=== PATIENT | female | born 1965 | race Caucasian/White ===

== ENCOUNTER 2022-06-26 09:39 | Outpatient (CLI) | payer BC, SELFPAY ==
[2022-06-26 11:23] LABS: INR 1.06 (0.91-1.10); Prothrombin Time 14.3 Seconds
== END 2022-06-26 09:40 | disposition home or self-care (01) ==
LOC: NFLDREF 09:40
PROVIDERS: PCP Family Medicine; Visit Provider Family Medicine
DX: Z01.818 Encounter for other preprocedural examination (principal)
CPT/HCPCS: 85610

== ENCOUNTER 2022-11-02 08:02 | Day surgery (SDC) | payer BC, SELFPAY ==
[2022-11-02] VITALS (14 sets, daily range): BP systolic 88–123; BP diastolic 54–94; PULSE 45–64; RESP 16; TEMP 36.2–36.4; O2SAT 94–99; BMI 28.0
[2022-11-02] MEDS: SODIUM CHLORIDE 0.9 % (FLUSH) 10 ML SYRINGE IVF (08:18)
[2022-11-02] MEDS: LACTATED RINGERS 1000 ML 1,000 ML 100 ML IV (08:18)
[2022-11-02] MEDS: CEFAZOLIN 2 GM in 0.9 % SODIUM CHLORIDE Mini-bag 100 ML IVPB (11:12)
[2022-11-02] MEDS: ROPIVACAINE 0.5% 30 ML 150 MG INJECTION (11:42)
--- NOTE | 2022-11-02 11:54 | W.ANESCHARGE ---
Anesthesia Charges Start Date/Time Anesthesia Start Date: 11/02/22 Anesthesia Start Time: 11:02 Stop Date/Time Anesthesia Stop Date: 11/02/22 Anesthesia Stop Time: 11:52 Summary Emergency: No
--- NOTE | 2022-11-02 12:00 | PM.ORPRC ---
Procedure Note Date of procedure: 11/02/22 Procedure: PREOPERATIVE DIAGNOSIS: 1. Left knee medial meniscus tear POSTOPERATIVE DIAGNOSIS: 1. Left knee medial meniscus tear PROCEDURE: 1. Left knee arthroscopic partial medial menisectomy SURGEON: Kang Jennings M.D. NUCLEAR CHEMISTRY TECHNICIAN: Otto MCKEON. Of note, an internet marketing assistant was critical for this case to aid in patient positioning, knee manipulation, instrument exchange, and closure. ANESTHESIA: Spinal EBL: 2ml TOURNIQUET: 25 minutes at 300 torr COMPLICATIONS: None evident INDICATIONS: The patient is a pleasant 57-year-old female who has experienced left knee pain particularly with any twisting or turning. Physical exam was concerning for medial meniscus tear, this was confirmed on MRI. Additionally, attempted nonoperative management has been tried, and failed. Thus, surgery was recommended. FINDINGS: Radial tear primarily but somewhat complex posterior horn medial meniscus. Posterior root was intact. ACL and PCL were intact robust. Lateral compartment showed intact lateral meniscus. 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 No loose bodies. DESCRIPTION OF PROCEDURE: After a thorough discussion of risks, benefits, and alternatives, the patient was brought to the operating room and placed upon the operating table. Induction of anesthesia was undertaken as previously noted. 2g iv Ancef was administered within 1 hr of incision preoperatively. Appropriate time-out was performed identifying proper patient, site, and procedure. The left lower extremity was prepped and draped in the appropriate sterile fashion using ChloraPrep. The limb was exsanguinated and tourniquet inflated. Anterolateral and anteromedial portals were established with an 11 blade, and a diagnostic arthroscopy was performed. This identified the findings as noted above. Following the diagnostic arthroscopy, a partial medial menisectomy was performed with the combination of basket forceps and a motorized shaver. Following this, the meniscus was re-probed and found to be stable. Approximately 15 % of the overall meniscus required resection. At this stage, the shaver was reinserted into the suprapatellar pouch and all remaining meniscal debris was evacuated. Instruments were removed, excess fluid was drained, and closure performed with 4-0 Monocryl with Steri-Strips. Dressings were applied, the tourniquet deflated, and the patient was awoken from anesthesia and transferred to the PACU in stable condition. PLAN: 1. Weightbear as tolerated operative extremity. Crutch / walker ambulation assistance PRN. Straight leg raise to be initiated starting tomorrow by the patient. 2. Ice, acetominophen and/or ibuprofen, and Percocet for pain as needed. 3. Knee range of motion and quad sets/straight leg raise regularly 4. Follow up with PA visit in 7-10 days. for a wound check. Initiate physical therapy at that time
--- NOTE | 2022-11-02 12:18 | W.ANESCHARGE ---
Anesthesia Charges Start Date/Time Anesthesia Start Date: 11/02/22 Anesthesia Start Time: 11:02 Stop Date/Time Anesthesia Stop Date: 11/02/22 Anesthesia Stop Time: 11:52 Summary Emergency: No
== END 2022-11-02 13:39 | disposition home or self-care (01) ==
PROVIDERS: PCP Family Medicine; Visit Provider Orthopaedic Surgery Sports Medicine
PROC: (CPT 29870; principal; 2022-11-02 10:00)
DX: S83.232A Complex tear of medial meniscus, current injury, left knee, initial encounter (principal); M25.562 Pain in left knee; M94.262 Chondromalacia, left knee
CPT/HCPCS: 29881; 01400; J0690; J1100; J2250; J2400; J2405; J2795; J3010; J7120

== ENCOUNTER 2023-02-12 10:45 | Outpatient (RCR) | payer BC, SELFPAY | END 2023-06-10 23:59 | disposition home or self-care (01) | PROVIDERS: PCP Family Medicine; Visit Provider Specialist | DX: M48.062 Spinal stenosis, lumbar region with neurogenic claudication (principal); Z51.89 Encounter for other specified aftercare | CPT/HCPCS: 97110; 97140; 97162 ==

== ENCOUNTER 2023-03-31 10:16 | Outpatient (RCR) | payer BC, SELFPAY ==
--- OUTSIDE RECORDS SUMMARY | 2022-08-04 13:17 | XMS_ITS | Clinical Summary ---
:1965 Author Organization [facility] [place] [address] Care Team Providers Name Role Phone Mercedez Church MD Primary Care Provider [phone] Allergies Active Allergy Reactions Severity Noted Date Comments Hydroxychloroquine Rash Low 12/18/2021 Venom-Honey Bee Hives High 12/18/2021 Medications Medication Sig Dispensed Refills Start Date End Date Status calcium Take 1 Tablet by 0 Act josh carbonate-vitamin D3, mouth once daily. 600 mg-125 unit, tablet zinc gluconate 50 mg Take 50 mg by mouth 0 Active tablet once daily. cholecalciferol Take 3,000 units by 0 Active (VITAMIN D3) 1,000 mouth once daily. unit tablet thyroid (ARMOUR Take 30 mg by mouth 0 04/17/2021 Active THYROID) 30 mg tablet once daily. folic acid 1 mg Take 1 mg by mouth 0 Active tablet once daily. EPINEPHrine (AUVI-Q) Inject 0.15 mg 0 04/18/2020 Active 0.15 mg/0.15 mL atIn intramuscular each auto-injector time if needed for Anaphylaxis or Allergic Reaction. escitalopram oxalate Take 10 mg by mouth 0 2 Active (LEXAPRO) 10 mg once daily. tablet methotrexate Take 12.5 mg by 0 A ctive (RHEUMATREX) 2.5 mg mouth every Wednesday. tablet nadoloL (CORGARD) 80 Take 80-120 mg by 0 12/24/2021 Active mg tablet mouth once daily. pregabalin (LYRICA) Take 75 mg by mouth 0 04/17/2021 Active 75 mg capsule once daily. rizatriptan (MAXALT) Take 10 mg by mouth 0 Active 10 mg tablet 2 times daily if needed for Migraine. cycloSPORINE 0.05 % Place 1 Drop into 0 Active drop the eye(s) twice daily 12 hours apart. magnesium citrate 100 Take 100 mg by 0 Active mg tab mouth once daily. acetaminophen Take 2 Tablets 0 07/02/2022 Active (TYLENOL EXTRA (1,000 mg) by mouth STRGTH) 500 mg every 6 hours if tabletIndications: needed for Pain. Acute post-operative Max acetaminophen pain dose: 4000mg in 24 hrs. oxyCODONE Take 1 to 2 Tablets 35 Tablet 0 07/02/2022 Active (ROXICODONE) 5 mg (5-10 mg) by mouth immediate release every 4 hours if tabletIndications: needed for Pain. Acute post-operative pain sennosides-docusate Take 1 to 4 Tablets 30 Tablet 0 07/02/2022 Active (SENOKOT S) (8.6-50 by mouth twice mg) daily. tabletIndications: Constipation due to opioid therapy methocarbamoL Take 1 Tablet (750 30 Tablet 0 07/02/2022 Active (ROBAXIN) 750 mg mg) by mouth every tabletIndications: 6 hours if needed Acute post-operative for Muscle Spasm. pain WalkerIndications: Walker with front 1 Each 0 07/02/2022 Active Rheumatoid arthritis wheels for home use with rheumatoid for 3 months. factor of multiple sites without organ or systems involvement (HC) Active Problems Problem Noted Date Anxiety disorder 06/30/2022 Essential tremor 06/30/2022 Fibromyalgia 06/30/2022 Hypothyroidism 06/30/2022 Migraine 06/30/2022 Rheumatoid arthritis with rheumatoid factor of multipl e sites without 06/30/2022 organ or systems involvement S/P lumbar fusion 06/30/2022 Encounters Date Type Specialty Care Team Description 06/30/2022 Anesthesia Event Emmanuel Davis MD Augustin, Joshua Ryan, DO 06/30/2022 Surgery Dora Castellano Decompression - MD Dang Hemilaminotomy/ Discectomy L3 to: L5, Post erior Spine Fusion wi th Instrumentation L3 to: L5 06/30/2022 - Hospital Encounter Dora Castellano Acute pos t-operative pain (Primary Dx); 07/02/2022 MD Dang Constipation du e to opioid therapy; Rheumatoid arth ritis with rheumatoid factor of multiple sites without organ or systems involvement (HC) Discharge Summary - Rae Danielle NP - 07/16/2022 1:33 PM CDT HOSPITAL DISCHARGE SUMMARY Patient Name: Sujata fajardo Date of : 1965 Age: 57 y.o. [id number] Primary Physician: Mercedez Church MD Admission Date: 06/30/2022 Discharge Date: 07/02/2022 Ms. Sujata Russell is a 5 7 y.o. who underwent Decompression - Hemilaminotomy/Discectomy L3 to: L5, Posterior Spine Fusion with Instrumentation L3 to: L5, Transforaminal Lumbar Interbody Fusion L3 to: L5 on 06/30/[address] Rena rodriges, Dora Leong MD; anesthesia General, EBL 100 ml, OR time 2 Hr 56 Min 22 Sec with no immediate complications. She will be discharged from [facility] to home. PRINCIPAL DIAGNOSIS CAUSING ADMISSION: 1) Stenosis, Lumbar - w/Neurogenic Claudication M48.0622) Spondylolisthesis, Lumbar M43.16 DISCHARGE MEDICATIONS Your Home Medicines START taking these medicines Instructions acetaminophen 500 mg tablet For diagnoses: Acute post-op erative pain Commonly known as: TYLENOL E XTRA STRGTH Take 2 Tablets (1,000 mg) b y mouth every 6 hours if needed for Pain. Max acetaminophen dose: 4000mg in 24 hrs. methocarbamoL 750 mg tablet For diagnoses: Acute post-op erative pain Commonly known as: ROBAXIN Take 1 Tablet (750 mg) by m outh every 6 hours if needed for Muscle Spasm. oxyCODONE 5 mg immediate rel ease tablet For diagnoses: Acute post-op erative pain Commonly known as: ROXICODON E Take 1 to 2 Tablets (5-10 m g) by mouth every 4 hours if needed for Pain. sennosides-docusate (8.6-50 mg) tablet For diagnoses: Constipation due to opioid therapy Commonly known as: SENOKOT S Take 1 to 4 Tablets by mout h twice daily. Walker For diagnoses: Rheumatoid ar thritis with rheumatoid factor of multiple sites without organ or systems involvement (HC) Walker with front wheels fo r home use for 3 months. CONTINUE taking these medici mamie Instructions calcium carbonate-vitamin D3 (600 mg-125 unit) tablet Take 1 Tablet by mouth once daily. cholecalciferol 1,000 unit t ablet Commonly known as: VITAMIN D 3 Take 3,000 units by mouth o nce daily. cycloSPORINE 0.05 % Drop Place 1 Drop into the eye(s ) twice daily 12 hours apart. EPINEPHrine 0.15 mg/0.15 mL auto-injector Commonly known as: AUVI-Q Inject 0.15 mg intramuscula r each time if needed for Anaphylaxis or Allergic Reaction. escitalopram oxalate 10 mg t ablet Commonly known as: LEXAPRO Take 10 mg by mouth once da suyapa. folic acid 1 mg tablet Take 1 mg by mouth once brinda ly. magnesium citrate 100 mg Tab Take 100 mg by mouth once d aily. methotrexate 2.5 mg tablet Commonly known as: RHEUMATRE X Take 12.5 mg by mouth every Wednesday. nadoloL 80 mg tablet Commonly known as: CORGARD Take 80-120 mg by mouth onc e daily. pregabalin 75 mg capsule Commonly known as: LYRICA Take 75 mg by mouth once da suyapa. rizatriptan 10 mg tablet Commonly known as: MAXALT Take 10 mg by mouth 2 times daily if needed for Migraine. thyroid 30 mg tablet Commonly known as: ARMOUR TH YROID Take 30 mg by mouth once da suyapa. zinc gluconate 50 mg tablet Take 50 mg by mouth once da suyapa. Where to get your medicines These medications were sent to [facility] [address] [address] Hours: Open 24 Hours ?? methocarbamoL 750 mg tabl et ?? oxyCODONE 5 mg immediate release tablet ?? sennosides-docusate (8.6- 50 mg) tablet You have received printed pr escription(s) for these medicines or supplies. Take these to your preferred pharmacy. Bring a paper prescription f or each of these medications ?? Walker Prescriptions for these medi cines or supplies were NOT printed nor sent to your preferred pharmacy. Check with your doctor if you have questions. Check with your doctor if yo u have questions. ?? acetaminophen 500 mg tabl et FOLLOW-UP: She should return to clinic in 6 weeks or as scheduled Additional followup: NA BRIEF HOSPITAL COURSE: This 57 y.o. female [facility] Procedure(s): Decompression - Hemilaminoto my/Discectomy L3 to: L5, Posterior Spine Fusion with Instrumentation L3 to: L5 Transforaminal Lumbar Interb scott Fusion L3 to: L5. The patient had a stable post operative course. Standard prophylactic antibiotics were administered for 24 hours post surgery and the patient received D VT prophylaxis per service p rotocol. The patient's pain was initially controlled on intravenous pain medications and then weaned to oral medications prior to discharge. The patients pain was well contro lled and they met mobility e xpectations appropriate for the discharge location. The patient has normal bowel and bladder function. The incision is clean, dry and intact. Physical Examination: Appears comfortable Alert and oriented. Appropri ate. Pleasant mood. Incision covered - clean and dry Motor exam: Grossly intact symmetrically against moderate resistance in BLE along: Quads/Hamsrings/TA/ EHL/GS Sensory exam: Intact to light touch symmet rically throughout the BLE. Vascular exam: Distal pedal pulses intact t o palpation symmetrically in BLE. No significant distal edema in BLE. Abdomen: soft, non-tender No sustained beats of ankle clonus. No calf tenderness to palpat ion. SCDs in place. PROCEDURES PERFORMED DURING HOSPITALIZATION: Procedure(s): Decompression - Hemilaminoto my/Discectomy L3 to: L5, Posterior Spine Fusion with Instrumentation L3 to: L5 Transforaminal Lumbar Interb scott Fusion L3 to: L5 COMPLICATIONS IN HOSPITAL: N A IMPORTANT PENDING TEST RESUL TS: NA PERTINENT FINDINGS/RESULTS A T DISCHARGE: NA After Discharge Orders and I nstructions Additional information abou t your medicines: Prescription Pain Medicine: - When at home, alternate Ty lenol and your prescription pain medication (oxycodone, hydromorphone, morphine, tramadol) for better control of breakthrough pain. Alternating between the two types of medications helps control pain better. - Do not drink alcohol while taking prescription pain medicine. - Do not drive any motor veh icles while taking prescription pain medicines or any medicines that make you sleepy. - Take the medicine at the t leesa of the day when you most often feel pain. This may be: when you wake up in the morning, before you start certain activities, or when you are ready for bed. Cutting back strategies: - As your pain decreases, yo u can go for longer times between doses (from 4 hours to 6 or 8 hours). - Reduce dose by taking a sm aller amount per dose, such as 1 pill instead of 2 or ?? instead of 1, especially for Opioid medications. - Start decreasing pain medi cine as your pain decreases. Tylenol: (acetaminophen) - When at home, alternate Ty lenol and your prescription pain medication (oxycodone, hydromorphone, morphine, tramadol) for better control of breakthrough pain. Alternating the two medications helps with breakthrough pain. - Many pain medicines have a cetaminophen in them. Do not take more than 3,000 to 4,000 milligrams (3-4 grams) of acetaminophen in 24 hours (more than that could damage your liver) - Acetaminophen is also foun d in cough and cold medicines. What if the above strategies do not control your pain? If the above solutions do not help, contact your surgeon. Additional information abou t your medicines: Make sure you are taking st ool softeners while you are taking prescription pain medications (narcotics), to prevent constipation. After Hospital Follow Up Ap pointment(s) Please follow up with Dora Voss MD at [facility] in 4- 6 weeks. If you follow with your surg tammy at [facility], call [phone] for questions, or to make an appointment. If you follow with your surg tammy at [facility], please call [facility] at [phone] When to follow up: 4 to 6 w eeks Caring for your wound or in cision: - Steri Strips will fall of f on their own; do not remove them. - No need to cover your inci ashley. - You may take a shower. It is okay to get the incision wet. Do not scrub the incision. Gently pat it dry. - Do not soak, rub, or scrat ch the incision. - DO NOT put any ointment, c ream, or lotions on the incision for 6 weeks. - IF the incision starts dr pablo, do not get it wet. Please cover it with gauze and call the surgeon at [phone]. Information about NSAIDS NSAIDs (Non-Steroidal Anti- Inflammatories): A) For fusion surgeries: - If your surgeon approves u se of NSAIDs, you may take non steroid anti- inflammatory drugs such as Ibuprofen (Advil??, Motrin??), Relafen??, Naproxen (Aleve??) for a period of 3-5 days for breakthrough pain especially after supply of Opioid medications is completed. Do not take these medications unless your surgeon approved it, as these medicines may interfere with bone healing. B) For decompression surgeri es: - If you took medications ramires ch as Ibuprofen (Advil??, Motrin??), Relafen??, Naproxen (Aleve??), Celebrex?? before surgery, this can be resumed 72 hours after surgery. Do not take if you have been told by a physician to avoid these medications. Information about smoking a nd healing: - DO NOT SMOKE - nicotine interferes with t he healing process - accept help from family an d friends Information about your medi cation refills: For Opioid medication refil ls: - Be sure to call your surge on for refills at least 24 hours prior to need (prescription pain medications may need more time, as a written prescription is needed for refills). MEDICATIONS cannot be refi lled on weekends or holidays , or after 4:00 p.m. during the week. Moving around after your ho spital visit: - do not bend, twist, lift or sit for long periods of time - No lifting more than 5 bright nds - do not put your head below the level of your heart - walking is a very importan t part of your recovery - walk a little further each day - it is best to walk on leve l ground - do not use stair climbing for exercise - you may climb stairs as ne eded, but not for exercise - YOUR ONLY EXERCISE PROGRAM RIGHT NOW IS WALKING - follow your physical thera py or rehabilitation program as instructed by your surgeon - follow specific exercise p sylvesterram outlined in the spine manual by your surgeon, therapist, supervisor poultry processing - stay away from hot tubs, t ub baths, pools, lakes until your surgeon has given you the OK - shower as directed by your health care provider Patient Instruction post bl adder scan Same Day Discharge patients If unable to urinate in 6-8 hours after discharge, return to Emergency Room with your discharge instructions. Primary Care Provider christofer w up appointment(s) Follow up with your Primary Care Provider in 5 days When to follow up: 1 to 5 d ays Recommendations for outpati ent provider Specific recommendations to be addressed at the follow up visit - routine post-op visit Reason(s) medications were s topped or changed - Anticoagulation/Oxygen Recom mendations - Tests and Studies needed - Remove dressing, then leave open to air: If you leave the hospital w ith a dressing over your incision, you can remove this when you get home. If your incision begins to drain, cover and call the office for further instructions. What you may eat and drink after your hospital stay: DIET: - eat a nutritionally well-b alanced diet - eat small amounts more oft en - less physical activity, ramires rgery and medication can cause constipation - increase fiber (fruits, wh ole grains and raw vegetables) and fluids - drink 6-8 glasses of water per day to prevent constipation When should you be concerne d? Your surgeon is Emerald Castellano MD Please call your surgeon if you have any of the following: - temperature above 101.6 de grees Fahrenheit - nausea and vomiting that w ill not stop - severe uncontrolled pain - redness, tenderness, drain age from the incisional area that will not stop, or signs of infection (pain, swelling, redness, unpleasant odor, warmth, or green or yellow discharge around the site) - severe headache - visual disturbances - dizziness or lightheadedne ss that will not stop - hives (itchy raised rash) - difficulty breathing - extreme fatigue (cannot ge t out of bed) - any change in sensation ramires ch as new numbness or tingling - any change in movement suc h as new weakness or inability to move arms or legs as usual - new confusion - any change or loss in zachery l or bladder function - burning or urgency on urin ation - if no bowel movement in th ree (3) days - chest pain - if any worries about the f it of your brace - any other questions or wor jo-ann you may have after discharge - in an emergency, CALL 911 or go to an Emergency Department at a nearby hospital [facility] The reason you were in the hospital is for spine surgery. Your incision was closed wi th: - Steri Strips; they will f all off on their own; do not remove them. Total time spent for dischar ge on date of discharge: 20 minutes Rae Danielle CNP [facility] 06/29/2022 Travel 06/21/2022 Refill Orion Pham MD Refi ll Request (Meloxicam) from Last 3 Months Social History Tobacco Use Types Packs/Day Years Used Date Never Smoker Smokeless Tobacco: Never Used Tobacco Cessation: Counseling Given: Yes Alcohol Use Standard Drinks/Week Comments Yes 0 (1 standard drink = 0.6 oz pure alcoho l) rare Alcohol Habits Answer Date Recorded How often do you have a drink containing alcohol? Not asked How many drinks containing alcohol do you have on a typical Not asked day when you are drinking? How often do you have six or more drinks on one occasion? No t asked Comment: rare 06/29/2022 Sex Assigned at Date Recorded Not on file Obstetrics History Last Filed Vital Signs Vital Sign Reading Time Taken Comments Blood Pressure 125/79 07/02/2022 7:33 AM CDT Pulse 59 07/01/2022 3:00 PM CDT Temperature 36.8 ??C (98.2 ??F) 07/02/2022 7:33 AM CDT Respiratory Rate 16 07/02/2022 7:33 AM CDT Oxygen Saturation 96% 07/02/2022 7:33 AM CDT Inhaled Oxygen Concentration - - Weight 78.7 kg (173 lb 6.4 oz) 06/30/2022 8:02 AM CDT Height 170.2 cm (5' 7) 06/30/2022 8:02 AM CDT Body Mass Index 27.16 06/30/2022 8:02 AM CDT Plan of Treatment Health Maintenance Due Date Last Done Comments Tdap 1976 Depression screening for age 12+ 1977 BMI (ht and wt on same day) for 1983 age 18+ Hepatitis C screening for age 0705/27/1983 18-79 Zoster (shingles) series for age 0705/27/1984 50+ (1 of 2) Tetanus booster 1985 Colonoscopy through age 75 2010 Lipids for age 45-75 2010 Mammogram for age 45-75 2010 Pap test for age 21-65 08/20/2020 08/20/2017, 08/20/2017, 10/05/2014, Additional history exists COVID-19 vaccine series (3 - 06/09/2022 05/12/2022, 021 Pfizer risk series) Influenza for age 50-64 07/23/2022 Medical Devices Implanted Type Area Senior Sql Developer Device Shelf Model / Identifier Expiration Serial / Date Lot [id number] 6cc Patterson Dbf Putty Dbm N/A: [employer] 06/04/2024 [id number] / Implanted: Qty: 1 on 06/30/2022 by Dora Voss MD at [facility] [id number] / Explanted: at [facility] (Quantity not on file) Procedures Procedure Name Priority Date/Time Associated Diagnosis Comme nts HEMOGLOBIN Early AM 07/02/2022 7:40 Results for this AM CDT procedure are i n the results section. XR SPINE LUMBAR 2 Routine 07/01/2022 12:38 Result s for this VIEWS PM CDT procedure are i n the results section. XR SPINE 1 VIEW Routine 06/30/2022 10:08 Results for this PORTABLE AM CDT procedure are i n the results section. XR SPINE LUMBAR 2 Routine 06/30/2022 9:54 Results for this VIEWS PORTABLE AM CDT procedure are in the results section. XR SPINE 1 VIEW Routine 06/30/2022 9:04 Results f or this PORTABLE AM CDT procedure are i n the results section. XR SPINE 1 VIEW Routine 06/30/2022 8:30 Results f or this PORTABLE AM CDT procedure are i n the results section. ENDOTRACHEAL TUBE Routine 06/30/2022 8:01 Results for this AM CDT procedure are i n the results section. ENDOTRACHEAL TUBE Routine 06/30/2022 8:01 Results for this AM CDT procedure are i n the results section. ENDOTRACHEAL TUBE Routine 06/30/2022 8:01 Results for this AM CDT procedure are i n the results section. FUSION TRANSFORAMINAL Tier 3 06/30/2022 7:10 1) Stenosis, Lum bar SPINAL INTERBODY LEVEL AM CDT - w/Neurogenic 2 Claudication M48.0622) Spondylolisthesis, Lumbar M43.16 Case Notes [facility] [address] FUSION POSTERIOR SPINE Tier 3 06/30/2022 7:10 AM CDT 1) Steno sis, Lumbar - LEVEL 02 w/Neurogenic Claudication M48.0622) Spondylolisthesis, Lumbar M43.16 Case Notes [facility] [facility] Vitality[facility] Special Needs Wt 177 HEMOGLOBIN Early AM 06/30/2022 6:37 AM CDT Resul ts for this procedure are i n the results section . EKG 12 LEAD Routine 06/30/2022 6:25 AM CDT Resul ts for this procedure are i n the results section . SCAN CORRESP-LABORATORY 06/29/2022 12:00 AM CDT Results for this RESULTS procedure are i n the results section . from Last 3 Months Results Hemoglobin AM (07/02/2022 7:40 AM CDT)Only the most recent of2 resultswithin the time period is included. P athologist Signature HEMOGLOBIN 13.3 12.0 - 16.0 07/02/2022 [facility] g/dL 8:45 AM CDT LABORATORY[facility] MCV 94 80 - 100 fL 07/02/2022 [facility] 8:45 AM CDT LABORATORY-[facility] Specimen Anatomical Collection Method / Collection Time Recei jeff Time (Source) Location / Volume Laterality Blood BLOOD SPECIMEN / Venipuncture / 07/02/2022 7:40 2021 7:49 Unknown Unknown AM CDT AM CDT Alfonso Sanchez MD HEMATOLOGY Performing Organization Address City/State/ZIP Code Phon e Number [facility] [address] [place] [address] LABORATORY-CENTRAL 2000 LABORATORY XR SPINE LUMBAR 2 VIEWS (07/01/2022 12:38 PM CDT) Anatomical Region Laterality Modality LUMBAR SPINE Digital Radiography Specimen (Source) Anatomical Collection Method Collection Time Re ceived Time Location / / Volume Laterality 07/01/2022 2:16 PM CDT Impressions 07/01/2022 2:16 PM CDT Posterior and interbody fusion L3-L5. Dictated by Emmanuel Castle MD @ Jul 01 2 022 ??2:16PM (Electronically Signed) ?? Narrative 07/01/2022 2:16 PM CDT For Patients: ??As a result of the Cures Act, medical imaging exams and procedure report s are released immediately into your [facility] medical record. ??You may view this report before your referring provider. ??If you have questions, please contact your health care provider. Indication: Spinal fusion Technique: Lumbar spine 2 view Procedure Note Emmanuel Castle MD - 07/01/2022For matting of this note might be different from the original. For Patients: As a result of the Cures Act, medical imaging exams and procedure reports are released immediately into your electronic medical record. You may view this report before your referring provider. If you have questions, please contact yo health care provider. Indication: Spinal fusion Technique: Lumbar spine 2 view IMPRESSION: Posterior and interbody fusion L3-L5. Dictated by Emmanuel Castle MD @ Jun 10 2 022 2:16PM (Electronically Signed) [facility] XR SPINE 1 VIEW PORTABLE (06/30/2022 10:08 AM CDT)Only the most recent of3 resultswithin the time period is included. Anatomical Region Laterality Modality Spine, CERVICAL SPINE, THORACIC SPINE, LUMBAR SPINE Digital Radiography Specimen (Source) Anatomical Collection Method Collection Time Re ceived Time Location / / Volume Laterality 06/30/2022 2:27 PM CDT Impressions 06/30/2022 2:27 PM CDT Interbody and posterior fusion L3-L5. Dictated by Emmanuel Castle MD @ Jun ??2021 ??2:27PM (Electronically Signed) ?? Narrative 06/30/2022 2:27 PM CDT For Patients: ??As a result of the Cures Act, medical imaging exams and procedure report s are released immediately into your [facility] medical record. ??You may view this report before your referring provider. ??If you have questions, please contact your health care provider. Indication: Spinal fusion Technique: Lumbar spine 1 view Procedure Note Emmanuel Castle MD - 06/30/2022For matting of this note might be different from the original. For Patients: As a result of the Cures Act, medical imaging exams and procedure reports are released immediately into your electronic medical record. You may view this report before your referring provider. If you have questions, please contact [facility] health care provider. Indication: Spinal fusion Technique: Lumbar spine 1 view IMPRESSION: Interbody and posterior fusion L3-L5. Dictated by Emmanuel Castle MD @ Jun 30 2:27PM (Electronically Signed) Dora Castellano MD GENERAL IMAGING XR SPINE LUMBAR 2 VIEWS PORTABLE (06/30/2022 9:54 AM CDT) Anatomical Region Laterality [facility] Spine, LUMBAR SPINE Digital Radiography Specimen (Source) Anatomical Collection Method Collection Time Re ceived Time Location / / Volume Laterality 06/30/2022 2:27 PM CDT Impressions 06/30/2022 2:27 PM CDT Posterior and interbody fusion L3-L5. Dictated by Emmanuel aCstle MD @ Jun ??2021 ??2:27PM (Electronically Signed) ?? Narrative 06/30/2022 2:27 PM CDT For Patients: ??As a result of the Cures Act, medical imaging exams and procedure report s are released immediately into your [facility] medical record. ??You may view this report before your referring provider. ??If you have questions, please contact your health care provider. Indication: Spinal fusion Technique: Lumbar spine 2 view Procedure Note Emmanuel Castle MD - 06/30/2022For matting of this note might be different from the original. For Patients: As a result of the Cures Act, medical imaging exams and procedure reports are released immediately into your electronic medical record. You may view this report before your referring provider. If you have questions, please contact [facility] care provider. Indication: Spinal fusion Technique: Lumbar spine 2 view IMPRESSION: Posterior and interbody fusion L3-L5. Dictated by Emmanuel Castle MD @ Jun 30 2:27PM (Electronically Signed) Dora Castellano MD GENERAL IMAGING HCHG TUBE PR1, HCHG STYLET PR1, HCHG MOUTHPIECE PR1 (06/30/2022 8:01 AM CDT) Narrative Alie Antonio CRNA - 06/30/2022 8:01 AM CDT Alie Antonio CRNA ? 06/30/2022 ??8:01 AM Procedure: ETT Patient location during procedure: OR ETT Properties Mask Ventilation: easy Final Technique: direct laryngoscopy Type: straight Location: oral Cuffed: yes Tube Size: 7.5 mm Stylet: yes Laryngoscope Blade: Mac Blade Size: 3 Cormack-Lehane Grade View: 1 Insertion Attempts: 1 Placement Verification: auscultation, en d tidal CO2, symmetrical chest wall movement and cuff palpation Assessment: pharynx clear, atraumatic an d dentition unchanged Secured at: 23 Measured From: lips Tooth guard used and removed: yes Bite Block: soft Difficulty: 0 (not difficult) Electronically signed by Alie Antonio CRNA ? Emmanuel Davis MD ANESTHESIA PX NOTE ORDERABLE S EKG 12 LEAD (06/30/2022 6:25 AM CDT) Component Value Ref Range Test Analysis Performed Pathologis t Method Time At Signature Interpretation Sinus bradycardia BEYOND NOW Otherwise normal ECG No previous ECGs available Ventricular Rate 58 BPM BEYOND NOW Atrial Rate 58 BPM BEYOND NOW P-R Interval 160 ms BEYOND NOW QRS Duration 82 ms BEYOND NOW QT 456 ms BEYOND NOW QTc 447 ms BEYOND NOW P Baird 31 degrees BEYOND NOW R Baird 55 degrees BEYOND NOW T Baird 65 degrees BEYOND NOW Specimen Anatomical Collection Method Collection Time Receive d Time (Source) Location / / Volume Laterality 06/30/2022 6:25 AM 5:22 CDT PM CDT Jet Harris DO EKG ORD Performing Organization Address City/State/ZIP Code Phon e Number BEYOND NOW [place], [place] [employer] RESULTS (06/29/2022 12:00 AM CDT) Narrative 06/29/2022 12:00 AM CDT This result has an attachment that is no t available. Ordered by an unspecified provider. Other Clinical Staff OTHER from Last 3 Months Insurance Payer Benefit Plan / Subscriber ID Effective Dates Phone Addre ss Type Group BLUE CROSS BLUE CROSS OF [id number] 2021-Present [address] [address] [place] [address] Advance Directives Latest Code Status on File Code Status Date Activated Date Inactivated Comments Full Code 06/30/2022 11:20 AM 07/02/2022 6:22 PM Code Status Discussion: Unable to Assess Preferences, Provid er to review later Care Teams Professor Of Surgery Relationship Specialty Start Date End Date Mercedez Church MD PCP - General Family Practice 01/22/221999 [place] [address]
[2022-08-04 13:56] LABS: Albumin* 4.4 g/dL (3.3-5.0)
[2022-08-04 13:58] LABS: Aspartate Amino Transferase* 91 U/L (12-35); Creatinine* 0.9 mg/dL (0.5-1.5); Estimated Glomerular Filt Rate 75 ml/min
[2022-08-04 13:59] LABS: Alanine Aminotransferase* 76 U/L (4-35)
[2022-08-04 14:02] LABS: Basophils Absolute Auto 0.04 K/uL (0.00-0.30); Basophils Percent Auto 0.7 % (0.0-3.0); Eosinophils Percent Auto 3.4 % (0.0-7.0); Hematocrit 40.7 % (33.0-51.0); Hemoglobin* 13.2 gm/dL (12.0-16.0); Immature Granulocytes Abs Auto 0.01 K/uL (0.00-0.30); Lymphocytes Absolute Auto 1.32 K/uL (0.90-2.90); Lymphocytes Percent Auto 22.1 % (20-44); Mean Corpuscular HGB Conc 32 gm/dL (32-36); Mean Corpuscular Hemoglobin 31 pg (26-34); Mean Corpuscular Volume 94 fL (80-100); Monocytes Percent Auto 8.9 % (0.0-11.0); Neutrophils Absolute Auto 3.86 K/uL (1.7-7.0); Neutrophils Percent Auto 64.7 % (42.0-72.0); Platelet Count* 272 K/uL (140-440); RDW Coefficient of Variation % 13.6 % (11.5-15.5); Red Blood Count 4.32 m/uL (4.00-5.20); White Blood Count* 5.96 K/uL (4.50-11.00)
[2022-08-04 14:07] LABS: C Reactive Protein* 0.7 mg/dL (0.5-1.0)
[2022-08-04 14:37] LABS: Slide Review Reflex No
[2022-08-04 14:55] LABS: Erythrocyte SedimentationRate* 12 mm/hr (2-20)
[2022-12-30 12:14] LABS: Basophils Absolute Auto 0.05 K/uL (0.00-0.30); Basophils Percent Auto 0.8 % (0.0-3.0); Eosinophils Absolute Auto 0.26 K/uL (0.00-0.50); Hematocrit 44.5 % (33.0-51.0); Hemoglobin* 14.4 gm/dL (12.0-16.0); Immature Granulocytes Abs Auto 0.01 K/uL (0.00-0.30); Immature Granulocytes Pct Auto 0.2 %; Lymphocytes Absolute Auto 1.52 K/uL (0.90-2.90); Lymphocytes Percent Auto 23.5 % (20-44); Mean Corpuscular HGB Conc 32 gm/dL (32-36); Mean Corpuscular Hemoglobin 31 pg (26-34); Mean Corpuscular Volume 96 fL (80-100); Monocytes Percent Auto 8.5 % (0.0-11.0); Neutrophils Absolute Auto 4.09 K/uL (1.7-7.0); Platelet Count* 287 K/uL (140-440); RDW Coefficient of Variation % 13.1 % (11.5-15.5); Red Blood Count 4.64 m/uL (4.00-5.20); White Blood Count* 6.48 K/uL (4.50-11.00)
[2022-12-30 12:21] LABS: Slide Review Reflex No
[2022-12-30 13:03] LABS: Erythrocyte SedimentationRate* 5 mm/hr (2-20)
[2022-12-30 13:08] LABS: Albumin* 4.1 g/dL (3.3-5.0)
[2022-12-30 13:11] LABS: Aspartate Amino Transferase* 33 U/L (12-35); Creatinine* 0.9 mg/dL (0.5-1.5); Estimated Glomerular Filt Rate 75 ml/min
[2022-12-30 13:12] LABS: Alanine Aminotransferase* 31 U/L (4-35)
[2022-12-30 13:15] LABS: C Reactive Protein* 0.5 mg/dL (0.5-1.0)
[2023-03-31 10:36] LABS: Basophils Absolute Auto 0.07 K/uL (0.00-0.30); Basophils Percent Auto 1.1 % (0.0-3.0); Eosinophils Absolute Auto 0.26 K/uL (0.00-0.50); Eosinophils Percent Auto 3.9 % (0.0-7.0); Hematocrit 43.4 % (33.0-51.0); Hemoglobin* 14.2 gm/dL (12.0-16.0); Immature Granulocytes Abs Auto 0.01 K/uL (0.00-0.30); Immature Granulocytes Pct Auto 0.2 %; Lymphocytes Absolute Auto 1.74 K/uL (0.90-2.90); Lymphocytes Percent Auto 26.2 % (20-44); Mean Corpuscular HGB Conc 33 gm/dL (32-36); Mean Corpuscular Hemoglobin 31 pg (26-34); Mean Corpuscular Volume 94 fL (80-100); Monocytes Percent Auto 6.2 % (0.0-11.0); Neutrophils Absolute Auto 4.15 K/uL (1.7-7.0); Neutrophils Percent Auto 62.4 % (42.0-72.0); Platelet Count* 287 K/uL (140-440); RDW Coefficient of Variation % 14.4 % (11.5-15.5); Red Blood Count 4.62 m/uL (4.00-5.20); White Blood Count* 6.64 K/uL (4.50-11.00)
[2023-03-31 10:38] LABS: Albumin* 4.1 g/dL (3.3-5.0)
[2023-03-31 10:40] LABS: Creatinine* 0.8 mg/dL (0.5-1.5); Estimated Glomerular Filt Rate 86 ml/min; Slide Review Reflex No
[2023-03-31 10:41] LABS: Alanine Aminotransferase* 30 U/L (4-35); Aspartate Amino Transferase* 34 U/L (12-35)
[2023-03-31 10:44] LABS: C Reactive Protein* 0.6 mg/dL (0.5-1.0)
[2023-03-31 11:17] LABS: Erythrocyte SedimentationRate* 5 mm/hr (2-20)
== END 2024-03-21 17:00 | disposition home or self-care (01) ==
LOC: LAB 10:16
PROVIDERS: PCP Family Medicine
DX: M05.79 Rheumatoid arthritis with rheumatoid factor of multiple sites without organ or systems involvement (principal); Z79.899 Other long term (current) drug therapy
CPT/HCPCS: 36415; 82040; 82565; 84450; 84460; 85025; 85651; 86140

== ENCOUNTER 2023-06-02 08:00 | Outpatient (CLI) | payer BC, SELFPAY ==
--- OUTSIDE RECORDS SUMMARY | 2023-06-02 08:03 | XMS_ITS | Continuity of Care Document ---
Author Name Unknown Organization [facility] Address [address] [place] [address] Phone Care Team Providers Care Agricultural Equipment Sales Manager Name Role Phone Dora Castellano MD Unavailable Unavailable Allergies, Adverse Reactions, Alerts Substance Reaction Status Criticality hydroxychloroquine Active No Inform ation bee venom protein (honey bee) Active No Information Medications Medication Instructions Dosage Effective Dates (start - stop) Status Comments CALCIUM 600-VIT D3 (unknown strength) Not Available - Active FOLIC ACID (unknown strength) Not Available - Active NADOLOL (unknown strength) Not Available - Active ESCITALOPRAM OXALATE (unknown strength) Not Available - Active MELOXICAM (unknown strength) Not Available - Active VITAMIN D3 (unknown strength) Not Available - Active METHOTREXATE (unknown strength) Not Available - Active RIZATRIPTAN (unknown strength) Not Available - Active PREGABALIN (unknown strength) Not Available - Active TRAMADOL HCL (unknown strength) Not Available - Active AUVI-Q (unknown strength) Not Available - Active ZINC (unknown strength) Not Available - Ac tive Procedures Procedure Date Office/Outpatient Visit,Est, Low 2022 Office/Outpatient Visit,Est, Mod 2021 Postop Followup Visit TLIF - Includes PSF at the same level - PA TLIF - Additional Level(s) Includes PSF at the same level - PA WHITLEY FACETC/FRMT ARTHRD LUM 1 WHITLEY FACTC/FRMT ARTHRD LUM EA Posterior Instrumentation, 3-6 Segments - PA PEEK/ Cage/ Implant, For Interbody Fusio n - PA TLIF - Includes PSF at the same level Au TLIF - Additional Level(s) Includes PSF at the same level WHITLEY FACETC/FRMT ARTHRD LUM 1 WHITLEY FACTC/FRMT ARTHRD LUM EA Posterior Instrumentation, 3-6 Segments PEEK/ Cage/ Implant, For Interbody Fusio n Autograft, From Same Incision 2 Allograft, Morcelized, and/or BMP Office/Outpatient Visit,New, Mod 2021 Advance Directives Directive Yes / No Effective Date File Name No Information Encounters Encounter Description Practice Location Reason(s) For Visit Diagnoses Date Provider Providers Copied on Encounter Office/Outpat ient Visit,Est, Low [facility], [address], [place], [place], [id number], [place] tel:[phone] [facility] Arthrodesis status 3 Mehbod Amir. [facility], [address] [place] [address], [id number] , [place]. tel:[phone] Referring Provider: Orion Pham [address], [address]. tel:[phone] Office/Outpat ient Visit,Est, Mod [facility], [address], [place], [place], [id number], [place] tel:[phone] [facility] Encounter for other specified surgical aftercare 2 Mehbod Amir. [facility], [address] [place] [address], [id number] , [place]. tel:[phone] Referring Provider: Orion Pham [address], [address]. tel:[phone] [facility], [address], [place], [id number], [place] tel:[phone] [facility] Encounter for other specified surgical aftercare 2 Mehbod Amir. [facility], [address], [place], [place], [id number] , [place]. tel:[phone] Referring Provider: Orion Pham [address], [address]. tel:[phone] [facility], [address], [place], [id number], [place] tel:[phone] [facility] No Information [address] Kavith[address]. [address] [place] [address] [address], [place], [place], [id number] , [place]. [phone] Referring Provider: Orion Pham [address], [address]. tel:[phone] [facility], [address], [place], [id number], [place] tel:[phone] [facility] No Information 2 Mehbod Amir. [facility], [address], [place], [place], [id number] , [place]. tel:[phone] Referring Provider: Orion Pham [address], [address]. tel:[phone] Office/Outpat ient Visit,[facility], [address], [place], [id number], [place] tel:[phone] [facility] No Information 2 Mehbod Amir. [facility], [address], [place], [place], [id number] , [place]. tel:[phone] Referring Provider: Orion Pham [address], [address]. tel:[phone] [facility], [address], [place], [id number], [place] tel:[phone] [facility] No Information 2 [facility], [address] [place] [address] [address], [place], [place], [id number] , [place]. tel:[phone] Family History Family Member Type Diagnosis Age At Onset No Information Payers Payer name Insurance type Covered democr[place] ID [id number] [place] [id number] Social History Type Description Quantity Date Captured Comments Alcohol Use Details Unknown Caffeine Use Details Unknown Tobacco Use Status Current non-smoker Smoking Status Never smoker Non-Smoking Tobacco Use Details : No Details Available : No Details Available Sex Female Vital Signs Date / Time: Height Weight BMI Pulse Rate Blood Pressure Temperature Respiratory Rate Body Surface Area Head Circumference Head Circ. Percentile Wt./Justo. Percentile BMI percentile Pulse Ox Inhaled Ox 9:36 AM 67.50 in 79.379 kg (175.00 lbs) 27.0 0 kg/m eter (2) Chief Complaint And Reason For Visit No Information Reason For Referral Reason For Referral No Information Plan Of Treatment Date Type Action Status No Information History Of Present Illness Encounter Date Complaint History Of Prese nt Illness No Information Functional Status Date Functional Assessmen t No Information Instructions Date Instruction Additional Infor mation No Information Assessments Type Assessment Date assessment Arthrodesis status Patient Care Teams Name Effective Dates (start - stop) Status Members No Information
--- OUTSIDE RECORDS SUMMARY | 2023-06-02 08:03 | XMS_ITS | Continuity of Care Document ---
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 Role Phone Bea Ames MD Unavailable Unavailable Allergies, Adverse Reactions, Alerts Substance Reaction Status Criticality HYDROXYCHLOROQUINE SULFATE Pruritic rash Active No Information Medications Medication Instructions Dosage Effective Dates (start - stop) Status Comments methotrexate sodium 2.5 mg tablet take 5 Tablet by Oral route every week 12.5 MG - Active FOLIC ACID 1 MG TABLET TAKE 2 TABLETS BY MOUTH EVERY DAY 2 MG - Active meloxicam 15 mg tablet take 1 tablet by oral route every day 15 MG - Active tramadol 100 mg tablet take 1 tablet by oral route every 4 - 6 hours as needed not to exceed 4 tablets per 24hrs as needed 100 MG - Active Lyrica 75 mg capsule take 1 capsule by oral route 2 times every day 75 MG - Active Lexapro 5 mg tablet take 1 tablet by oral route every day 5 MG - Active PREDNISONE (unknown strength) Not Available - Active cyclobenzaprine 5 mg tablet take 1 - 2 Tablet by oral route every bedtime as needed 5 MG - Active [place] Thyroid 30 mg tablet 1/2 tablet daily - Active nadolol 80 mg tablet take 1 tablet by oral route every day 80 MG - Active VITAMIN D3 (unknown strength) take 1 by Oral route once Not Available - Active CALCIUM (unknown strength) 333MG daily Not Available - Active Advil 200 mg tablet 6 tablets daily - Acti ve zinc 50 mg tablet take 1 Tablet by Oral route every day - Active METHOTREXATE 2.5 MG TABLET TAKE 5 TABLETS BY MOUTH EVERY WEEK 12.5 MG - No Longer Active Procedures Procedure Date Office/Outpatient Visit, Est Routine Venipuncture Rbc Sed Rate, Nonautomated Assay Of Serum Albumin Assay Of Creatinine Transferase (Ast) (Sgot) Alanine Amino (Alt) (Sgpt) CReactive Protein Complete Cbc WAuto Diff Wbc Office/Outpatient Visit, Est Routine Venipuncture Rbc Sed Rate, Nonautomated Assay Of Serum Albumin Assay Of Creatinine Transferase (Ast) (Sgot) Alanine Amino (Alt) (Sgpt) CReactive Protein Complete Cbc WAuto Diff Wbc Office/Outpatient Visit, Est Routine Venipuncture Rbc Sed Rate, Nonautomated Assay Of Serum Albumin Assay Of Creatinine Transferase (Ast) (Sgot) Alanine Amino (Alt) (Sgpt) CReactive Protein Complete Cbc WAuto Diff Wbc Office/Outpatient Visit, Est Routine Venipuncture Rbc Sed Rate, Nonautomated Assay Of Serum Albumin Assay Of Creatinine Transferase (Ast) (Sgot) Alanine Amino (Alt) (Sgpt) CReactive Protein Complete Cbc WAuto Diff Wbc Vitamin D 25 Hydroxy Office/Outpatient Visit, Est Routine Venipuncture Rbc Sed Rate, Nonautomated Assay Of Serum Albumin Assay Of Creatinine Transferase (Ast) (Sgot) Alanine Amino (Alt) (Sgpt) CReactive Protein Complete Cbc WAuto Diff Wbc Office/Outpatient Visit, Est Routine Venipuncture Rbc Sed Rate, Nonautomated Assay Of Serum Albumin Assay Of Creatinine Transferase (Ast) (Sgot) Alanine Amino (Alt) (Sgpt) CReactive Protein Complete Cbc WAuto Diff Wbc Office/Outpatient Visit, Est Routine Venipuncture Rbc Sed Rate, Nonautomated Assay Of Serum Albumin Assay Of Creatinine Transferase (Ast) (Sgot) Alanine Amino (Alt) (Sgpt) CReactive Protein Complete Cbc WAuto Diff Wbc Office/Outpatient Visit, Est Routine Venipuncture Rbc Sed Rate, Nonautomated Assay Of Serum Albumin Assay Of Creatinine Transferase (Ast) (Sgot) Alanine Amino (Alt) (Sgpt) CReactive Protein Complete Cbc WAuto Diff Wbc Office/Outpatient Visit, Est Routine Venipuncture Rbc Sed Rate, Nonautomated Assay Of Serum Albumin Assay Of Creatinine Transferase (Ast) (Sgot) Alanine Amino (Alt) (Sgpt) CReactive Protein Complete Cbc WAuto Diff Wbc Office/Outpatient Visit, Est Routine Venipuncture Rbc Sed Rate, Nonautomated Assay Of Serum Albumin Assay Of Creatinine Transferase (Ast) (Sgot) Alanine Amino (Alt) (Sgpt) CReactive Protein Complete Cbc WAuto Diff Wbc Office/Outpatient Visit, Est Routine Venipuncture Rbc Sed Rate, Nonautomated Assay Of Serum Albumin Assay Of Creatinine Transferase (Ast) (Sgot) Alanine Amino (Alt) (Sgpt) CReactive Protein Complete Cbc WAuto Diff Wbc Office/Outpatient Visit, Est Routine Venipuncture Rbc Sed Rate, Nonautomated Assay Of Serum Albumin Assay Of Creatinine Transferase (Ast) (Sgot) Alanine Amino (Alt) (Sgpt) CReactive Protein Complete Cbc WAuto Diff Wbc Office/Outpatient Visit, Est Routine Venipuncture Rbc Sed Rate, Nonautomated CReactive Protein Assay Of Serum Albumin Assay Of Creatinine Transferase (Ast) (Sgot) Alanine Amino (Alt) (Sgpt) Complete Cbc WAuto Diff Wbc Office/Outpatient Visit, Est Routine Venipuncture Rbc Sed Rate, Nonautomated Assay Of Serum Albumin Assay Of Creatinine Transferase (Ast) (Sgot) Alanine Amino (Alt) (Sgpt) CReactive Protein Complete Cbc WAuto Diff Wbc Office/Outpatient Visit, Est Routine Venipuncture Rbc Sed Rate, Nonautomated CReactive Protein Assay Of Serum Albumin Assay Of Creatinine Transferase (Ast) (Sgot) Alanine Amino (Alt) (Sgpt) Complete Cbc WAuto Diff Wbc Office/Outpatient Visit, Est Routine Venipuncture Rbc Sed Rate, Nonautomated CReactive Protein Assay Of Serum Albumin Assay Of Creatinine Transferase (Ast) (Sgot) Alanine Amino (Alt) (Sgpt) Complete Cbc WAuto Diff Wbc Office/Outpatient Visit, Est Routine Venipuncture Complete Cbc WAuto Diff Wbc Rbc Sed Rate, Nonautomated CReactive Protein Assay Of Serum Albumin Assay Of Creatinine Transferase (Ast) (Sgot) Alanine Amino (Alt) (Sgpt) Office/Outpatient Visit, Est Routine Venipuncture Specimen Handling Complete Cbc WAuto Diff Wbc Rbc Sed Rate, Nonautomated Assay Of Serum Albumin Assay Of Creatinine Transferase (Ast) (Sgot) Alanine Amino (Alt) (Sgpt) CReactive Protein Tb Test, Cell Immun Measure Office/Outpatient Visit, Est Routine Venipuncture Complete Cbc WAuto Diff Wbc Rbc Sed Rate, Nonautomated CReactive Protein Assay Of Serum Albumin Assay Of Creatinine Transferase (Ast) (Sgot) Alanine Amino (Alt) (Sgpt) Office/Outpatient Visit, Est Routine Venipuncture Complete Cbc WAuto Diff Wbc Rbc Sed Rate, Nonautomated CReactive Protein Assay Of Serum Albumin Assay Of Creatinine Transferase (Ast) (Sgot) Alanine Amino (Alt) (Sgpt) Office/Outpatient Visit, Est Routine Venipuncture Complete Cbc WAuto Diff Wbc Rbc Sed Rate, Nonautomated CReactive Protein Assay Of Serum Albumin Assay Of Creatinine Transferase (Ast) (Sgot) Alanine Amino (Alt) (Sgpt) Office/Outpatient Visit, Est Routine Venipuncture Complete Cbc WAuto Diff Wbc Rbc Sed Rate, Nonautomated CReactive Protein Assay Of Serum Albumin Assay Of Creatinine Transferase (Ast) (Sgot) Alanine Amino (Alt) (Sgpt) Office/Outpatient Visit, New Drain/Inject, Joint/Bursa, Intermediate Methylprednisolone 40 Mg Inj X-Ray Exam Of Foot 2v XRay Exam Of Hand 2v X-Ray Exam Of Foot 2v XRay Exam Of Hand 2v Surgical Trays Advance Directives Directive Yes / No Effective Date File Name No Information Encounters Encounter Description Practice Location Reason(s) For Visit Diagnoses Date Provider Providers Copied on Encounter [facility] , [address], [place], [address], [place] tel:[phone] [facility] , No Information 3 Kwaku Figueredo. [facility] [address], [place], [address], [place]. tel:[phone] Office/Outpa tient Visit, Est [facility] , [address], [place], [address], [place] tel:[phone] [facility] , Follow Up of Rheumatoid arthritis (chief complaint) Dry eye syndrome of bilateral lacrimal glandsRA w/ rheumatoid factor of multiple sites w/o organ involvementF ibromyalgiaN onspecific elevation of levels of transaminase and lactic acid dehydrogenas e [LDH]Other long-term (current) drug therapyLow back pain, unspecifiedP ain in left knee 2 Kwaku Figueredo. [facility] [address], [place], [address], [place]. tel:[phone] Referring Provider: Bea Ayala, [facility] [address], [place], [address]. tel:[phone] [facility] , [address], [place], [address], [place] tel:[phone] [facility] No Information 2 Kwaku Figueredo. [facility] [address], [place], [address], [place]. tel:[phone] [facility] , [address], [place], [address], [place] tel:[phone] [facility] , No Information 2 Kwaku Figueredo. [facility] [address], [place], [address], [place]. tel:[phone] Office/Outpa tient Visit, Est [facility] , [address], [place], [address], [place] tel:[phone] [facility] , Follow Up of Rheumatoid arthritis (chief complaint) Dry eye syndrome of bilateral lacrimal glandsRA w/ rheumatoid factor of multiple sites w/o organ involvementF ibromyalgiaN onspecific elevation of levels of transaminase and lactic acid dehydrogenas e [LDH]Other long-term (current) drug therapyLow back pain, unspecified 2 Kwaku Figueredo. [facility] [address], [place], [address], [place]. tel:[phone] Referring Provider: Bea Ayala, [facility] [address], [place], [address]. tel:[phone] Office/Outpa tient Visit, Est [facility] , [address], [place], [address], [place] tel:[phone] [facility] , Follow Up of Rheumatoid arthritis (chief complaint) Dry eye syndrome of bilateral lacrimal glandsRA w/ rheumatoid factor of multiple sites w/o organ involvementF ibromyalgiaN onspecific elevation of levels of transaminase and lactic acid dehydrogenas e [LDH]Other long-term (current) drug therapyLow back pain, unspecified 2 Kwaku Figueredo. [facility] [address], [place], [address], [place]. tel:[phone] Referring Provider: Bea Ayala, [facility] [address], [place], [address]. tel:[phone] Office/Outpa tient Visit, Est [facility] , [address], [place], [address], [place] tel:[phone] [facility] , Follow Up of Rheumatoid arthritis (chief complaint) RA w/ rheumatoid factor of multiple sites w/o organ involvementF ibromyalgiaN onspecific elevation of levels of transaminase and lactic acid dehydrogenas e [LDH]Other equipment operator intermodal yard (current) drug therapyDry eye syndrome of bilateral lacrimal glandsVitami n D deficiency, unspecified 1 Kwaku Figueredo. [facility] [address], [place], [address], [place]. tel:[phone] Referring Provider: Bea Ayala, [facility] [address], [place], [address]. tel:[phone] [facility] , [address], [place], [address], [place] tel:[phone] [facility] , No Information 1 Kwaku Figueredo. [facility] [address], [place], [address], [place]. tel:[phone] Office/Outpa tient Visit, Est [facility] , [address], [place], [address], [place] tel:[phone] [facility] , Follow Up of Rheumatoid arthritis (chief complaint) RA w/ rheumatoid factor of multiple sites w/o organ involvementF ibromyalgiaN onspecific elevation of levels of transaminase and lactic acid dehydrogenas e [LDH]Other long-term (current) drug therapy 1 Kwaku Figueredo. [facility] [address], [place], [address], [place]. tel:[phone] Referring Provider: Bea Ayala, [facility] [address], [place], [address]. 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 [facility] [address], [place], [address], [place]. tel:[phone] Referring Provider: Bea Ayala, [facility] [address], [place], [address]. tel:[phone] Office/Outpa tient Visit, Est [facility] , [address], [place], [address], [place] tel:[phone] [facility] , Follow Up of Rheumatoid arthritis (chief complaint) RA w/ rheumatoid factor of multiple sites w/o organ involvementF ibromyalgiaN onspecific elevation of levels of transaminase and lactic acid dehydrogenas e [LDH]Other long-term (current) drug therapyPain in right knee 0 Kwaku Figueredo. [facility] [address], [place], [address], [place]. tel:[phone] Referring Provider: Bea Ayala, [facility] [address], [place], [address]. tel:[phone] Office/Outpa tient Visit, Est [facility] , [address], [place], [address], [place] tel:[phone] [facility] , Follow Up of Rheumatoid arthritis (chief complaint) RA w/ rheumatoid factor of multiple sites w/o organ involvementF ibromyalgiaN onspecific elevation of levels of transaminase and lactic acid dehydrogenas e [LDH]Other long-term (current) drug therapy 0 Kwaku Figueredo. [facility] [address], [place], [address], [place]. tel:[phone] Referring Provider: Bea Ayala, [facility] [address], [place], [address]. tel:[phone] Office/Outpa tient Visit, Est [facility] , [address], [place], [address], [place] tel:[phone] [facility] , Follow Up of Rheumatoid arthritis (chief complaint) RA w/ rheumatoid factor of multiple sites w/o organ involvementF ibromyalgiaN onspecific elevation of levels of transaminase and lactic acid dehydrogenas e [LDH]Other long-term (current) drug therapyTenni s elbow of right elbow Mar-0 4-202 0 Kwaku Figueredo. [facility] [address], [place], [address], [place]. tel:[phone] Referring Provider: Bea Ayala, [facility] [address], [place], [address]. tel:[phone] Office/Outpa tient Visit, Est [facility] , [address], [place], [address], [place] tel:[phone] [facility] , Follow Up of Rheumatoid arthritis (chief complaint) RA w/ rheumatoid factor of multiple sites w/o organ involvementF ibromyalgiaN onspecific elevation of levels of transaminase and lactic acid dehydrogenas e [LDH]Other long-term (current) drug therapyTenni s elbow of right elbow Dec-0 5-201 9 Kwaku Figueredo. [facility] [address], [place], [address], [place]. tel:[phone] Referring Provider: Bea Ayala, [facility] [address], [place], [address]. tel:[phone] Office/Outpa tient Visit, Est [facility] , [address], [place], [address], [place] tel:[phone] [facility] , Follow Up of Rheumatoid arthritis (chief complaint) RA w/ rheumatoid factor of multiple sites w/o organ involvementF ibromyalgiaN onspecific elevation of levels of transaminase and lactic acid dehydrogenas e [LDH]Other long-term (current) drug therapy 0 9 Kwaku Figueredo. [facility] [address], [place], [address], [place]. tel:[phone] Referring Provider: Bea Ayala, [facility] [address], [place], [address]. 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 [facility] [address], [place], [address], [place]. tel:[phone] Referring Provider: Bea Ayala, [facility] [address], [place], [address]. tel:[phone] Office/Outpa tient Visit, Est [facility] , [address], [place], [address], [place] tel:[phone] [facility] , Follow Up of Rheumatoid arthritis (chief complaint) RA w/ rheumatoid factor of multiple sites w/o organ involvementM edial epicondyliti s, right elbowFibromy algiaNonspec ific elevation of levels of transaminase and lactic acid dehydrogenas e [LDH]Other long-term (current) drug therapy Kwaku Bea. [facility] [address], [place], [address], [place]. tel:[phone] Referring Provider: Bea Ayala, [facility] [address], [place], [address]. tel:[phone] Office/Outpa tient Visit, Est [facility] , [address], [place], [address], [place] tel:[phone] [facility] , Follow Up of Rheumatoid arthritis (chief complaint) RA w/ rheumatoid factor of multiple sites w/o organ involvementF ibromyalgiaN onspecific elevation of levels of transaminase and lactic acid dehydrogenas e [LDH]Other equipment operator intermodal yard (current) drug therapyMedia l epicondyliti s, right elbow Ames Bea. [facility] [address], [place], [address], [place]. tel:[phone] Referring Provider: Bea Ayala, [facility] [address], [place], [address]. tel:[phone] Office/Outpa tient Visit, Est [facility] , [address], [place], [address], [place] tel:[phone] [facility] , Follow Up of Rheumatoid arthritis (chief complaint) RA w/ rheumatoid factor of multiple sites w/o organ involvementF ibromyalgiaN onspecific elevation of levels of transaminase and lactic acid dehydrogenas e [LDH]Other long-term (current) drug therapy 8 Kwaku Figueredo. [facility] [address], [place], [address], [place]. tel:[phone] Referring Provider: Bea Ayala, [facility] [address], [place], [address]. tel:[phone] Office/Outpa tient Visit, Est [facility] , [address], [place], [address], [place] tel:[phone] [facility] , Follow Up of Rheumatoid arthritis (chief complaint) RA w/ rheumatoid factor of multiple sites w/o organ involvementN onspecific elevation of levels of transaminase and lactic acid dehydrogenas e [LDH]Other equipment operator intermodal yard (current) drug therapyFibro myalgia 8 Kwaku Figueredo. [facility] [address], [place], [address], [place]. tel:[phone] Referring Provider: Bea Ayala, [facility] [address], [place], [address]. tel:[phone] Office/Outpa tient Visit, Est [facility] , [address], [place], [address], [place] tel:[phone] [facility] , Follow Up of Rheumatoid arthritis (chief complaint) RA w/ rheumatoid factor of multiple sites w/o organ involvementN onspecific elevation of levels of transaminase and lactic acid dehydrogenas e [LDH]Other long-term (current) drug therapyHeada jesus 8 Kwaku Figueredo. [facility] [address], [place], [address], [place]. tel:[phone] Referring Provider: Bea Ayala, [facility] [address], [place], [address]. tel:[phone] Office/Outpa tient Visit, Est [facility] , [address], [place], [address], [place] tel:[phone] [facility] , Follow Up of Rheumatoid arthritis (chief complaint) RA w/ rheumatoid factor of multiple sites w/o organ involvementN onspecific elevation of levels of transaminase and lactic acid dehydrogenas e [LDH]Other long-term (current) drug therapy 7 Kwaku Figueredo. [facility] [address], [place], [address], [place]. tel:[phone] Referring Provider: Bea Ayala, [facility] [address], [place], [address]. tel:[phone] [facility] , [address], [place], [address], [place] tel:[phone] [facility] , No Information 7 Kwaku Figueredo. [facility] [address], [place], [address], [place]. tel:[phone] Office/Outpa tient Visit, Est [facility] , [address], [place], [address], [place] tel:[phone] [facility] , Follow Up of Rheumatoid arthritis (chief complaint) RA w/ rheumatoid factor of multiple sites w/o organ involvementN onspecific elevation of levels of transaminase and lactic acid dehydrogenas e [LDH]Other long-term (current) drug therapy 7 Kwaku Figueredo. [facility] [address], [place], [address], [place]. tel:[phone] Referring Provider: Bea Ayala, [facility] [address], [place], [address]. tel:[phone] Office/Outpa tient Visit, Est [facility] , [address], [place], [address], [place] tel:[phone] [facility] , Follow Up of Rheumatoid arthritis (chief complaint) RA w/ rheumatoid factor of multiple sites w/o organ involvementN onspecific elevation of levels of transaminase and lactic acid dehydrogenas e [LDH]Other long-term (current) drug therapy Kwaku Figueredo. [facility] [address], [place], [address], [place]. tel:[phone] Referring Provider: Bea Ayala, [facility] [address], [place], [address]. tel:[phone] Office/Outpa tient Visit, Est [facility] , [address], [place], [address], [place] tel:[phone] [facility] , Follow Up of Rheumatoid arthritis (chief complaint) RA w/ rheumatoid factor of multiple sites w/o organ involvementO ther equipment operator intermodal yard (current) drug therapyNonsp ecific elevation of levels of transaminase and lactic acid dehydrogenas e [LDH] Kwaku Figueredo. [facility] [address], [place], [address], [place]. tel:[phone] Referring Provider: Bea Ayala, [facility] [address], [place], [address]. tel:[phone] Office/Outpa tient Visit, [facility] , [address], [place], [address], [place] tel:[phone] [facility] , Follow Up of Rheumatoid arthritis (chief complaint) RA w/ rheumatoid factor of multiple sites w/o organ involvementO ther specified RA of wristOther long-term (current) drug therapyRash and other nonspecific skin eruption Kwaku Figueredo. [facility] [address], [place], [address], [place]. tel:[phone] Referring Provider: Bea Ayala, [facility] [address], [place], [address]. tel:[phone] Office/Outpa tient Visit, [facility] , [address], [place], [address], [place] tel:[phone] [facility] , Joint Pain (chief complaint) RA w/ rheumatoid factor of multiple sites w/o organ involvementO ther equipment operator intermodal yard (current) drug therapyOther specified RA of wrist Amesesteban Fariaen. [facility] [address], [place], [address], [place]. tel:[phone] Referring Provider: Bea Ayala, [facility] [address], [place], [address]. tel:[phone] [facility] , [address], [place], [address], [place] tel:[phone] [facility] , No Information 6 Ames Bea. [facility] [address], [place], [address], [place]. tel:[phone] Family History Family Member Type Diagnosis Age At Onset Mother Problem (finding) Thyroid disorder Paternal grandmother Problem (finding) rheumatoid arth ritis Immunizations Vaccine Date Status Comments COVID-19 Pfizer administered Source: [facility] Unspecified COVID-19 Pfizer administered Source: [facility] Unspecified COVID-19 Pfizer administered Source: [facility] ce Unspecified Payers Payer name Insurance type Covered libertarian ID Authoriza tion[id number] Social History Type Description Quantity Date Captured Comments Sex Female Smoking Status No Information Chief Complaint And Reason For Visit No Information Reason For Referral Reason For Referral No Information Plan Of Treatment Date Type Action Status Referral Ordered: X-Ray Exam Of Foot 2v ordered Referral Ordered: XRay Exam Of Hand 2v ordered Appointment Sujata Russell BOOKED History Of Present Illness Encounter Date Complaint History Of Prese nt Illness Follow Up of Rheumatoid arthriti s Follow Up of Rheumatoid arthriti s Follow Up of Rheumatoid arthriti s Follow Up of Rheumatoid arthriti s Follow Up of Rheumatoid arthriti s Follow Up of Rheumatoid arthriti s Follow Up of Rheumatoid arthriti s Follow Up of Rheumatoid arthriti s Follow Up of Rheumatoid arthriti s Follow Up of Rheumatoid arthriti s Follow Up of Rheumatoid arthriti s Follow Up of Rheumatoid arthriti s Follow Up of Rheumatoid arthriti s Follow Up of Rheumatoid arthriti s Follow Up of Rheumatoid arthriti s Follow Up of Rheumatoid arthriti s Follow Up of Rheumatoid arthriti s Follow Up of Rheumatoid arthriti s Follow Up of Rheumatoid arthriti s Follow Up of Rheumatoid arthriti s Follow Up of Rheumatoid arthriti s Follow Up of Rheumatoid arthriti s Joint Pain Functional Status Date Functional Assessmen t No Information Instructions Date Instruction Additional Infor mation No Information Assessments Type Assessment Date No Information Patient Care Teams Name Effective Dates (start - stop) Status Members No Information
--- NOTE | 2023-06-02 08:15 | CRLHL7_ITS ---
For Patients: As a result of the Century Cures Act, medical imaging exams and procedure reports are released immediately into your electronic medical record. You may view this report before your referring provider. If you have questions, please contact your health care provider. BILATERAL SCREENING MAMMOGRAM WITH COMPUTER-AIDED DETECTION AND TOMOSYNTHESIS TECHNIQUE: CC and MLO views were obtained. These mammographic images have been obtained using full-field digital technique. These mammographic images were interpreted with the benefit of computer-aided detection. Breast tomosynthesis was used in this interpretation. COMPARISON FILM: 02/12/22, 06/07/20, 11/08/17. FINDINGS: There are scattered areas of fibroglandular density. IMPRESSION: There is no radiographic evidence for malignancy. ASSESSMENT: BI-RADS Category 1: Negative RECOMMENDATION: Routine screening mammogram in 1 year. A lay language report of this examination will be provided to the patient. EMMANUEL PLEITEZ M.D. Diagnostic Radiologist [email or web address] JOSÉ MIGUEL/serge Transcribed: 06/02/2023, 5:[address]/Dictated by: Emmanuel Pleitez MD @ 06/02/2023 12:08:00 PM (Electronically Signed)
== END 2023-06-02 08:01 | disposition home or self-care (01) ==
LOC: MAMMO 08:01
PROVIDERS: PCP Family Medicine; Visit Provider Family Medicine
DX: Z12.31 Encounter for screening mammogram for malignant neoplasm of breast (principal)
CPT/HCPCS: 77063; 77067

== ENCOUNTER 2023-06-29 08:04 | Outpatient (CLI) | payer BC, SELFPAY ==
--- OUTSIDE RECORDS SUMMARY | 2023-06-30 14:28 | XMS_ITS | Continuity of Care Document ---
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 Role Phone Bea Ames MD Unavailable Unavailable Allergies, Adverse Reactions, Alerts Substance Reaction Status Criticality HYDROXYCHLOROQUINE SULFATE Pruritic rash Active No Information Medications Medication Instructions Dosage Effective Dates (start - stop) Status Comments methotrexate sodium 2.5 mg tablet take 5 Tablet by Oral route every week 12.5 MG - Active 30 day supply until seen FOLIC ACID 1 MG TABLET TAKE 2 [...] bedtime as needed 5 MG - Active [place] Thyroid 30 mg tablet 1/2 tablet daily [...] by Oral route every day - Active methotrexate sodium 2.5 mg tablet take 5 Tablet by Oral route every week 12.5 MG - No Longer Active Procedures [facility] , [address], [place], [address], [place] tel:[phone] [facility] , No Information 3 Kwaku Figueredo. [facility] [address], [place], [address], [place]. tel:[phone] [facility] , [address], [place], [address], [place] tel:[phone] [facility] , No Information 3 Kwaku Figueredo. [facility] [address], [place], [address], [place]. tel:[phone] Office/Outpa tient Visit, Est [facility] , [address], [place], [address], [place] tel:[phone] [facility] , Follow Up of Rheumatoid arthritis (chief complaint) Dry eye syndrome of bilateral lacrimal glandsRA w/ rheumatoid factor of multiple sites w/o organ involvementF ibromyalgiaN onspecific elevation of levels of transaminase and lactic acid dehydrogenas e [LDH]Other brake lining driller (current) drug therapyLow back pain, unspecifiedP ain in left knee 2 Kwaku Figueredo. [facility] [address], [place], [address], [place]. tel:[phone] Referring Provider: Bea Ayala, [facility] [address], [place], [address]. tel:[phone] [facility] , [address], [place], [address], [place] tel:[phone] [facility] No Information 2 Kwaku Figueredo. [facility] [address], [place], [address], [place]. tel:[phone] Office/Outpa tient Visit, Est [facility] , [address], [place], [address], [place] tel:[phone] [facility] , Follow Up of Rheumatoid arthritis (chief complaint) Dry eye syndrome of bilateral lacrimal glandsRA w/ rheumatoid factor of multiple sites w/o organ involvementF ibromyalgiaN onspecific elevation of levels of transaminase and lactic acid dehydrogenas e [LDH][facility] ([facility] drug therapyLow back pain, unspecified 2 Kwaku Figueredo. [facility] [address], [place], [address], [place]. tel:[phone] Referring Provider: Bea Ayala, [facility] [address], [place], [address]. tel:[phone] Office/Outpa tient Visit, Est [facility] , [address], [place], [address], [place] tel:[phone] [facility] , Follow Up of Rheumatoid arthritis (chief complaint) Dry eye syndrome of bilateral lacrimal glandsRA w/ rheumatoid factor of multiple sites w/o organ involvementF ibromyalgiaN onspecific elevation of levels of transaminase and lactic acid dehydrogenas e [LDH][facility] [place] ([facility]) drug therapyLow back pain, unspecified 2 Kwaku Figueredo. [facility] [address], [place], [address], [place]. tel:[phone] Referring Provider: Bea Ayala, [facility] [address], [place], [address]. tel:[phone] Office/Outpa tient Visit, Est [facility] , [address], [place], [address], [place] tel:[phone] [facility] , Follow Up of Rheumatoid arthritis (chief complaint) RA w/ rheumatoid factor of multiple sites w/o organ involvementF ibromyalgiaN onspecific elevation of levels of transaminase and lactic acid dehydrogenas e [LDH]Other brake lining driller (current) drug therapyDry eye syndrome of bilateral lacrimal glandsVitami n D deficiency, unspecified 1 Kwaku Figueredo. [facility] [address], [place], [address], [place]. tel:[phone] Referring Provider: Bea Ayala, [facility] [address], [place], [address]. tel:[phone] [facility] , [address], [place], [address], [place] tel:[phone] [facility] , No Information 1 Ames Bea. [facility] [address], [place], [address], [place]. tel:[phone] Office/Outpa tient Visit, Est [facility] , [address], [place], [address], [place] tel:[phone] [facility] , Follow Up of Rheumatoid arthritis (chief complaint) RA w/ rheumatoid factor of multiple sites w/o organ involvementF ibromyalgiaN onspecific elevation of levels of transaminase and lactic acid dehydrogenas e [LDH][facility] drug therapy 1 Kwaku Figueredo. [facility] [address], [place], [address], [place]. tel:[phone] Referring Provider: Bea Ayala, [facility] [address], [place], [address]. tel:[phone] Office/Outpa tient Visit, Est [facility] , [address], [place], [address], [place] tel:[phone] [facility] , Follow Up of Rheumatoid arthritis (chief complaint) RA w/ rheumatoid factor of multiple sites w/o organ involvementF ibromyalgiaN onspecific elevation of levels of transaminase and lactic acid dehydrogenas e [LDH][facility] drug therapy 1 Kwaku Figueredo. [facility] [address], [place], [address], [place]. tel:[phone] Referring Provider: Bea Ayala, [facility] [address], [place], [address]. tel:[phone] Office/Outpa tient Visit, Est [facility] , [address], [place], [address], [place] tel:[phone] [facility] , Follow Up of Rheumatoid arthritis (chief complaint) RA w/ rheumatoid factor of multiple sites w/o organ involvementF ibromyalgiaN onspecific elevation of levels of transaminase and lactic acid dehydrogenas e [LDH][facility] ([facility] drug therapyPain in right knee 0 Kwaku Figueredo. [facility] [address], [place], [address], [place]. tel:[phone] Referring Provider: Bea Ayala, [facility] [address], [place], [address]. tel:[phone] Office/Outpa tient Visit, Est [facility] , [address], [place], [address], [place] tel:[phone] [facility] , Follow Up of Rheumatoid arthritis (chief complaint) RA w/ rheumatoid factor of multiple sites w/o organ involvementF ibromyalgiaN onspecific elevation of levels of transaminase and lactic acid dehydrogenas e [LDH][facility] drug therapy 0 Kwaku Figueredo. [facility] [address], [place], [address], [place]. tel:[phone] Referring Provider: Bea Ayala, [facility] [address], [place], [address]. tel:[phone] Office/Outpa tient Visit, Est [facility] , [address], [place], [address], [place] tel:[phone] [facility] , Follow Up of Rheumatoid arthritis (chief complaint) RA w/ rheumatoid factor of multiple sites w/o organ involvementF ibromyalgiaN onspecific elevation of levels of transaminase and lactic acid dehydrogenas e [LDH][facility] (current[facility] drug therapyTenni s elbow of right elbow Mar-0 4-202 0 Kwaku Figueredo. [facility] [address], [place], [address], [place]. tel:[phone] Referring Provider: Bea Ayala, [facility] [address], [place], [address]. tel:[phone] Office/Outpa tient Visit, Est [facility] , [address], [place], [address], [place] tel:[phone] [facility] , Follow Up of Rheumatoid arthritis (chief complaint) RA w/ rheumatoid factor of multiple sites w/o organ involvementF ibromyalgiaN onspecific elevation of levels of transaminase and lactic acid dehydrogenas e [LDH][facility] (current[place] drug therapyTenni s elbow of right elbow Dec-0 5-201 9 Kwaku Figueredo. [facility] [address], [place], [address], [place]. tel:[phone] Referring Provider: Bea Ayala, [facility] [address], [place], [address]. tel:[phone] Office/Outpa tient Visit, Est [facility] , [address], [place], [address], [place] tel:[phone] [facility] , Follow Up of Rheumatoid arthritis (chief complaint) RA w/ rheumatoid factor of multiple sites w/o organ involvementF ibromyalgiaN onspecific elevation of levels of transaminase and lactic acid dehydrogenas e [LDH][facility] drug therapy Jul-0 9 Kwaku Figueredo. [facility] [address], [place], [address], [place]. tel:[phone] Referring Provider: Bea Ayala, [facility] [address], [place], [address]. tel:[phone] Office/Outpa tient Visit, Est [facility] , [address], [place], [address], [place] tel:[phone] [facility] , Follow Up of Rheumatoid arthritis (chief complaint) RA w/ rheumatoid factor of multiple sites w/o organ involvementF ibromyalgiaN onspecific elevation of levels of transaminase and lactic acid dehydrogenas e [LDH]Other brake lining dr[facility] (current) drug therapy 9 Kwaku Figueredo. [facility] [address], [place], [address], [place]. tel:[phone] Referring Provider: Bea Ayala, [facility] [address], [place], [address]. tel:[phone] Office/Outpa tient Visit, Est [facility] , [address], [place], [address], [place] tel:[phone] [facility] , Follow Up of Rheumatoid arthritis (chief complaint) RA w/ rheumatoid factor of multiple sites w/o organ involvementM edial epicondyliti s, right elbowFibromy algiaNonspec ific elevation of levels of transaminase and lactic acid dehydrogenas e [LDH]Other brake lining dr[facility] (current) drug therapy 9 Kwaku Figueredo. [facility] [address], [place], [address], [place]. tel:[phone] Referring Provider: Bea Ayala, [facility] [address], [place], [address]. tel:[phone] Office/Outpa tient Visit, Est [facility] , [address], [place], [address], [place] tel:[phone] [facility] , Follow Up of Rheumatoid arthritis (chief complaint) RA w/ rheumatoid factor of multiple sites w/o organ involvementF ibromyalgiaN onspecific elevation of levels of transaminase and lactic acid dehydrogenas e [LDH]Other brake lining dr[facility] (current) drug therapyMedia l epicondyliti s, right elbow Kwaku Fariaen. [facility] [address], [place], [address], [place]. tel:[phone] Referring Provider: Bea Ayala, [facility] [address], [place], [address]. 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 [facility] [address], [place], [address], [place]. tel:[phone] Referring Provider: Bea Ayala, [facility] [address], [place], [address]. tel:[phone] Office/Outpa tient Visit, Est [facility] , [address], [place], [address], [place] tel:[phone] [facility] , Follow Up of Rheumatoid arthritis (chief complaint) RA w/ rheumatoid factor of multiple sites w/o organ involvementN onspecific elevation of levels of transaminase and lactic acid dehydrogenas e [LDH]Other brake lining driller (current) drug therapyFibro myalgia 8 Kwaku Figueredo. [facility] [address], [place], [address], [place]. tel:[phone] Referring Provider: Bea Ayala, [facility] [address], [place], [address]. tel:[phone] Office/Outpa tient Visit, Est [facility] , [address], [place], [address], [place] tel:[phone] [facility] , Follow Up of Rheumatoid arthritis (chief complaint) RA w/ rheumatoid factor of multiple sites w/o organ involvementN onspecific elevation of levels of transaminase and lactic acid dehydrogenas e [LDH]Other brake lining driller (current) drug therapyHeada jesus 8 Kwaku Figueredo. [facility] [address], [place], [address], [place]. tel:[phone] Referring Provider: Bea Ayala, [facility] [address], [place], [address]. 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 [facility] [address], [place], [address], [place]. tel:[phone] Referring Provider: Bea Ayala, [facility] [address], [place], [address]. tel:[phone] [facility] , [address], [place], [address], [place] tel:[phone] [facility] , No Information 7 Kwaku Figueredo. [facility] [address], [place], [address], [place]. tel:[phone] Office/Outpa tient Visit, Est [facility] , [address], [place], [address], [place] tel:[phone] [facility] , Follow Up of Rheumatoid arthritis (chief complaint) RA w/ rheumatoid factor of multiple sites w/o organ involvementN onspecific elevation of levels of transaminase and lactic acid dehydrogenas e [LDH][facility] drug therapy 7 Kwaku Figueredo. [facility] [address], [place], [address], [place]. tel:[phone] Referring Provider: Bea Ayala, [facility] [address], [place], [address]. tel:[phone] Office/Outpa tient Visit, Est [facility] , [address], [place], [address], [place] tel:[phone] [facility] , Follow Up of Rheumatoid arthritis (chief complaint) RA w/ rheumatoid factor of multiple sites w/o organ involvementN onspecific elevation of levels of transaminase and lactic acid dehydrogenas e [LDH][facility] drug therapy Kwaku Figueredo. [facility] [address], [place], [address], [place]. tel:[phone] Referring Provider: Bea Ayala, [facility] [address], [place], [address]. tel:[phone] Office/Outpa tient Visit, Est [facility] , [address], [place], [address], [place] tel:[phone] [facility] , Follow Up of Rheumatoid arthritis (chief complaint) RA w/ rheumatoid factor of multiple sites w/o organ involvementO [facility]r [facility] ([facility] drug therapyNonsp ecific elevation of levels of transaminase and lactic acid dehydrogenas e [LDH] Kwaku Figueredo. [facility] [address], [place], [address], [place]. tel:[phone] Referring Provider: Bea Aayla, [facility] [address], [place], [address]. tel:[phone] Office/Outpa tient Visit, Est [facility] , [address], [place], [address], [place] tel:[phone] [facility] , Follow Up of Rheumatoid arthritis (chief complaint) RA w/ rheumatoid factor of multiple sites w/o organ involvementO ther specified RA of wristOther brake lining driller (current) drug therapyRash and other nonspecific skin eruption 7 Kwaku Figueredo. [facility] [address], [place], [address], [place]. tel:[phone] Referring Provider: Bea Ayala, [facility] [address], [place], [address]. tel:[phone] Office/Outpa tient Visit, New [facility] , [address], [place], [address], [place] tel:[phone] [facility] , Joint Pain (chief complaint) RA w/ rheumatoid factor of multiple sites w/o organ involvementO ther brake lining driller (current) drug therapyOther specified RA of wrist 6 Ames Bea. [facility] [address], [place], [address], [place]. tel:[phone] Referring Provider: Bea Ayala, [facility] [address], [place], [address]. tel:[phone] [facility] , [address], [place], [address], [place] tel:[phone] [facility] , No Information 6 Kwaku Bea. [facility] [address], [place], [address], [place]. tel:[phone] Family History Family Member Type Diagnosis Age At Onset Mother Problem (finding) Thyroid disorder Paternal grandmother Problem (finding) rheumatoid arth ritis Immunizations Vaccine Date Status Comments COVID-19 Pfizer administered Source: [facility]our ce Unspecified COVID-19 Pfizer administered Source: [facility] Unspecified COVID-19 Pfizer administered Source: Sour ce Unspecified Payers Payer name Insurance type Covered green party ID Authoriza tion(s) [facility] [id number] Social History Type Description Quantity Date Captured [...]
--- OUTSIDE RECORDS SUMMARY | 2023-06-30 14:28 | XMS_ITS | Continuity of Care Document ---
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 [facility], [address] [place] [address], [id number] , [place]. tel:[phone] Referring Provider: Orion Pham [address], [address]. tel:[phone] Office/Outpat ient Visit,Est, Mod [facility], [address], [place], [place], [id number], [place] tel:[phone] [facility] Encounter for other specified surgical aftercare 2 Mehbod Amir. [facility], [address] [place] [address], [id number] , [place]. tel:[phone] Referring Provider: Orion Pham [address], [address]. tel:[phone] [facility], [address], [place], [id number], [place] tel:[phone] [facility] Encounter for other specified surgical aftercare 2 Mehbod Amir. [facility], [address], [place], [place], [id number] , [place]. tel:[phone] Referring Provider: Orion Pham [address], [address]. tel:[phone] [facility], [address], [place], [id number], [place] tel:[phone] [facility] No Information 2 Kavitha Angeles. [address] [place] [address] [address], [place], [place], [id number] , [place]. [phone] Referring Provider: Orion Pham [address], [address]. tel:[phone] [facility], [address], [place], [id number], [place] tel:[phone] [facility] No Information 2 Mehbod Amir. [facility], [address], [place], [place], [id number] , [place]. tel:[phone] Referring Provider: Orion Pham [address], [address]. tel:[phone] Office/Outpat ient Visit,[facility], [address], [place], [id number], [place] tel:[phone] [facility] No Information 2 Mehbod Amir. [facility], [address], [place], [place], [id number] , [place]. tel:[phone] Referring Provider: Orion Pham [address], [address]. tel:[phone] [facility], [address], [place], [id number], [place] tel:[phone] [facility] No Information 2 Gray Elizabeth [facility], [address] [place] [address] [address], [place], [place], [id number] , [place]. tel:[phone] Family History Family Member Type Diagnosis Age At Onset No Information Payers Payer name Insurance type Covered alliance party ID [place] sig[place] [id number] [place] [id number] Social History Type Description Quantity Date Captured [...] For Referral Reason For Referral No Information History Of Present Illness Encounter Date Complaint History Of Prese nt Illness No Information Functional Status Date Functional Assessmen t No Information Instructions Date Instruction Additional Infor mation No Information Assessments Type Assessment Date assessment Arthrodesis status Patient Care Teams Name Effective Dates (start - stop) Status Members No Information
== END 2023-06-29 08:05 | disposition home or self-care (01) ==
LOC: NFLDREF 06-30 14:26
PROVIDERS: PCP Family Medicine; Referring Provider Family Medicine; Visit Provider Family Medicine
DX: E78.5 Hyperlipidemia, unspecified (principal); E03.9 Hypothyroidism, unspecified
CPT/HCPCS: 80053; 80061; 84443

== ENCOUNTER 2024-06-07 11:14 | Outpatient (CLI) | payer BC, SELFPAY ==
--- OUTSIDE RECORDS SUMMARY | 2024-06-07 11:17 | XMS_ITS | Clinical Summary ---
Author Organization [facility] Address [place], [place] [address] Care Team Providers Care Program Director Cable Television Name Role Phone Mercedez Church MD Primary Care Provider + Allergies Active Allergy Reactions Criticality Noted Date Comments Hydroxychloroquine Rash Low 12/18/2021 Venom-Honey Bee Hives High 12/18/2021 Medications Medication Sig Dispensed Refills Start Date End Date Status calcium carbonate-vitamin D3, 600 mg-125 unit, tablet Take 1 Tablet by mouth once daily. Active zinc gluconate 50 mg tablet Take 50 mg by mouth once daily. Active cholecalciferol (VITAMIN D3) 1,000 unit tablet Take 3,000 units by mouth once daily. Active thyroid (ARMOUR THYROID) 30 mg tablet Take 30 mg by mouth once daily. 04/17/2021 Active folic acid 1 mg tablet Take 1 mg by mouth once daily. Active EPINEPHrine (AUVI-Q) 0.15 mg/0.15 mL atIn auto-injector Inject 0.15 mg intramuscular each time if needed for Anaphylaxis or Allergic Reaction. 04/18/2020 Active escitalopram oxalate (LEXAPRO) 10 mg tablet Take 10 mg by mouth once daily. 12/27/2021 Active methotrexate (RHEUMATREX) 2.5 mg tablet Take 12.5 mg by mouth every Wednesday. Active nadoloL (CORGARD) 80 mg tablet Take 80-120 mg by mouth once daily. 12/24/2021 Active pregabalin (LYRICA) 75 mg capsule Take 75 mg by mouth once daily. 04/17/2021 Active rizatriptan (MAXALT) 10 mg tablet Take 10 mg by mouth 2 times daily if needed for Migraine. 04/17/2021 Active cycloSPORINE 0.05 % drop Place 1 Drop into the eye(s) twice daily 12 hours apart. Active magnesium citrate 100 mg tab Take 100 mg by mouth once daily. Active acetaminophen (TYLENOL EXTRA STRGTH) 500 mg tabletIndications:A cute post-operative pain Take 2 Tablets (1,000 mg) by mouth every 6 hours if needed for Pain. Max acetaminophen dose: 4000mg in 24 hrs. 0 07/02/2022 Active Active Problems Problem Noted Date Diagnosed Date Anxiety disorder 06/30/2022 Essential tremor 06/30/2022 Fibromyalgia 06/30/2022 Hypothyroidism 06/30/2022 Migraine 06/30/2022 Rheumatoid arthritis with rh eumatoid factor of multiple sites without organ or systems involvement 06/30/2022 S/P lumbar fusion 06/30/2022 Social History Tobacco Use Types Packs/Day Years Used Date Smoking Tobacco: Never Smokeless Tobacco: Never Tobacco Cessation:Counseling Given: Yes Alcohol Use Standard Drinks/Week Comments Yes 0 (1 standard drink = 0.6 oz pur e alcohol) rare Social Connections Answer Date Recorded Frequency of Communication with Friends and Fami ly Not on file 01/22/2022 Sex and Gender Information Value Date Recorded Sex Assigned at Not on file Gender Identity Not on file Sexual Orientation Not on file Obstetrics History Last Filed Vital Signs Vital Sign Reading Time Taken Comments Blood Pressure 111/77 09/24/2022 2:27 PM CDT Pulse 49 09/24/2022 2:27 PM CDT Temperature 36.7 ??C (98.1 ??F) 09/24/2022 2:27 PM CD T Respiratory Rate 16 07/02/2022 7:33 AM CDT Oxygen Saturation 98% 09/24/2022 2:27 PM CDT Inhaled Oxygen Concentration - - Weight 80 kg (176 lb 6.4 oz) 09/24/2022 2:27 PM CDT shoes on Height 170.2 cm (5' 7) 06/30/2022 8:02 AM CDT Body Mass Index 27.63 06/30/2022 8:02 AM CDT Plan of Treatment Health Maintenance Due Date Last Done Comments Tdap 1976 Depression screening for age 12+ 1977 HIV for age 15-65 1980 BMI (ht and wt on same day) for age 18+ 1983 Hepatitis C screening for age 18-79 1983 Zoster (shingles) series for age 50+ (1 of 2) 1984 Tetanus booster 1985 Colonoscopy through age 75 2010 Lipids for age 45-75 2010 Mammogram for age 45-75 2010 COVID-19 vaccine series (2022- season) 2023 09/10/2022, 05/12/2022, 07/16/2021 Influenza for age 50-64 07/23/2024 Pap test for age 21-65 07/02/2026 , 07/02/2023, 08/20/2017, Additional history exists Pneumococcal series for age 6-64 Aged Out No longer eligible based on patient's age to complete this topic Medical Devices Implanted Type Area Hand Buffer Device Identifier Shelf Expiration Date Model / Serial / Lot [id number] 1-4mm 60cc Medtronic Fine Canclls Freeze Dried Implanted:Qty: 1 on 06/30/2022 by Dora Castellano MD at [employer] Explanted:at [employer] (Quantity not on file) N/A: Spine Medtronic Spine/Ortho 04/17/2026 [id number] / [id number] / Spacer Lmbr [id number] [place] Convex Stra Tlif - [id number] Implanted:Qty: 1 on 06/30/2022 by Dora Castellano MD at [employer] N/A: Spine [employer] [id number] / / [id number] Spacer Lmbr [id number] [place] Convex Stra Tlif - [id number] Implanted:Qty: 1 on 06/30/2022 by Dora Castellano MD at [employer] N/A: Spine [employer] 02/01/2030 [id number] / / [id number] Set Screw Lmbr 5.5-6mm Vitality Torque - [id number] Implanted:Qty: 6 on 06/30/2022 by Dora Castellano MD at [employer] N/A: Spine [employer] Spine [id number] 01 / / Cisco Lmbr 70x5.5mm Vitality Cvd Titnm - [id number] Implanted:Qty: 2 on 06/30/2022 by Dora Castellano MD at [employer] N/A: Spine [employer] Spine [id number] 11 / / Screw 6.5x45mm Implanted:Qty: 5 on 06/30/2022 by Dora Castellano MD at [employer] N/A: Spine [id number] / / Description:SCREW 6.5X45MM Screw 5.5x45mm Implanted:Qty: 1 on 06/30/2022 by Dora Castellano MD at [employer] N/A: Spine [id number] / / Description:SCREW 5.5X45MM [id number] e Matrix 6cc [place] Dbf Putty Dbm Implanted:Qty: 1 on 06/30/2022 by Dora Castellano MD at [employer] Explanted:at [employer] (Quantity not on file) N/A: Spine Medtronic Spine/Ortho 06/04/2024 [id number] / [id number] / Procedures Procedure Name Priority Date/Time Associated Diagnosis Comments HPV THIN PREP Routine 07/02/2023 10:49 AM CDT from Last 3 Months or Most Recently Relevant to Health Maintenance Results * HPV HIGH RISK (07/02/2023 10:49 AM CDT) TYPE 16 Negative Negative 07/06/2023 11:43 AM CDT [facility] eucl3D [facility] TYPE 18 Negative Negative 07/06/2023 11:43 AM CDT [facility] OTHER HIGH RISK TYPES Negative Negative 07/06/2023 11:43 AM CDT [facility] Other (Cervical/Vagina l) 07/02/2023 10:49 AM CDT 07/04/2023 11:06 AM CDT [facility] - 07/06/2023 11:43 AM CDT HPV types 16, 18, 31, 33, 35, 39, 45, 51, 52, 56, 58, 59, 66 and 68 DNA were undetectable or below the pre-set threshold. Methodology: Bird Len 4800 HPV Test Mercedez Church MD [facility] [address] [place] [address], from Last 3 Months or Most Recently Relevant to Health Maintenance Advance Directives * Full Code (Latest Code Status on File) Date Activated Date Inactivated Comments 06/30/2022 11:20 AM 07/02/2022 6:22 PM Question Answer Comments Code Status Discussion: Unable to Assess Preferences, Provider to review later Care Teams Program Director Cable Television Relationship Specialty Start Date End Date Mercedez Church MD [address] [place] [address] PCP - General Family Practice 01/22/22
--- OUTSIDE RECORDS SUMMARY | 2024-06-07 11:18 | XMS_ITS | Continuity of Care Document ---
Author Organization [facility] Address [address] [place] [address] Phone Care Team Providers Care Hogshead Liner Name Role Phone Dora Castellano MD Unavailable [...] Visit,Est, Low [facility], [address], [place], [place], [id number], [place] tel:[phone] [facility] Arthrodesis status 3 Mehbod Amir. [facility] [place], [address] [place] [address], [id number] , [place]. tel:[phone] Referring Provider: Orion De Leon, [place] [facility] [address] [place] [address], [address]. tel:[phone] Office/Outpat ient Visit,Est, Mod [facility], [address], [place], [place], [id number], [place] tel:[phone] [facility] Encounter for other specified surgical aftercare 2 Mehbod Amir. [facility] [place], [address] [place] [address], [id number] , [place]. tel:[phone] Referring Provider: Orion De Leon [place] [facility] [address] [place] [address], [address]. tel:[phone] [facility], [address], [facility] [place], [id number], [place] tel:[phone] [facility] Encounter for other specified surgical aftercare 2 Mehbod Amir. [facility] [place], [address], [place], [place], [id number] , [place]. tel:[phone] Referring Provider: Orion De Leon, [place] [facility], [place], [address]. tel:[phone] [facility], [address], [place], [id number], [place] tel:[phone] [facility] No Information 2 Kavitha Angeles. [address] [place] [address] [address], [place], [place], [id number] , [place]. [phone] Referring Provider: Orion De Leon [place] [facility], [place], [address]. tel:[phone] [facility], [address], [place], [place], [id number], [place] tel:[phone] [facility] No Information 2 Mehbod Amir. [facility] [place], [address], [place], [place], [id number] , [place]. tel:[phone] Referring Provider: Orion De Leon [place] [facility] [address] [place] [address], [place], [address]. tel:[phone] Office/Outpat ient Visit,[facility], [facility], [address], [place], [place], [id number], [place] tel:[phone] [facility] No Information 2 Mehbod Amir. [facility] [place], [address], [place], [place], [id number] , [place]. tel:[phone] Referring Provider: Orion De Leon [place] [facility] [address] [place] [address], [place], [address]. tel:[phone] [facility], [address], [place], [id number], [place] tel:[phone] [facility] No Information 2 Gray John. [facility], [address] [place] [address] [address], [place], [id number] , [place]. tel:[phone] Family History Family Member Type Diagnosis Age At Onset No Information Payers Payer name Insurance type Covered green party ID Marvin sigala(s) [facility] [id number] Out Of State [id number] Social History Type Description Quantity Date Captured [...]
--- OUTSIDE RECORDS SUMMARY | 2024-06-07 11:18 | XMS_ITS | Continuity of Care Document ---
Author Organization [facility] Address [address] [place] [address] Phone Care Team Providers Care Catering Cook Name Role Phone Bea Ames MD Unavailable Unavailable Allergies, Adverse Reactions, Alerts Substance Reaction Status Criticality HYDROXYCHLOROQUINE SULFATE Pruritic rash Active No Information Medications Medication Instructions Dosage Effective Dates (start - stop) Status Comments METHOTREXATE 2.5 MG TABLET TAKE 5 TABLETS BY MOUTH EVERY WEEK - Active FOLIC ACID 1 MG TABLET TAKE 2 TABLETS BY MOUTH EVERY DAY 2 MG - Active Lexapro 10 mg tablet take 1.5 tablet by oral route every day - Active Lyrica 75 mg capsule take 1 capsule by oral route 2 times every day 75 MG - Active [place]o Thyroid 30 mg tablet 1/2 tablet daily - Active nadolol 80 mg tablet take 1 tablet by oral route every day 80 MG - Active VITAMIN D3 (unknown strength) take 1 by Oral route once Not Available - Active CALCIUM (unknown strength) 333MG daily Not Available - Active Advil 200 mg tablet 6 tablets daily - Active zinc 50 mg tablet take 1 Tablet by Oral route every day - Active methotrexate sodium 2.5 mg tablet TAKE 5 TABLETS BY MOUTH EVERY WEEK - No Longer Active Procedures Procedure Date Office/Outpatient Visit, Est Routine Venipuncture Rbc Sed Rate, Automated Assay Of Serum Albumin Assay Of Creatinine Transferase (Ast) (Sgot) Alanine Amino (Alt) (Sgpt) CReactive Protein Complete Cbc WAuto Diff Wbc Office/Outpatient Visit, Est Routine Venipuncture Rbc Sed Rate, Automated Assay Of Serum Albumin Assay Of Creatinine Transferase (Ast) (Sgot) Alanine Amino (Alt) (Sgpt) CReactive Protein Complete Cbc WAuto Diff Wbc Office/Outpatient Visit, Est Routine Venipuncture Rbc Sed Rate, Automated Assay Of Serum Albumin Assay Of Creatinine [...] [address], [place], [address], [place] tel:[phone] [facility] , No Information 0 4 Kwaku Figueredo. [facility] [address], [place], [address], [place]. tel:[phone] Office/Outpa tient Visit, Est [facility] , [address], [place], [address], [place] tel:[phone] [facility] , Follow Up of Rheumatoid arthritis (chief complaint) Dry eye syndrome of bilateral lacrimal glandsRA w/ rheumatoid factor of multiple sites w/o organ involvementF ibromyalgiaO ther rn long term care (current) drug therapy 0 4 Kwaku Figueredo. [facility] [address], [place], [address], [place]. tel:[phone] Referring Provider: Bea Ayala, [facility] [address], [place], [address]. tel:[phone] Office/Outpa tient Visit, Est [facility] , [address], [place], [address], [place] tel:[phone] [facility] , Follow Up of Rheumatoid arthritis (chief complaint) Dry eye syndrome of bilateral lacrimal glandsRA w/ rheumatoid factor of multiple sites w/o organ involvementF ibromyalgiaO ther rn long term care (current) drug therapy 3 Kwaku Bea. [facility] [address], [place], [address], [place]. tel:[phone] Referring Provider: Bea Ayala, [facility] [address], [place], [address]. tel:[phone] [facility] , [address], [place], [address], [place] tel:[phone] [facility] No Information 3 Kwaku Figueredo. [facility] [address], [place], [address], [place]. tel:[phone] Office/Outpa tient Visit, Est [facility] , [address], [place], [address], [place] tel:[phone] [facility] , Follow Up of Rheumatoid arthritis (chief complaint) Dry eye syndrome of bilateral lacrimal glandsRA w/ rheumatoid factor of multiple sites w/o organ involvementF ibromyalgiaO ther rn long term care (current) drug therapy 3 Kwaku Bea. [facility] [address], [place], [address], [place]. tel:[phone] Referring Provider: Bea Ayala, [facility] [address], [place], [address]. tel:[phone] Office/Outpa tient Visit, Est [facility] , [address], [place], [address], [place] tel:[phone] [facility] , Follow Up of Rheumatoid arthritis (chief complaint) Dry eye syndrome of bilateral lacrimal glandsRA w/ rheumatoid factor of multiple sites w/o organ involvementF ibromyalgiaN onspecific elevation of levels of transaminase and lactic acid dehydrogenas e [LDH]Other rn long term care (current) drug therapyLow back pain, unspecifiedP ain in left knee 2 Kwaku Figueredo. [facility] [address], [place], [address], [place]. tel:[phone] Referring Provider: Bea Ayala, [facility] [address], [place], [address]. tel:[phone] Office/Outpa tient Visit, Est [facility] , [address], [place], [address], [place] tel:[phone] [facility] , Follow Up of Rheumatoid arthritis (chief complaint) Dry eye syndrome of bilateral lacrimal glandsRA w/ rheumatoid factor of multiple sites w/o organ involvementF ibromyalgiaN onspecific elevation of levels of transaminase and lactic acid dehydrogenas e [LDH]Other rn long term care (current) drug therapyLow back pain, unspecified 2 Kwaku Figueredo. [facility] [address], [place], [address], [place]. tel:[phone] Referring Provider: Bea Ayala, [facility] [address], [place], [address]. tel:[phone] Office/Outpa tient Visit, Est [facility] , [address], [place], [address], [place] tel:[phone] [facility] , Follow Up of Rheumatoid arthritis (chief complaint) Dry eye syndrome of bilateral lacrimal glandsRA w/ rheumatoid factor of multiple sites w/o organ involvementF ibromyalgiaN onspecific elevation of levels of transaminase and lactic acid dehydrogenas e [LDH]Other rn long term care (current) drug therapyLow back pain, unspecified Fe 2 Kwaku Figueredo. [facility] [address], [place], [address], [place]. tel:[phone] Referring Provider: Bea Ayala, [facility] [address], [place], [address]. tel:[phone] Office/Outpa tient Visit, Est [facility] , [address], [place], [address], [place] tel:[phone] [facility] , Follow Up of Rheumatoid arthritis (chief complaint) RA w/ rheumatoid factor of multiple sites w/o organ involvementF ibromyalgiaN onspecific elevation of levels of transaminase and lactic acid dehydrogenas e [LDH]Other long-term (current) drug therapyDry eye syndrome of bilateral lacrimal glandsVitami n D deficiency, unspecified 1 Kwaku Figueredo. [facility] [address], [place], [address], [place]. tel:[phone] Referring Provider: Bea Ayala, [facility] [address], [place], [address]. tel:[phone] Office/Outpa tient Visit, Est [facility] , [address], [place], [address], [place] tel:[phone] [facility] , Follow Up of Rheumatoid arthritis (chief complaint) RA w/ rheumatoid factor of multiple sites w/o organ involvementF ibromyalgiaN onspecific elevation of levels of transaminase and lactic acid dehydrogenas e [LDH]Other long-term (current) drug therapy 1 Kwaku Figueredo. [facility] [address], [place], [address], [place]. tel:[phone] Referring Provider: Bea Ayala, [facility] [address], [place], [address]. tel:[phone] Office/Outpa tient Visit, Est [facility] , [address], [place], [address], [place] tel:[phone] [facility] , Follow Up of Rheumatoid arthritis (chief complaint) RA w/ rheumatoid factor of multiple sites w/o organ involvementF ibromyalgiaN onspecific elevation of levels of transaminase and lactic acid dehydrogenas e [LDH]Other rn long term care (current) drug therapy 1 Kwaku Figueredo. [facility] [address], [place], [address], [place]. tel:[phone] Referring Provider: Bea Ayala, [facility] [address], [place], [address]. tel:[phone] Office/Outpa tient Visit, Est [facility] , [address], [place], [address], [place] tel:[phone] [facility] , Follow Up of Rheumatoid arthritis (chief complaint) RA w/ rheumatoid factor of multiple sites w/o organ involvementF ibromyalgiaN onspecific elevation of levels of transaminase and lactic acid dehydrogenas e [LDH]Other long-term (current) drug therapyPain in right knee 0 Kwaku Figueredo. [facility] [address], [place], [address], [place]. tel:[phone] Referring Provider: Bea Ayala, [facility] [address], [place], [address]. tel:[phone] Office/Outpa tient Visit, Est [facility] , [address], [place], [address], [place] tel:[phone] [facility] , Follow Up of Rheumatoid arthritis (chief complaint) RA w/ rheumatoid factor of multiple sites w/o organ involvementF ibromyalgiaN onspecific elevation of levels of transaminase and lactic acid dehydrogenas e [LDH]Other long-term (current) drug therapy Todd- 0-202 0 Kwaku Fariaen. [facility] [address], [place], [address], [place]. tel:[phone] Referring Provider: Bea Ayala, [facility] [address], [place], [address]. tel:[phone] Office/Outpa tient Visit, Est [facility] , [address], [place], [address], [place] tel:[phone] [facility] , Follow Up of Rheumatoid arthritis (chief complaint) RA w/ rheumatoid factor of multiple sites w/o organ involvementF ibromyalgiaN onspecific elevation of levels of transaminase and lactic acid dehydrogenas e [LDH]Other rn long term care (current) drug therapyTenni s elbow of right elbow Jan-0 4-202 0 Kwaku Fariaen. [facility] [address], [place], [address], [place]. tel:[phone] Referring Provider: Bea Ayala, [facility] [address], [place], [address]. tel:[phone] Office/Outpa tient Visit, Est [facility] , [address], [place], [address], [place] tel:[phone] [facility] , Follow Up of Rheumatoid arthritis (chief complaint) RA w/ rheumatoid factor of multiple sites w/o organ involvementF ibromyalgiaN onspecific elevation of levels of transaminase and lactic acid dehydrogenas e [LDH]Other rn long term care (current) drug therapyTenni s elbow of right elbow Dec-0 5-201 9 Kwaku Figueredo. [facility] [address], [place], [address], [place]. tel:[phone] Referring Provider: Bea Ayala, [facility] [address], [place], [address]. tel:[phone] Office/Outpa tient Visit, Est [facility] , [address], [place], [address], [place] tel:[phone] [facility] , Follow Up of Rheumatoid arthritis (chief complaint) RA w/ rheumatoid factor of multiple sites w/o organ involvementF ibromyalgiaN onspecific elevation of levels of transaminase and lactic acid dehydrogenas e [LDH]Other rn long term care (current) drug therapy 9 Kwaku Figueredo. [facility] [address], [place], [address], [place]. tel:[phone] Referring Provider: Bea Ayala, [facility] [address], [place], [address]. tel:[phone] Office/Outpa tient Visit, Est [facility] , [address], [place], [address], [place] tel:[phone] [facility] , Follow Up of Rheumatoid arthritis (chief complaint) RA w/ rheumatoid factor of multiple sites w/o organ involvementF ibromyalgiaN onspecific elevation of levels of transaminase and lactic acid dehydrogenas e [LDH]Other rn long term care (current) drug therapy 9 Kwaku Figueredo. [facility] [address], [place], [address], [place]. tel:[phone] Referring Provider: Bea Ayala, [facility] [address], [place], [address]. tel:[phone] Office/Outpa tient Visit, Est [facility] , [address], [place], [address], [place] tel:[phone] [facility] , Follow Up of Rheumatoid arthritis (chief complaint) RA w/ rheumatoid factor of multiple sites w/o organ involvementM edial epicondyliti s, right elbowFibromy algiaNonspec ific elevation of levels of transaminase and lactic acid dehydrogenas e [LDH]Other long-term (current) drug therapy Kwaku Figueredo. [facility] [address], [place], [address], [place]. tel:[phone] Referring Provider: Bea Ayala, [facility] [address], [place], [address]. tel:[phone] Office/Outpa tient Visit, Est [facility] , [address], [place], [address], [place] tel:[phone] [facility] , Follow Up of Rheumatoid arthritis (chief complaint) RA w/ rheumatoid factor of multiple sites w/o organ involvementF ibromyalgiaN onspecific elevation of levels of transaminase and lactic acid dehydrogenas e [LDH]Other rn long term care (current) drug therapyMedia l epicondyliti s, right elbow Kwaku Figueredo. [facility] [address], [place], [address], [place]. tel:[phone] Referring Provider: Bea Ayala, [facility] [address], [place], [address]. tel:[phone] Office/Outpa tient Visit, Est [facility] , [address], [place], [address], [place] tel:[phone] [facility] , Follow Up of Rheumatoid arthritis (chief complaint) RA w/ rheumatoid factor of multiple sites w/o organ involvementF ibromyalgiaN onspecific elevation of levels of transaminase and lactic acid dehydrogenas e [LDH]Other rn long term care (current) drug therapy 8 Kwaku Figueredo. [facility] [address], [place], [address], [place]. tel:[phone] Referring Provider: Bea Ayala, [facility] [address], [place], [address]. tel:[phone] Office/Outpa tient Visit, Est [facility] , [address], [place], [address], [place] tel:[phone] [facility] , Follow Up of Rheumatoid arthritis (chief complaint) RA w/ rheumatoid factor of multiple sites w/o organ involvementN onspecific elevation of levels of transaminase and lactic acid dehydrogenas e [LDH]Other rn long term care (current) drug therapyFibro myalgia 8 Kwaku Figueredo. [facility] [address], [place], [address], [place]. tel:[phone] Referring Provider: Bea Ayala, [facility] [address], [place], [address]. tel:[phone] Office/Outpa tient Visit, Est [facility] , [address], [place], [address], [place] tel:[phone] [facility] , Follow Up of Rheumatoid arthritis (chief complaint) RA w/ rheumatoid factor of multiple sites w/o organ involvementN onspecific elevation of levels of transaminase and lactic acid dehydrogenas e [LDH]Other rn long term care (current) drug therapyHeada jesus 8 Kwaku Figueredo. [facility] [address], [place], [address], [place]. tel:[phone] Referring Provider: Bea Ayala, [facility] [address], [place], [address]. tel:[phone] Office/Outpa tient Visit, Est [facility] , [address], [place], [address], [place] tel:[phone] [facility] , Follow Up of Rheumatoid arthritis (chief complaint) RA w/ rheumatoid factor of multiple sites w/o organ involvementN onspecific elevation of levels of transaminase and lactic acid dehydrogenas e [LDH]Other rn long term care (current) drug therapy 7 Kwaku Figueredo. [facility] [address], [place], [address], [place]. tel:[phone] Referring Provider: Bea Ayala, [facility] [address], [place], [address]. tel:[phone] [facility] , [address], [place], [address], [place] tel:[phone] [facility] , No Information 7 Kwaku Figueredo. [facility] [address], [place], [address], [place]. tel:[phone] Office/Outpa tient Visit, Est [facility] , [address], [place], [address], [place] tel:[phone] [facility] , Follow Up of Rheumatoid arthritis (chief complaint) RA w/ rheumatoid factor of multiple sites w/o organ involvementN onspecific elevation of levels of transaminase and lactic acid dehydrogenas e [LDH]Other rn long term care (current) drug therapy Kwaku Fariaen. [facility] [address], [place], [address], [place]. tel:[phone] Referring Provider: Bea Ayala, [facility] [address], [place], [address]. [phone] Office/Outpa tient Visit, Est [facility] , [address], [place], [address], [place] tel:[phone] [facility] , Follow Up of Rheumatoid arthritis (chief complaint) RA w/ rheumatoid factor of multiple sites w/o organ involvementN onspecific elevation of levels of transaminase and lactic acid dehydrogenas e [LDH]Other rn long term care (current) drug therapy Kwaku Figueredo. [facility] [address], [place], [address], [place]. tel:[phone] Referring Provider: Bea Ayala, [facility] [address], [place], [address]. tel:[phone] Office/Outpa tient Visit, Est [facility] , [address], [place], [address], [place] tel:[phone] [facility] , Follow Up of Rheumatoid arthritis (chief complaint) RA w/ rheumatoid factor of multiple sites w/o organ involvementO ther long-term (current) drug therapyNonsp ecific elevation of levels of transaminase and lactic acid dehydrogenas e [LDH] Ames Bea. [facility] [address], [place], [address], [place]. tel:[phone] Referring Provider: Bea Ayala, [facility] [address], [place], [address]. tel:[phone] Office/Outpa tient Visit, Est [facility] , [address], [place], [address], [place] tel:[phone] [facility] , Follow Up of Rheumatoid arthritis (chief complaint) RA w/ rheumatoid factor of multiple sites w/o organ involvementO ther specified RA of wristOther long-term (current) drug therapyRash and other nonspecific skin eruption 7 Kwaku Figueredo. [facility] [address], [place], [address], [place]. tel:[phone] Referring Provider: Bea Ayala, [facility] [address], [place], [address]. [phone] Office/Outpa tient Visit, New [facility] , [address], [place], [address], [place] tel:[phone] [facility] , Joint Pain (chief complaint) RA w/ rheumatoid factor of multiple sites w/o organ involvementO ther rn long term care (current) drug therapyOther specified RA of wrist 6 Kwaku Figueredo. [facility] [address], [place], [address], [place]. tel:[phone] Referring Provider: Bea Ayala, [facility] [address], [place], [address]. tel:[phone] [facility] , [address], [place], [address], [place] tel:[phone] [facility] , No Information 6 Kwaku Figueredo. [facility] [address], [place], [address], [place]. tel:[phone] Family History Family Member Type Diagnosis Age At Onset Mother Problem (finding) Thyroid disorder Paternal grandmother Problem (finding) rheumatoid arth ritis Immunizations Vaccine Date Status Comments COVID-19 Pfizer administered Source: [facility]our ce Unspecified COVID-19 Pfizer administered Source: [facility] Unspecified COVID-19 Pfizer administered Source: [facility]our ce Unspecified Payers Payer name Insurance type Covered green party ID Authormadonna sigala(s) [facility] [id number] Social History Type Description Quantity Date Captured Comments Sex Female Smoking Status No Information Chief Complaint And Reason For Visit No Information Reason For Referral Reason For Referral No Information Plan Of Treatment Date Type Action Status Referral Ordered: X-Ray Exam Of Foot 2v ordered Referral Ordered: XRay Exam Of Hand 2v ordered Appointment Sujata Russell BOOKED Appointment Sujata Russell BOOKED History Of Present [...]
--- NOTE | 2024-06-07 11:30 | CRLHL7_ITS ---
For Patients: As a result of the Century Cures Act, medical imaging exams and procedure reports are released immediately into your electronic medical record. You may view this report before your referring provider. If you have questions, please contact your health care provider. BILATERAL SCREENING MAMMOGRAM WITH COMPUTER-AIDED DETECTION AND TOMOSYNTHESIS TECHNIQUE: CC and MLO views were obtained. These mammographic images have been obtained using full-field digital technique. These mammographic images were interpreted with the benefit of computer-aided detection. Breast Tomosynthesis was used in this interpretation. COMPARISON FILM: 06/02/23, 02/12/22, 12/08/19. FINDINGS: The breasts are heterogeneously dense, which may obscure small masses. IMPRESSION: There is no radiographic evidence for malignancy. ASSESSMENT: BI-RADS Category 1: Negative RECOMMENDATION: Routine screening mammogram in 1 year. A lay language report of this examination will be provided to the patient. Emmanuel Castle M.D. Diagnostic Radiologist [email or web address] SP/Dictated by: Emmanuel Castle MD @ 06/07/2024 12:05:00 PM (Electronically Signed)
== END 2024-06-07 11:15 | disposition home or self-care (01) ==
LOC: MAMMO 11:15
PROVIDERS: PCP Family Medicine; Visit Provider Family Medicine
DX: Z12.31 Encounter for screening mammogram for malignant neoplasm of breast (principal); R92.2 Inconclusive mammogram
CPT/HCPCS: 77063; 77067

== ENCOUNTER 2024-06-30 07:45 | Outpatient (CLI) | payer BC, SELFPAY ==
--- OUTSIDE RECORDS SUMMARY | 2024-07-04 15:27 | XMS_ITS | Clinical Summary ---
Author Organization [facility] Address [place], [place] [address] Care Team Providers Care Communication Professor Name Role Phone Mercedez Church MD Primary [...] this topic Medical Devices Implanted Type Area Ecological Risk Assessor Device Identifier Shelf Expiration Date Model / Serial / Lot [id number] 1-4mm 60cc Medtronic Fine Canclls Freeze Dried Implanted:Qty: 1 on 06/30/2022 by Dora Castellano MD at [facility] Explanted:at [facility] (Quantity not on file) N/A: Spine Medtronic Spine/Ortho 04/17/2026 [id number] / [id number] / Spacer Lmbr [id number] [place] Convex Stra Tlif - [id number] Implanted:Qty: 1 on 06/30/2022 by Dora Castellano MD at [facility] N/A: Spine [employer] [id number] / / [id number] Spacer Lmbr [id number] [place] Convex Stra Tlif - [id number] Implanted:Qty: 1 on 06/30/2022 by Dora Castellano MD at [facility] N/A: Spine [employer] 02/01/2030 [id number] / / [id number] Set Screw Lmbr 5.5-6mm Vitality Torque - [id number] Implanted:Qty: 6 on 06/30/2022 by Dora Castellano MD at [facility] N/A: Spine [employer] Spine [id number] 01 / / Cisco Lmbr 70x5.5mm Vitality Cvd Titnm - [id number] Implanted:Qty: 2 on 06/30/2022 by Dora Castellano MD at [facility] N/A: Spine [employer] Spine [id number] 11 / / Screw 6.5x45mm Implanted:Qty: 5 on 06/30/2022 by Dora Castellano MD at [facility] N/A: Spine [id number] / / Description:SCREW 6.5X45MM Screw 5.5x45mm Implanted:Qty: 1 on 06/30/2022 by Dora Castellano MD at [facility] N/A: Spine [id number] / / Description:SCREW 5.5X45MM [id number] e Matrix 6cc Millard Dbf Putty Dbm Implanted:Qty: 1 on 06/30/2022 by Dora Castellano MD at [facility] Explanted:at [facility] (Quantity not on file) N/A: Spine Medtronic Spine/Ortho 06/04/2024 [id number] / [id number] / Procedures Procedure Name Priority Date/Time Associated Diagnosis Comments HPV THIN PREP Routine 07/02/2023 10:49 AM CDT from Last 3 Months or Most Recently Relevant to Health Maintenance Results * HPV HIGH RISK (07/02/2023 10:49 AM CDT) TYPE 16 Negative Negative 07/06/2023 11:43 AM CDT [facility] TYPE 18 Negative Negative 07/06/2023 11:43 AM CDT [facility] OTHER HIGH RISK TYPES Negative Negative 07/06/2023 11:43 AM CDT [facility] Other (Cervical/Vagina l) 07/02/2023 10:49 AM CDT 07/04/2023 11:06 AM CDT [facility] - 07/06/2023 11:43 AM CDT HPV types 16, 18, 31, 33, 35, 39, 45, 51, 52, 56, 58, 59, 66 and 68 DNA were undetectable or below the pre-set threshold. Methodology: Bird Len 4800 HPV Test Mercedez Church MD [facility] [address] [place] [address], from Last 3 Months or Most Recently Relevant to Health Maintenance Advance Directives * Full Code (Latest Code Status on File) Date Activated Date Inactivated Comments 06/30/2022 11:20 AM 07/02/2022 6:22 PM Question Answer Comments Code Status Discussion: Unable to Assess Preferences, Provider to review later Care Teams Communication Professor Relationship Specialty Start Date End Date Mercedez Church MD [address] [place] [address] PCP - General Family Practice 01/22/22
--- OUTSIDE RECORDS SUMMARY | 2024-07-04 15:28 | XMS_ITS | Continuity of Care Document ---
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 Name Role Phone Dora Castellano MD Unavailable Unavailable Allergies, Adverse Reactions, Alerts Substance Reaction Status Criticality hydroxychloroquine Active No Inform ation bee venom protein (honey bee) Active No Information Medications Medication Instructions Dosage Effective Dates (start - stop) Status Comments ZINC (unknown strength) Not Available - Ac tive AUVI-Q (unknown strength) Not Available - Active TRAMADOL HCL (unknown strength) Not Available - Active PREGABALIN (unknown strength) Not Available - Active RIZATRIPTAN (unknown strength) Not Available - Active METHOTREXATE (unknown strength) Not Available - Active VITAMIN D3 (unknown strength) Not Available - Active MELOXICAM (unknown strength) Not Available - Active ESCITALOPRAM OXALATE (unknown strength) Not Available - Active NADOLOL (unknown strength) Not Available - Active FOLIC ACID (unknown strength) Not Available - Active CALCIUM 600-VIT D3 (unknown strength) Not Available - Active Procedures Procedure Date Office/Outpatient Visit,Est, Low 2022 [...] Visit,Est, Low [facility], [address], [place], [place], [id number], [place] tel:[phone] [facility] Arthrodesis status 3 Mehbod Amir. [facility] [place], [address] [place] [address], [id number] , [place]. tel:[phone] Referring Provider: Orion De Leon, [place] [address] [place] [address], [id number]. tel:[phone] Office/Outpat ient Visit,Est, Mod [facility], [address], [place], [place], [id number], [place] tel:[phone] [facility] Encounter for other specified surgical aftercare 2 Mehbod Amir. [facility] [place], [address] [place] [address], [id number] , [place]. tel:[phone] Referring Provider: Orion De Leon [place] [address] [place] [address], [address]. tel:[phone] [facility], [address], [facility] [place] [id number], [place] tel:[phone] [facility] Encounter for other specified surgical aftercare 2 Mehbod Amir. [facility] [place], [address], [place], [place], [id number] , [place]. tel:[phone] Referring Provider: Orion De Leon, [place] [facility], [place], [address]. tel:[phone] [facility], [address], [place], [place], [id number], [place] tel:[phone] [facility] No Information 2 Kavitha Angeles. [address] [place] [address], [place], [place], [id number] , [place]. [phone] Referring Provider: Orion De Leon [place] [facility], [place], [address]. tel:[phone] [facility], [address], [place], [place], [id number], [place] tel:[phone] [facility] No Information 2 Mehbod Amir. [facility] [place], [address], [place], [place], [id number] , [place]. tel:[phone] Referring Provider: Orion De Leon [place] [address] [place] [address], [place], [address]. tel:[phone] Office/Outpat ient Visit,[facility], [facility], [address], [place], [place], [id number], [place] tel:[phone] [facility] No Information 2 Mehbod Amir. [facility] [place], [address], [place], [place], [id number] , [place]. tel:[phone] Referring Provider: Orion De Leon [place] [address] [place] [address], [place], [address]. tel:[phone] [facility], [address], [place], [id number], [place] tel:[phone] [facility] No Information 2 Gray John. [facility], [address] [place] [address] [address], [place], [id number] , [place]. tel:[phone] Family History Family Member Type Diagnosis Age At Onset No Information Payers Payer name Insurance type Covered democrat ID Marvin sigala(s) [facility] [id number] Out Of State [id number] Social History Type Description Quantity Date Captured [...]
--- OUTSIDE RECORDS SUMMARY | 2024-07-04 15:28 | XMS_ITS | Continuity of Care Document ---
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 [facility] [address], [place], [address], [place]. tel:[phone] Office/Outpa tient Visit, Est [facility] , [address], [place], [address], [place] tel:[phone] [facility] , Follow Up of Rheumatoid arthritis (chief complaint) Dry eye syndrome of bilateral lacrimal glandsRA w/ rheumatoid factor of multiple sites w/o organ involvementF ibromyalgiaO ther senior living (current) drug therapy 0 4 Kwaku Figueredo. [facility] [address], [place], [address], [place]. tel:[phone] Referring Provider: Bea Ayala, [facility] [address], [place], [address]. tel:[phone] Office/Outpa tient Visit, Est [facility] , [address], [place], [address], [place] tel:[phone] [facility] , Follow Up of Rheumatoid arthritis (chief complaint) Dry eye syndrome of bilateral lacrimal glandsRA w/ rheumatoid factor of multiple sites w/o organ involvementF ibromyalgiaO ther marine superintendent (current) drug therapy 3 Kwaku Bea. [facility] [address], [place], [address], [place]. tel:[phone] Referring Provider: Bea Ayala, [facility] [address], [place], [address]. tel:[phone] [facility] , [address], [place], [address], [place] tel:[phone] [facility] No Information 3 Kwaku Figueredo. [facility] [address], [place], [address], [place]. tel:[phone] Office/Outpa tient Visit, Est [facility] , [address], [place], [address], [place] tel:[phone] [facility] , Follow Up of Rheumatoid arthritis (chief complaint) Dry eye syndrome of bilateral lacrimal glandsRA w/ rheumatoid factor of multiple sites w/o organ involvementF ibromyalgiaO ther senior living (current) drug therapy 3 Kwaku Bea. [facility] [address], [place], [address], [place]. tel:[phone] Referring Provider: Bea Ayala, [facility] [address], [place], [address]. tel:[phone] Office/Outpa tient Visit, Est [facility] , [address], [place], [address], [place] tel:[phone] [facility] , Follow Up of Rheumatoid arthritis (chief complaint) Dry eye syndrome of bilateral lacrimal glandsRA w/ rheumatoid factor of multiple sites w/o organ involvementF ibromyalgiaN onspecific elevation of levels of transaminase and lactic acid dehydrogenas e [LDH]Other marine superintendent (current) drug therapyLow back pain, unspecifiedP ain in left knee 2 Kwaku Figueredo. [facility] [address], [place], [address], [place]. tel:[phone] Referring Provider: Bea Ayala, [facility] [address], [place], [address]. tel:[phone] Office/Outpa tient Visit, Est [facility] , [address], [place], [address], [place] tel:[phone] [facility] , Follow Up of Rheumatoid arthritis (chief complaint) Dry eye syndrome of bilateral lacrimal glandsRA w/ rheumatoid factor of multiple sites w/o organ involvementF ibromyalgiaN onspecific elevation of levels of transaminase and lactic acid dehydrogenas e [LDH]Other marine superintendent (current) drug therapyLow back pain, unspecified 2 Kwaku Figueredo. [facility] [address], [place], [address], [place]. tel:[phone] Referring Provider: Bea Ayala, [facility] [address], [place], [address]. tel:[phone] Office/Outpa tient Visit, Est [facility] , [address], [place], [address], [place] tel:[phone] [facility] , Follow Up of Rheumatoid arthritis (chief complaint) Dry eye syndrome of bilateral lacrimal glandsRA w/ rheumatoid factor of multiple sites w/o organ involvementF ibromyalgiaN onspecific elevation of levels of transaminase and lactic acid dehydrogenas e [LDH]Other marine superintendent (current) drug therapyLow back pain, unspecified Fe 2 Kwaku Figueredo. [facility] [address], [place], [address], [place]. tel:[phone] Referring Provider: Bea Ayala, [facility] [address], [place], [address]. tel:[phone] Office/Outpa tient Visit, Est [facility] , [address], [place], [address], [place] tel:[phone] [facility] , Follow Up of Rheumatoid arthritis (chief complaint) RA w/ rheumatoid factor of multiple sites w/o organ involvementF ibromyalgiaN onspecific elevation of levels of transaminase and lactic acid dehydrogenas e [LDH]Other senior living (current) drug therapyDry eye syndrome of bilateral lacrimal glandsVitami n D deficiency, unspecified 1 Kwaku Figueredo. [facility] [address], [place], [address], [place]. tel:[phone] Referring Provider: Bea Ayala, [facility] [address], [place], [address]. 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 [facility] [address], [place], [address], [place]. tel:[phone] Referring Provider: Bea Ayala, [facility] [address], [place], [address]. 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 [facility] [address], [place], [address], [place]. tel:[phone] Referring Provider: Bea Ayala, [facility] [address], [place], [address]. tel:[phone] Office/Outpa tient Visit, Est [facility] , [address], [place], [address], [place] tel:[phone] [facility] , Follow Up of Rheumatoid arthritis (chief complaint) RA w/ rheumatoid factor of multiple sites w/o organ involvementF ibromyalgiaN onspecific elevation of levels of transaminase and lactic acid dehydrogenas e [LDH]Other marine superintendent (current) drug therapyPain in right knee 0 Kwaku Figueredo. [facility] [address], [place], [address], [place]. tel:[phone] Referring Provider: Bea Ayala, [facility] [address], [place], [address]. 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 [facility] [address], [place], [address], [place]. tel:[phone] Referring Provider: Bea Ayala, [facility] [address], [place], [address]. tel:[phone] Office/Outpa tient Visit, Est [facility] , [address], [place], [address], [place] tel:[phone] [facility] , Follow Up of Rheumatoid arthritis (chief complaint) RA w/ rheumatoid factor of multiple sites w/o organ involvementF ibromyalgiaN onspecific elevation of levels of transaminase and lactic acid dehydrogenas e [LDH]Other senior living (current) drug therapyTenni s elbow of right elbow Jan-0 4-202 0 Kwaku Fariaen. [facility] [address], [place], [address], [place]. tel:[phone] Referring Provider: Bea Ayala, [facility] [address], [place], [address]. tel:[phone] Office/Outpa tient Visit, Est [facility] , [address], [place], [address], [place] tel:[phone] [facility] , Follow Up of Rheumatoid arthritis (chief complaint) RA w/ rheumatoid factor of multiple sites w/o organ involvementF ibromyalgiaN onspecific elevation of levels of transaminase and lactic acid dehydrogenas e [LDH]Other senior living (current) drug therapyTenni s elbow of right elbow Dec-0 5-201 9 Kwaku Figueredo. [facility] [address], [place], [address], [place]. tel:[phone] Referring Provider: Bea Ayala, [facility] [address], [place], [address]. tel:[phone] Office/Outpa tient Visit, Est [facility] , [address], [place], [address], [place] tel:[phone] [facility] , Follow Up of Rheumatoid arthritis (chief complaint) RA w/ rheumatoid factor of multiple sites w/o organ involvementF ibromyalgiaN onspecific elevation of levels of transaminase and lactic acid dehydrogenas e [LDH]Other senior living (current) drug therapy 9 Kwaku Figueredo. [facility] [address], [place], [address], [place]. tel:[phone] Referring Provider: Bea Ayala, [facility] [address], [place], [address]. tel:[phone] Office/Outpa tient Visit, Est [facility] , [address], [place], [address], [place] tel:[phone] [facility] , Follow Up of Rheumatoid arthritis (chief complaint) RA w/ rheumatoid factor of multiple sites w/o organ involvementF ibromyalgiaN onspecific elevation of levels of transaminase and lactic acid dehydrogenas e [LDH]Other senior living (current) drug therapy 9 Kwaku Figueredo. [facility] [address], [place], [address], [place]. tel:[phone] Referring Provider: Bea Ayala, [facility] [address], [place], [address]. tel:[phone] Office/Outpa tient Visit, Est [facility] , [address], [place], [address], [place] tel:[phone] [facility] , Follow Up of Rheumatoid arthritis (chief complaint) RA w/ rheumatoid factor of multiple sites w/o organ involvementM edial epicondyliti s, right elbowFibromy algiaNonspec ific elevation of levels of transaminase and lactic acid dehydrogenas e [LDH]Other senior living (current) drug therapy Kwaku Figueredo. [facility] [address], [place], [address], [place]. tel:[phone] Referring Provider: Bea Ayala, [facility] [address], [place], [address]. tel:[phone] Office/Outpa tient Visit, Est [facility] , [address], [place], [address], [place] tel:[phone] [facility] , Follow Up of Rheumatoid arthritis (chief complaint) RA w/ rheumatoid factor of multiple sites w/o organ involvementF ibromyalgiaN onspecific elevation of levels of transaminase and lactic acid dehydrogenas e [LDH]Other senior living (current) drug therapyMedia l epicondyliti s, right elbow Kwaku Figueredo. [facility] [address], [place], [address], [place]. tel:[phone] Referring Provider: Bea Ayala, [facility] [address], [place], [address]. tel:[phone] Office/Outpa tient Visit, Est [facility] , [address], [place], [address], [place] tel:[phone] [facility] , Follow Up of Rheumatoid arthritis (chief complaint) RA w/ rheumatoid factor of multiple sites w/o organ involvementF ibromyalgiaN onspecific elevation of levels of transaminase and lactic acid dehydrogenas e [LDH]Other senior living (current) drug therapy 8 Kwaku Figueredo. [facility] [address], [place], [address], [place]. tel:[phone] Referring Provider: Bea Ayala, [facility] [address], [place], [address]. tel:[phone] Office/Outpa tient Visit, Est [facility] , [address], [place], [address], [place] tel:[phone] [facility] , Follow Up of Rheumatoid arthritis (chief complaint) RA w/ rheumatoid factor of multiple sites w/o organ involvementN onspecific elevation of levels of transaminase and lactic acid dehydrogenas e [LDH]Other senior living (current) drug therapyFibro myalgia 8 Kwaku Figueredo. [facility] [address], [place], [address], [place]. tel:[phone] Referring Provider: Bea Ayala, [facility] [address], [place], [address]. tel:[phone] Office/Outpa tient Visit, Est [facility] , [address], [place], [address], [place] tel:[phone] [facility] , Follow Up of Rheumatoid arthritis (chief complaint) RA w/ rheumatoid factor of multiple sites w/o organ involvementN onspecific elevation of levels of transaminase and lactic acid dehydrogenas e [LDH]Other senior living (current) drug therapyHeada jesus 8 Kwaku Figueredo. [facility] [address], [place], [address], [place]. tel:[phone] Referring Provider: Bea Ayala, [facility] [address], [place], [address]. 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 [facility] [address], [place], [address], [place]. tel:[phone] Referring Provider: Bea Ayala, [facility] [address], [place], [address]. tel:[phone] [facility] , [address], [place], [address], [place] tel:[phone] [facility] , No Information 7 Kwaku Figueredo. [facility] [address], [place], [address], [place]. 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 [facility] [address], [place], [address], [place]. tel:[phone] Referring Provider: Bea Ayala, [facility] [address], [place], [address]. 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 [facility] [address], [place], [address], [place]. tel:[phone] Referring Provider: Bea Ayala, [facility] [address], [place], [address]. tel:[phone] Office/Outpa tient Visit, Est [facility] , [address], [place], [address], [place] tel:[phone] [facility] , Follow Up of Rheumatoid arthritis (chief complaint) RA w/ rheumatoid factor of multiple sites w/o organ involvementO ther senior living (current) drug therapyNonsp ecific elevation of levels of transaminase and lactic acid dehydrogenas e [LDH] Ames Bea. [facility] [address], [place], [address], [place]. tel:[phone] Referring Provider: Bea Ayala, [facility] [address], [place], [address]. tel:[phone] Office/Outpa tient Visit, Est [facility] , [address], [place], [address], [place] tel:[phone] [facility] , Follow Up of Rheumatoid arthritis (chief complaint) RA w/ rheumatoid factor of multiple sites w/o organ involvementO ther specified RA of wristOther marine superintendent (current) drug therapyRash and other nonspecific skin eruption 7 Kwaku Figueredo. [facility] [address], [place], [address], [place]. tel:[phone] Referring Provider: Bea Ayala, [facility] [address], [place], [address]. [phone] Office/Outpa tient Visit, New [facility] , [address], [place], [address], [place] tel:[phone] [facility] , Joint Pain (chief complaint) RA w/ rheumatoid factor of multiple sites w/o organ involvementO ther marine superintendent (current) drug therapyOther specified RA of wrist 6 Kwaku Figueredo. [facility] [address], [place], [address], [place]. tel:[phone] Referring Provider: Bea Ayala, [facility] [address], [place], [address]. tel:[phone] [facility] , [address], [place], [address], [place] tel:[phone] [facility] , No Information 6 Kwaku Figueredo. [facility] [address], [place], [address], [place]. tel:[phone] Family History Family Member Type Diagnosis Age At Onset Mother Problem (finding) Thyroid disorder Paternal grandmother Problem (finding) rheumatoid arth ritis Immunizations Vaccine Date Status Comments COVID-19 Pfizer administered Source: [facility] Unspecified COVID-19 Pfizer administered Source: [facility] Unspecified COVID-19 Pfizer administered Source: [facility] Unspecified Payers Payer name Insurance type Covered alliance party ID Authormadonna sigala(s) [facility] [place] [id number] Social History Type Description Quantity Date Captured [...]
== END 2024-06-30 07:46 | disposition home or self-care (01) ==
LOC: NFLDREF 07-04 15:26
PROVIDERS: PCP Family Medicine; Referring Provider Family Medicine; Visit Provider Family Medicine
DX: Z79.1 Long term (current) use of non-steroidal anti-inflammatories (NSAID) (principal); E78.5 Hyperlipidemia, unspecified; E03.9 Hypothyroidism, unspecified; M06.9 Rheumatoid arthritis, unspecified
CPT/HCPCS: 80053; 80061; 84439; 84443

== ENCOUNTER 2024-07-31 10:08 | Outpatient (REF) | payer BC, SELFPAY ==
--- OUTSIDE RECORDS SUMMARY | 2024-07-31 10:10 | XMS_ITS | Clinical Summary ---
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 Role Phone Mercedez Church MD Primary [...] [phone] COVID-19 vaccine series (2022- season) 2024 09/10/2022, 05/12/2022, 07/16/2021 Influenza for age 50-64 07/23/2024 Pap test for age 21-65 07/02/2026 , 07/02/2023, 08/20/2017, Additional history exists Pneumococcal series for age 6-64 Aged Out No longer eligible based on patient's age to complete this topic Medical Devices Implanted Type Area Body Work Auto Trimmer Device Identifier Shelf Expiration Date Model / Serial / Lot [id number] 1-4mm 60cc Medtronic Fine Canclls Freeze Dried Implanted:Qty: 1 on 06/30/2022 by Dora Castellano MD at [facility] Explanted:at [facility] (Quantity not on file) N/A: Spine Medtronic Spine/Ortho 04/17/2026 [id number] / [id number] / Spacer Lmbr [id number] [place] Convex Stra Tlif - [id number] Implanted:Qty: 1 on 06/30/2022 by Dora Castellano MD at [facility] N/A: Spine [employer] [id number] / / [id number] Spacer Lmbr [id number] [place] Convex Stra Tlif - [id number] Implanted:Qty: 1 on 06/30/2022 by Dora Castellano MD at [facility] N/A: Spine [employer] 02/01/2030 [id number] / / [id number] Set Screw Lmbr 5.5-6mm Vitality Torque - [id number] Implanted:Qty: 6 on 06/30/2022 by Dora Castellano MD at [facility] N/A: Spine [employer] Spine [id number] 01 / / Cisco Lmbr 70x5.5mm Vitality Cvd Titak - [id number] Implanted:Qty: 2 on 06/30/2022 by Dora Castellano MD at [facility] N/A: Spine [employer] Spine [id number] 11 / / Screw 6.5x45mm Implanted:Qty: 5 on 06/30/2022 by Dora Castellano MD at [facility] N/A: Spine [id number] / / Description:SCREW 6.5X45MM Screw 5.5x45mm Implanted:Qty: 1 on 06/30/2022 by Dora Castellano MD at [facility] N/A: Spine [id number] / / Description:SCREW 5.5X45MM [id number] e Matrix 6cc Adolfo Dbf Putty Dbm Implanted:Qty: 1 on 06/30/2022 by Dora Castellano MD at [facility] Explanted:at [facility] (Quantity not on file) N/A: Spine Medtronic Spine/Ortho 06/04/2024 [id number] / [id number] / Procedures Procedure Name Priority Date/Time Associated Diagnosis Comments HPV THIN PREP Routine 07/02/2023 10:49 AM CDT from Last 3 Months or Most Recently Relevant to Health Maintenance Results * HPV HIGH RISK (07/02/2023 10:49 AM CDT) TYPE 16 Negative Negative 07/06/2023 11:43 AM CDT [facility] TYPE 18 Negative Negative 07/06/2023 11:43 AM CDT [facility] OTHER HIGH RISK TYPES Negative Negative 07/06/2023 11:43 AM CDT [facility] Other (Cervical/Vagina l) 07/02/2023 10:49 AM CDT 07/04/2023 11:06 AM CDT [facility] - 07/06/2023 11:43 AM CDT HPV types 16, 18, 31, 33, 35, 39, 45, 51, 52, 56, 58, 59, 66 and 68 DNA were undetectable or below the pre-set threshold. Methodology: Bird Len 4800 HPV Test Mercedez Church MD [facility] [address] [place] [address], from Last 3 Months or Most Recently Relevant to Health Maintenance Advance Directives * Full Code (Latest Code Status on File) Date Activated Date Inactivated Comments 06/30/2022 11:20 AM 07/02/2022 6:22 PM Question Answer Comments Code Status Discussion: Unable to Assess Preferences, Provider to review later Care Teams Dry Room Operator Relationship Specialty Start Date End Date Mercedez Church MD [address] [place] [address] PCP - General Family Practice 01/22/22
--- OUTSIDE RECORDS SUMMARY | 2024-07-31 10:11 | XMS_ITS | Continuity of Care Document ---
Author Organization [facility] Address [address] [place] [address] Phone Care Team Providers Care Manager Payer Name Role Phone Bea Ames MD Unavailable [...] times every day 75 MG - Active [place] Thyroid 30 mg tablet 1/2 tablet daily [...] [facility] , [address], [place], [address], [place] tel:[phone] [facility] , No Information 0 4 Kwaku Figueredo. [facility] [address], [place], [address], [place]. tel:[phone] Office/Outpa tient Visit, Est [facility] , [address], [place], [address], [place] tel:[phone] [facility] , Follow Up of Rheumatoid arthritis (chief complaint) Dry eye syndrome of bilateral lacrimal glandsRA w/ rheumatoid factor of multiple sites w/o organ involvementF ibromyalgiaO ther local company intermodal truck driver (current) drug therapy 0 4 Kwaku Figueredo. [facility] [address], [place], [address], [place]. tel:[phone] Referring Provider: Bea Ayala, [facility] [address], [place], [address]. tel:[phone] Office/Outpa tient Visit, Est [facility] , [address], [place], [address], [place] tel:[phone] [facility] , Follow Up of Rheumatoid arthritis (chief complaint) Dry eye syndrome of bilateral lacrimal glandsRA w/ rheumatoid factor of multiple sites w/o organ involvementF ibromyalgiaO ther local company intermodal truck driver (current) drug therapy 3 Kwaku Bea. [facility] [address], [place], [address], [place]. tel:[phone] Referring Provider: Bea Ayala, [facility] [address], [place], [address]. tel:[phone] [facility] , [address], [place], [address], [place] tel:[phone] [facility] No Information 3 Kwaku Figueredo. [facility] [address], [place], [address], [place]. tel:[phone] Office/Outpa tient Visit, Est [facility] , [address], [place], [address], [place] tel:[phone] [facility] , Follow Up of Rheumatoid arthritis (chief complaint) Dry eye syndrome of bilateral lacrimal glandsRA w/ rheumatoid factor of multiple sites w/o organ involvementF ibromyalgiaO ther shelter (current) drug therapy 3 Kwaku Bea. [facility] [address], [place], [address], [place]. tel:[phone] Referring Provider: Bea Ayala, [facility] [address], [place], [address]. tel:[phone] Office/Outpa tient Visit, Est [facility] , [address], [place], [address], [place] tel:[phone] [facility] , Follow Up of Rheumatoid arthritis (chief complaint) Dry eye syndrome of bilateral lacrimal glandsRA w/ rheumatoid factor of multiple sites w/o organ involvementF ibromyalgiaN onspecific elevation of levels of transaminase and lactic acid dehydrogenas e [LDH]Other shelter (current) drug therapyLow back pain, unspecifiedP ain in left knee 2 Kwaku Figueredo. [facility] [address], [place], [address], [place]. tel:[phone] Referring Provider: Bea Ayala, [facility] [address], [place], [address]. tel:[phone] Office/Outpa tient Visit, Est [facility] , [address], [place], [address], [place] tel:[phone] [facility] , Follow Up of Rheumatoid arthritis (chief complaint) Dry eye syndrome of bilateral lacrimal glandsRA w/ rheumatoid factor of multiple sites w/o organ involvementF ibromyalgiaN onspecific elevation of levels of transaminase and lactic acid dehydrogenas e [LDH]Other local company intermodal truck driver (current) drug therapyLow back pain, unspecified 2 Kwaku Figueredo. [facility] [address], [place], [address], [place]. tel:[phone] Referring Provider: Bea Ayala, [facility] [address], [place], [address]. tel:[phone] Office/Outpa tient Visit, Est [facility] , [address], [place], [address], [place] tel:[phone] [facility] , Follow Up of Rheumatoid arthritis (chief complaint) Dry eye syndrome of bilateral lacrimal glandsRA w/ rheumatoid factor of multiple sites w/o organ involvementF ibromyalgiaN onspecific elevation of levels of transaminase and lactic acid dehydrogenas e [LDH]Other local company intermodal truck driver (current) drug therapyLow back pain, unspecified Fe 2 Kwaku Figueredo. [facility] [address], [place], [address], [place]. tel:[phone] Referring Provider: Bea Ayala, [facility] [address], [place], [address]. tel:[phone] Office/Outpa tient Visit, Est [facility] , [address], [place], [address], [place] tel:[phone] [facility] , Follow Up of Rheumatoid arthritis (chief complaint) RA w/ rheumatoid factor of multiple sites w/o organ involvementF ibromyalgiaN onspecific elevation of levels of transaminase and lactic acid dehydrogenas e [LDH]Other local company intermodal truck driver (current) drug therapyDry eye syndrome of bilateral lacrimal glandsVitami n D deficiency, unspecified 1 Kwaku Figueredo. [facility] [address], [place], [address], [place]. tel:[phone] Referring Provider: Bea Ayala, [facility] [address], [place], [address]. tel:[phone] Office/Outpa tient Visit, Est [facility] , [address], [place], [address], [place] tel:[phone] [facility] , Follow Up of Rheumatoid arthritis (chief complaint) RA w/ rheumatoid factor of multiple sites w/o organ involvementF ibromyalgiaN onspecific elevation of levels of transaminase and lactic acid dehydrogenas e [LDH]Other shelter (current) drug therapy 1 Kwaku Figueredo. [facility] [address], [place], [address], [place]. tel:[phone] Referring Provider: Bea Ayala, [facility] [address], [place], [address]. 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 [facility] [address], [place], [address], [place]. tel:[phone] Referring Provider: Bea Ayaal, [facility] [address], [place], [address]. tel:[phone] Office/Outpa tient Visit, Est [facility] , [address], [place], [address], [place] tel:[phone] [facility] , Follow Up of Rheumatoid arthritis (chief complaint) RA w/ rheumatoid factor of multiple sites w/o organ involvementF ibromyalgiaN onspecific elevation of levels of transaminase and lactic acid dehydrogenas e [LDH]Other shelter (current) drug therapyPain in right knee 0 Kwaku Figueredo. [facility] [address], [place], [address], [place]. tel:[phone] Referring Provider: Bea Ayala, [facility] [address], [place], [address]. 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 [facility] [address], [place], [address], [place]. tel:[phone] Referring Provider: Bea Ayala, [facility] [address], [place], [address]. tel:[phone] Office/Outpa tient Visit, Est [facility] , [address], [place], [address], [place] tel:[phone] [facility] , Follow Up of Rheumatoid arthritis (chief complaint) RA w/ rheumatoid factor of multiple sites w/o organ involvementF ibromyalgiaN onspecific elevation of levels of transaminase and lactic acid dehydrogenas e [LDH]Other local company intermodal truck driver (current) drug therapyTenni s elbow of right elbow Jan-0 4-202 0 Kwaku Fariaen. [facility] [address], [place], [address], [place]. tel:[phone] Referring Provider: Bea Ayala, [facility] [address], [place], [address]. tel:[phone] Office/Outpa tient Visit, Est [facility] , [address], [place], [address], [place] tel:[phone] [facility] , Follow Up of Rheumatoid arthritis (chief complaint) RA w/ rheumatoid factor of multiple sites w/o organ involvementF ibromyalgiaN onspecific elevation of levels of transaminase and lactic acid dehydrogenas e [LDH]Other local company intermodal truck driver (current) drug therapyTenni s elbow of right elbow Dec-0 5-201 9 Kwaku Figueredo. [facility] [address], [place], [address], [place]. tel:[phone] Referring Provider: Bea Ayala, [facility] [address], [place], [address]. tel:[phone] Office/Outpa tient Visit, Est [facility] , [address], [place], [address], [place] tel:[phone] [facility] , Follow Up of Rheumatoid arthritis (chief complaint) RA w/ rheumatoid factor of multiple sites w/o organ involvementF ibromyalgiaN onspecific elevation of levels of transaminase and lactic acid dehydrogenas e [LDH]Other shelter (current) drug therapy 9 Kwaku Figueredo. [facility] [address], [place], [address], [place]. tel:[phone] Referring Provider: Bea Ayala, [facility] [address], [place], [address]. tel:[phone] Office/Outpa tient Visit, Est [facility] , [address], [place], [address], [place] tel:[phone] [facility] , Follow Up of Rheumatoid arthritis (chief complaint) RA w/ rheumatoid factor of multiple sites w/o organ involvementF ibromyalgiaN onspecific elevation of levels of transaminase and lactic acid dehydrogenas e [LDH]Other shelter (current) drug therapy 9 Kwaku Figueredo. [facility] [address], [place], [address], [place]. tel:[phone] Referring Provider: Bea Ayala, [facility] [address], [place], [address]. tel:[phone] Office/Outpa tient Visit, Est [facility] , [address], [place], [address], [place] tel:[phone] [facility] , Follow Up of Rheumatoid arthritis (chief complaint) RA w/ rheumatoid factor of multiple sites w/o organ involvementM edial epicondyliti s, right elbowFibromy algiaNonspec ific elevation of levels of transaminase and lactic acid dehydrogenas e [LDH]Other shelter (current) drug therapy Kwaku Figueredo. [facility] [address], [place], [address], [place]. tel:[phone] Referring Provider: Bea Ayala, [facility] [address], [place], [address]. tel:[phone] Office/Outpa tient Visit, Est [facility] , [address], [place], [address], [place] tel:[phone] [facility] , Follow Up of Rheumatoid arthritis (chief complaint) RA w/ rheumatoid factor of multiple sites w/o organ involvementF ibromyalgiaN onspecific elevation of levels of transaminase and lactic acid dehydrogenas e [LDH]Other local company intermodal truck driver (current) drug therapyMedia l epicondyliti s, right elbow Kwaku Figueredo. [facility] [address], [place], [address], [place]. tel:[phone] Referring Provider: Bea Ayala, [facility] [address], [place], [address]. tel:[phone] Office/Outpa tient Visit, Est [facility] , [address], [place], [address], [place] tel:[phone] [facility] , Follow Up of Rheumatoid arthritis (chief complaint) RA w/ rheumatoid factor of multiple sites w/o organ involvementF ibromyalgiaN onspecific elevation of levels of transaminase and lactic acid dehydrogenas e [LDH]Other shelter (current) drug therapy 8 Kwaku Figueredo. [facility] [address], [place], [address], [place]. tel:[phone] Referring Provider: Bea Ayala, [facility] [address], [place], [address]. tel:[phone] Office/Outpa tient Visit, Est [facility] , [address], [place], [address], [place] tel:[phone] [facility] , Follow Up of Rheumatoid arthritis (chief complaint) RA w/ rheumatoid factor of multiple sites w/o organ involvementN onspecific elevation of levels of transaminase and lactic acid dehydrogenas e [LDH]Other shelter (current) drug therapyFibro myalgia 8 Kwaku Figueredo. [facility] [address], [place], [address], [place]. tel:[phone] Referring Provider: Bea Ayala, [facility] [address], [place], [address]. tel:[phone] Office/Outpa tient Visit, Est [facility] , [address], [place], [address], [place] tel:[phone] [facility] , Follow Up of Rheumatoid arthritis (chief complaint) RA w/ rheumatoid factor of multiple sites w/o organ involvementN onspecific elevation of levels of transaminase and lactic acid dehydrogenas e [LDH]Other shelter (current) drug therapyHeada jesus 8 Kwaku Figueredo. [facility] [address], [place], [address], [place]. tel:[phone] Referring Provider: Bea Ayala, [facility] [address], [place], [address]. tel:[phone] Office/Outpa tient Visit, Est [facility] , [address], [place], [address], [place] tel:[phone] [facility] , Follow Up of Rheumatoid arthritis (chief complaint) RA w/ rheumatoid factor of multiple sites w/o organ involvementN onspecific elevation of levels of transaminase and lactic acid dehydrogenas e [LDH]Other shelter (current) drug therapy 7 Kwaku Figueredo. [facility] [address], [place], [address], [place]. tel:[phone] Referring Provider: Bea Ayala, [facility] [address], [place], [address]. tel:[phone] [facility] , [address], [place], [address], [place] tel:[phone] [facility] , No Information 7 Kwaku Figueredo. [facility] [address], [place], [address], [place]. tel:[phone] Office/Outpa tient Visit, Est [facility] , [address], [place], [address], [place] tel:[phone] [facility] , Follow Up of Rheumatoid arthritis (chief complaint) RA w/ rheumatoid factor of multiple sites w/o organ involvementN onspecific elevation of levels of transaminase and lactic acid dehydrogenas e [LDH]Other shelter (current) drug therapy Kwaku Fariaen. [facility] [address], [place], [address], [place]. tel:[phone] Referring Provider: Bea Ayala, [facility] [address], [place], [address]. [phone] Office/Outpa tient Visit, Est [facility] , [address], [place], [address], [place] tel:[phone] [facility] , Follow Up of Rheumatoid arthritis (chief complaint) RA w/ rheumatoid factor of multiple sites w/o organ involvementN onspecific elevation of levels of transaminase and lactic acid dehydrogenas e [LDH]Other shelter (current) drug therapy Kwaku Figueredo. [facility] [address], [place], [address], [place]. tel:[phone] Referring Provider: Bea Ayala, [facility] [address], [place], [address]. tel:[phone] Office/Outpa tient Visit, Est [facility] , [address], [place], [address], [place] tel:[phone] [facility] , Follow Up of Rheumatoid arthritis (chief complaint) RA w/ rheumatoid factor of multiple sites w/o organ involvementO ther local company intermodal truck driver (current) drug therapyNonsp ecific elevation of levels of transaminase and lactic acid dehydrogenas e [LDH] Ames Bea. [facility] [address], [place], [address], [place]. tel:[phone] Referring Provider: Bea Ayala, [facility] [address], [place], [address]. tel:[phone] Office/Outpa tient Visit, Est [facility] , [address], [place], [address], [place] tel:[phone] [facility] , Follow Up of Rheumatoid arthritis (chief complaint) RA w/ rheumatoid factor of multiple sites w/o organ involvementO ther specified RA of wristOther shelter (current) drug therapyRash and other nonspecific skin eruption 7 Kwaku Figueredo. [facility] [address], [place], [address], [place]. tel:[phone] Referring Provider: Bea Ayala, [facility] [address], [place], [address]. [phone] Office/Outpa tient Visit, New [facility] , [address], [place], [address], [place] tel:[phone] [facility] , Joint Pain (chief complaint) RA w/ rheumatoid factor of multiple sites w/o organ involvementO ther shelter (current) drug therapyOther specified RA of wrist 6 Kwaku Figueredo. [facility] [address], [place], [address], [place]. tel:[phone] Referring Provider: Bea Ayala, [facility] [address], [place], [address]. tel:[phone] [facility] , [address], [place], [address], [place] tel:[phone] [facility] , No Information 6 Kwaku Figueredo. [facility] [address], [place], [address], [place]. tel:[phone] Family History Family Member Type Diagnosis Age At Onset Mother Problem (finding) Thyroid disorder Paternal grandmother Problem (finding) rheumatoid arth ritis Immunizations Vaccine Date Status Comments COVID-19 Pfizer administered Source: [facility] Unspecified COVID-19 Pfizer administered Source: [facility] Unspecified COVID-19 Pfizer administered Source: [facility] Unspecified Payers Payer name Insurance type Covered republican ID Authormadonna sigala(s) [facility] [id number] Social History Type Description Quantity Date Captured [...]
--- OUTSIDE RECORDS SUMMARY | 2024-07-31 10:11 | XMS_ITS | Continuity of Care Document ---
Author Organization [facility] Address [address] [place] [address] Phone Care Team Providers Care Geotechnical Intern Name Role Phone Dora Castellano MD Unavailable [...] Visit,Est, Low [facility], [address], [place], [place], [id number], [place] tel:[phone] [facility] Arthrodesis status 3 Mehbod Amir. [facility], [address] [place] [address], [id number] , [place]. tel:[phone] Referring Provider: Orion De Leon, [employer] [address] [place] [address], [address]. tel:[phone] Office/Outpat ient Visit,Est, Mod [facility], [address], [place], [place], [id number], [place] tel:[phone] [facility] Encounter for other specified surgical aftercare 2 Mehbod Amir. [facility], [address] [place] [address], [id number] , [place]. tel:[phone] Referring Provider: Orion De Leon [employer] [address] [place] [address], [address]. tel:[phone] [facility], [address], [facility] [place], [id number], [place] tel:[phone] [facility] Encounter for other specified surgical aftercare 2 Mehbod Amir. [facility], [address], [place], [place], [id number] , [place]. tel:[phone] Referring Provider: Orion De Leon, [employer] [facility], [place], [address]. tel:[phone] [facility], [address], [place], [id number], [place] tel:[phone] [facility] No Information 2 Kavitha [place]. [address] [place] [address] [address], [place], [place], [id number] , [place]. [phone] Referring Provider: Orion De Leon [employer] [facility], [place], [address]. tel:[phone] [facility], [address], [place], [place], [id number], [place] tel:[phone] [facility] No Information 2 Mehbod Amir. [facility], [address], [place], [place], [id number] , [place]. tel:[phone] Referring Provider: Orion De Leon [employer] [address] [place] [address], [place], [address]. tel:[phone] Office/Outpat ient Visit,[facility], [facility], [address], [place], [place], [id number], [place] tel:[phone] [facility] No Information 2 Mehbod Amir. [facility], [address], [place], [place], [id number] , [place]. tel:[phone] Referring Provider: Orion De Leon [employer] [address] [place] [address], [place], [address]. tel:[phone] [facility], [address], [place], [id number], [place] tel:[phone] [facility] No Information 2 Gray John. [facility], [address] [place] [address] [address], [place], [id number] , [place]. tel:[phone] Family History Family Member Type Diagnosis Age At Onset No Information Payers Payer name Insurance type Covered republican ID Marvin sigala(s) [facility] [id number] [place] Of [place] [id number] Social History Type Description Quantity Date Captured [...]
[2024-07-31 10:42] LABS: Albumin* 4.2 g/dL (3.3-5.0)
[2024-07-31 10:44] LABS: Basophils Absolute Auto 0.05 K/uL (0.00-0.30); Basophils Percent Auto 0.7 % (0.0-3.0); Eosinophils Absolute Auto 0.24 K/uL (0.00-0.50); Eosinophils Percent Auto 3.5 % (0.0-7.0); Hematocrit 45.1 % (33.0-51.0); Hemoglobin* 14.3 gm/dL (12.0-16.0); Immature Granulocytes Abs Auto 0.01 K/uL (0.00-0.30); Immature Granulocytes Pct Auto 0.1 %; Lymphocytes Percent Auto 19.9 % (20-44); Mean Corpuscular HGB Conc 32 gm/dL (32-36); Mean Corpuscular Hemoglobin 30 pg (26-34); Mean Corpuscular Volume 95 fL (80-100); Monocytes Percent Auto 10.4 % (0.0-11.0); Neutrophils Absolute Auto 4.47 K/uL (1.7-7.0); Neutrophils Percent Auto 65.4 % (42.0-72.0); Platelet Count* 239 K/uL (140-440); RDW Coefficient of Variation % 13.9 % (11.5-15.5); Red Blood Count 4.75 m/uL (4.00-5.20); White Blood Count* 6.84 K/uL (4.50-11.00)
[2024-07-31 10:45] LABS: Alanine Aminotransferase* 27 U/L (4-35); Aspartate Amino Transferase* 38 U/L (12-35); Estimated Glomerular Filt Rate 65 ml/min
[2024-07-31 10:49] LABS: Slide Review Reflex No
== END 2024-07-31 10:09 | disposition home or self-care (01) ==
LOC: NPINS 10:08
PROVIDERS: PCP Family Medicine; Visit Provider Internal Medicine Rheumatology
DX: M05.79 Rheumatoid arthritis with rheumatoid factor of multiple sites without organ or systems involvement (principal); Z79.899 Other long term (current) drug therapy
CPT/HCPCS: 82040; 82565; 84450; 84460; 85025

== ENCOUNTER 2024-10-03 07:30 | Outpatient (CLI) | payer BC, SELFPAY ==
--- OUTSIDE RECORDS SUMMARY | 2024-10-06 20:43 | XMS_ITS | Continuity of Care Document ---
Author Organization [facility] Address [address] [place] [address] Phone Care Team Providers Care Technical Manager [employer] Name Role Phone Bea Ames MD Unavailable [...] times every day 75 MG - Active [place] Thyroid 30 mg tablet 1/2 tablet daily [...] [facility] , [address], [place], [address], [place] tel:[phone] [facility] , No Information 4 Kwaku Figueredo. [facility] [address], [place], [address], [place]. tel:[phone] [facility] , [address], [place], [address], [place] tel:[phone] [facility] , No Information 0 4 Kwaku Figueredo. [facility] [address], [place], [address], [place]. tel:[phone] Office/Outpa tient Visit, Est [facility] , [address], [place], [address], [place] tel:[phone] [facility] , Follow Up of Rheumatoid arthritis (chief complaint) Dry eye syndrome of bilateral lacrimal glandsRA w/ rheumatoid factor of multiple sites w/o organ involvementF ibromyalgiaO ther snf (current) drug therapy 0 4 Kwaku Figueredo. [facility] [address], [place], [address], [place]. tel:[phone] Referring Provider: Bea Ayala, [facility] [address], [place], [address]. tel:[phone] Office/Outpa tient Visit, Est [facility] , [address], [place], [address], [place] tel:[phone] [facility] , Follow Up of Rheumatoid arthritis (chief complaint) Dry eye syndrome of bilateral lacrimal glandsRA w/ rheumatoid factor of multiple sites w/o organ involvementF ibromyalgiaO ther petroleum terminal plant operator (current) drug therapy 3 Kwaku Figueredo. [facility] [address], [place], [address], [place]. tel:[phone] Referring Provider: Bea Ayala, [facility] [address], [place], [address]. tel:[phone] [facility] , [address], [place], [address], [place] tel:[phone] [facility] No Information 3 Kwaku Figueredo. [facility] [address], [place], [address], [place]. tel:[phone] Office/Outpa tient Visit, Est [facility] , [address], [place], [address], [place] tel:[phone] [facility] , Follow Up of Rheumatoid arthritis (chief complaint) Dry eye syndrome of bilateral lacrimal glandsRA w/ rheumatoid factor of multiple sites w/o organ involvementF ibromyalgiaO ther petroleum terminal plant operator (current) drug therapy 3 Kwaku Figueredo. [facility] [address], [place], [address], [place]. tel:[phone] Referring Provider: Bea Ayala, [facility] [address], [place], [address]. tel:[phone] Office/Outpa tient Visit, Est [facility] , [address], [place], [address], [place] tel:[phone] [facility] , Follow Up of Rheumatoid arthritis (chief complaint) Dry eye syndrome of bilateral lacrimal glandsRA w/ rheumatoid factor of multiple sites w/o organ involvementF ibromyalgiaN onspecific elevation of levels of transaminase and lactic acid dehydrogenas e [LDH]Other petroleum terminal plant operator (current) drug therapyLow back pain, unspecifiedP ain in left knee 2 Kwaku Figueredo. [facility] [address], [place], [address], [place]. tel:[phone] Referring Provider: Bea Ayala, [facility] [address], [place], [address]. tel:[phone] Office/Outpa tient Visit, Est [facility] , [address], [place], [address], [place] tel:[phone] [facility] , Follow Up of Rheumatoid arthritis (chief complaint) Dry eye syndrome of bilateral lacrimal glandsRA w/ rheumatoid factor of multiple sites w/o organ involvementF ibromyalgiaN onspecific elevation of levels of transaminase and lactic acid dehydrogenas e [LDH]Other petroleum terminal plant operator (current) drug therapyLow back pain, unspecified 2 Kwaku Figueredo. [facility] [address], [place], [address], [place]. tel:[phone] Referring Provider: Bea Ayala, [facility] [address], [place], [address]. tel:[phone] Office/Outpa tient Visit, Est [facility] , [address], [place], [address], [place] tel:[phone] [facility] , Follow Up of Rheumatoid arthritis (chief complaint) Dry eye syndrome of bilateral lacrimal glandsRA w/ rheumatoid factor of multiple sites w/o organ involvementF ibromyalgiaN onspecific elevation of levels of transaminase and lactic acid dehydrogenas e [LDH]Other snf (current) drug therapyLow back pain, unspecified 2 Kwaku Figueredo. [facility] [address], [place], [address], [place]. tel:[phone] Referring Provider: Bea Ayala, [facility] [address], [place], [address]. tel:[phone] Office/Outpa tient Visit, Est [facility] , [address], [place], [address], [place] tel:[phone] [facility] , Follow Up of Rheumatoid arthritis (chief complaint) RA w/ rheumatoid factor of multiple sites w/o organ involvementF ibromyalgiaN onspecific elevation of levels of transaminase and lactic acid dehydrogenas e [LDH]Other petroleum terminal plant operator (current) drug therapyDry eye syndrome of bilateral lacrimal glandsVitami n D deficiency, unspecified 1 Kwaku Figueredo. [facility] [address], [place], [address], [place]. tel:[phone] Referring Provider: Bea Ayala, [facility] [address], [place], [address]. 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 [facility] [address], [place], [address], [place]. tel:[phone] Referring Provider: Bea Ayala, [facility] [address], [place], [address]. tel:[phone] Office/Outpa tient Visit, Est [facility] , [address], [place], [address], [place] tel:[phone] [facility] , Follow Up of Rheumatoid arthritis (chief complaint) RA w/ rheumatoid factor of multiple sites w/o organ involvementF ibromyalgiaN onspecific elevation of levels of transaminase and lactic acid dehydrogenas e [LDH]Other snf (current) drug therapy 1 Kwaku Figueredo. [facility] [address], [place], [address], [place]. tel:[phone] Referring Provider: Bea Ayala, [facility] [address], [place], [address]. tel:[phone] Office/Outpa tient Visit, Est [facility] , [address], [place], [address], [place] tel:[phone] [facility] , Follow Up of Rheumatoid arthritis (chief complaint) RA w/ rheumatoid factor of multiple sites w/o organ involvementF ibromyalgiaN onspecific elevation of levels of transaminase and lactic acid dehydrogenas e [LDH]Other petroleum terminal plant operator (current) drug therapyPain in right knee 0 Kwaku Figueredo. [facility] [address], [place], [address], [place]. tel:[phone] Referring Provider: Bea Ayala, [facility] [address], [place], [address]. tel:[phone] Office/Outpa tient Visit, Est [facility] , [address], [place], [address], [place] tel:[phone] [facility] , Follow Up of Rheumatoid arthritis (chief complaint) RA w/ rheumatoid factor of multiple sites w/o organ involvementF ibromyalgiaN onspecific elevation of levels of transaminase and lactic acid dehydrogenas e [LDH]Other snf (current) drug therapy Todd- 0-202 0 Kwaku Figueredo. [facility] [address], [place], [address], [place]. tel:[phone] Referring Provider: Bea Ayala, [facility] [address], [place], [address]. tel:[phone] Office/Outpa tient Visit, Est [facility] , [address], [place], [address], [place] tel:[phone] [facility] , Follow Up of Rheumatoid arthritis (chief complaint) RA w/ rheumatoid factor of multiple sites w/o organ involvementF ibromyalgiaN onspecific elevation of levels of transaminase and lactic acid dehydrogenas e [LDH]Other snf (current) drug therapyTenni s elbow of right elbow Jan-0 4-202 0 Kwaku Figueredo. [facility] [address], [place], [address], [place]. tel:[phone] Referring Provider: Bea Ayala, [facility] [address], [place], [address]. tel:[phone] Office/Outpa tient Visit, Est [facility] , [address], [place], [address], [place] tel:[phone] [facility] , Follow Up of Rheumatoid arthritis (chief complaint) RA w/ rheumatoid factor of multiple sites w/o organ involvementF ibromyalgiaN onspecific elevation of levels of transaminase and lactic acid dehydrogenas e [LDH]Other snf (current) drug therapyTenni s elbow of right elbow 9 Kwaku Figueredo. [facility] [address], [place], [address], [place]. tel:[phone] Referring Provider: Bea Ayala, [facility] [address], [place], [address]. 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 [facility] [address], [place], [address], [place]. tel:[phone] Referring Provider: Bea Ayala, [facility] [address], [place], [address]. 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 [facility] [address], [place], [address], [place]. tel:[phone] Referring Provider: Bea Ayala, [facility] [address], [place], [address]. tel:[phone] Office/Outpa tient Visit, Est [facility] , [address], [place], [address], [place] tel:[phone] [facility] , Follow Up of Rheumatoid arthritis (chief complaint) RA w/ rheumatoid factor of multiple sites w/o organ involvementM edial epicondyliti s, right elbowFibromy algiaNonspec ific elevation of levels of transaminase and lactic acid dehydrogenas e [LDH]Other snf (current) drug therapy Ames Bea. [facility] [address], [place], [address], [place]. tel:[phone] Referring Provider: Bea Ayala, [facility] [address], [place], [address]. tel:[phone] Office/Outpa tient Visit, Est [facility] , [address], [place], [address], [place] tel:[phone] [facility] , Follow Up of Rheumatoid arthritis (chief complaint) RA w/ rheumatoid factor of multiple sites w/o organ involvementF ibromyalgiaN onspecific elevation of levels of transaminase and lactic acid dehydrogenas e [LDH]Other petroleum terminal plant operator (current) drug therapyMedia l epicondyliti s, right elbow 8 Kwaku Figueredo. [facility] [address], [place], [address], [place]. tel:[phone] Referring Provider: Bea Ayala, [facility] [address], [place], [address]. tel:[phone] Office/Outpa tient Visit, Est [facility] , [address], [place], [address], [place] tel:[phone] [facility] , Follow Up of Rheumatoid arthritis (chief complaint) RA w/ rheumatoid factor of multiple sites w/o organ involvementF ibromyalgiaN onspecific elevation of levels of transaminase and lactic acid dehydrogenas e [LDH]Other snf (current) drug therapy 8 Kwaku Figueredo. [facility] [address], [place], [address], [place]. tel:[phone] Referring Provider: Bea Ayala, [facility] [address], [place], [address]. tel:[phone] Office/Outpa tient Visit, Est [facility] , [address], [place], [address], [place] tel:[phone] [facility] , Follow Up of Rheumatoid arthritis (chief complaint) RA w/ rheumatoid factor of multiple sites w/o organ involvementN onspecific elevation of levels of transaminase and lactic acid dehydrogenas e [LDH]Other petroleum terminal plant operator (current) drug therapyFibro myalgia 8 Kwaku Figueredo. [facility] [address], [place], [address], [place]. tel:[phone] Referring Provider: Bea Ayala, [facility] [address], [place], [address]. tel:[phone] Office/Outpa tient Visit, Est [facility] , [address], [place], [address], [place] tel:[phone] [facility] , Follow Up of Rheumatoid arthritis (chief complaint) RA w/ rheumatoid factor of multiple sites w/o organ involvementN onspecific elevation of levels of transaminase and lactic acid dehydrogenas e [LDH]Other snf (current) [facility] 8 Kwaku Fariaen. [facility] [address], [place], [address], [place]. tel:[phone] Referring Provider: Bea Ayala, [facility] [address], [place], [address]. tel:[phone] Office/Outpa tient Visit, Est [facility] , [address], [place], [address], [place] tel:[phone] [facility] , Follow Up of Rheumatoid arthritis (chief complaint) RA w/ rheumatoid factor of multiple sites w/o organ involvementN onspecific elevation of levels of transaminase and lactic acid dehydrogenas e [LDH]Other snf (current) drug therapy 7 Kwaku Figueredo. [facility] [address], [place], [address], [place]. tel:[phone] Referring Provider: Bea Ayala, [facility] [address], [place], [address]. tel:[phone] [facility] , [address], [place], [address], [place] tel:[phone] [facility] , No Information 7 Kwaku Figueredo. [facility] [address], [place], [address], [place]. tel:[phone] Office/Outpa tient Visit, Est [facility] , [address], [place], [address], [place] tel:[phone] [facility] , Follow Up of Rheumatoid arthritis (chief complaint) RA w/ rheumatoid factor of multiple sites w/o organ involvementN onspecific elevation of levels of transaminase and lactic acid dehydrogenas e [LDH]Other snf (current) drug therapy Kwaku Figueredo. [facility] [address], [place], [address], [place]. tel:[phone] Referring Provider: Bea Ayala, [facility] [address], [place], [address]. tel:[phone] Office/Outpa tient Visit, Est [facility] , [address], [place], [address], [place] tel:[phone] [facility] , Follow Up of Rheumatoid arthritis (chief complaint) RA w/ rheumatoid factor of multiple sites w/o organ involvementN onspecific elevation of levels of transaminase and lactic acid dehydrogenas e [LDH]Other snf (current) drug therapy Kwaku Figueredo. [facility] [address], [place], [address], [place]. tel:[phone] Referring Provider: Bea Ayala, [facility] [address], [place], [address]. tel:[phone] Office/Outpa tient Visit, Est [facility] , [address], [place], [address], [place] tel:[phone] [facility] , Follow Up of Rheumatoid arthritis (chief complaint) RA w/ rheumatoid factor of multiple sites w/o organ involvementO ther petroleum terminal plant operator (current) drug therapyNonsp ecific elevation of levels of transaminase and lactic acid dehydrogenas e [LDH] 7 Kwaku Figueredo. [facility] [address], [place], [address], [place]. tel:[phone] Referring Provider: Bea Ayala, [facility] [address], [place], [address]. tel:[phone] Office/Outpa tient Visit, Est [facility] , [address], [place], [address], [place] tel:[phone] [facility] , Follow Up of Rheumatoid arthritis (chief complaint) RA w/ rheumatoid factor of multiple sites w/o organ involvementO ther specified RA of wristOther snf (current) drug therapyRash and other nonspecific skin eruption Kwaku Figueredo. [facility] [address], [place], [address], [place]. tel:[phone] Referring Provider: Bea Ayala, [facility] [address], [place], [address]. tel:[phone] Office/Outpa tient Visit, New [facility] , [address], [place], [address], [place] tel:[phone] [facility] , Joint Pain (chief complaint) RA w/ rheumatoid factor of multiple sites w/o organ involvementO ther snf (current) drug therapyOther specified RA of wrist Kwaku Figueredo. [facility] [address], [place], [address], [place]. tel:[phone] Referring Provider: Bea Ayala, [facility] [address], [place], [address]. tel:[phone] [facility] , [address], [place], [address], [place] tel:[phone] [facility] , No Information 6 Kwaku Figueredo. [facility] [address], [place], [address], [place]. tel:[phone] Family History Family Member Type Diagnosis Age At Onset Mother Problem (finding) Thyroid disorder Paternal grandmother Problem (finding) rheumatoid arth ritis Immunizations Vaccine Date Status Comments COVID-19 Pfizer administered Source: Sour ce Unspecified COVID-19 Pfizer administered Source: [facility] Unspecified COVID-19 Pfizer administered Source: [place]our ce Unspecified Payers Payer name Insurance type Covered republican ID Authormadonna sigala(s) [facility] [id number] Social History Type Description Quantity Date Captured [...]
--- OUTSIDE RECORDS SUMMARY | 2024-10-06 20:43 | XMS_ITS | Clinical Summary ---
Author Organization [facility] Address [place], [place] [address] Care Team Providers Care Pest Control Worker Name Role Phone Mercedez Cuhrch MD Primary Care Provider + Allergies Active [...] for age 45-75 2010 COVID-19 vaccine series (2023- season) 2024 09/10/2022, 05/12/2022, 07/16/2021 Influenza for age 50-64 07/23/2024 Pap test for age 21-65 07/02/2026 , 07/02/2023, 08/20/2017, Additional history exists Pneumococcal series for age 6-64 Aged Out No longer eligible based on patient's age to complete this topic Medical Devices Implanted Type Area Rehab Physician Device Identifier Shelf Expiration Date Model / Serial / Lot [id number] 1-4mm 60cc Medtronic Fine Canclls Freeze Dried Implanted:Qty: 1 on 06/30/2022 by Dora Castellano MD at [facility] Explanted:at [facility] (Quantity not on file) N/A: Spine Medtronic Spine/Ortho 04/17/2026 [id number] / [id number] / Spacer Lmbr [id number] Zyston Convex Stra Tlif - [id number] Implanted:Qty: 1 on 06/30/2022 by Dora Castellano MD at [facility] N/A: Spine [employer] [id number] / / [id number] Spacer Lmbr [id number] Zyston Convex Stra Tlif - [id number] Implanted:Qty: 1 on 06/30/2022 by Dora Castellano MD at [facility] N/A: Spine [employer] 02/01/2030 [id number] / / [id number] Set Screw Lmbr 5.5-6mm Vitality Torque - [id number] Implanted:Qty: 6 on 06/30/2022 by Dora Castellano MD at [facility] N/A: Spine [employer] Spine [id number] 01 / / Cisco Lmbr 70x5.5mm Vitality Cvd Titar - [id number] Implanted:Qty: 2 on 06/30/2022 by Dora Castellano MD at [facility] N/A: Spine [employer] Spine [id number] 11 / / Screw 6.5x45mm Implanted:Qty: 5 on 06/30/2022 by Dora Castellano MD at [facility] N/A: Spine [id number] / / Description:SCREW 6.5X45MM Screw 5.5x45mm Implanted:Qty: 1 on 06/30/2022 by Dora Castellano MD at [facility] N/A: Spine [id number] / / Description:SCREW 5.5X45MM [id number] e Matrix 6cc Adolfo Dbf Putty Dbm Implanted:Qty: 1 on 06/30/2022 by Dora Castellano MD at [facility] Explanted:at [facility] (Quantity not on file) N/A: Spine Medtronic Spine/Ortho 06/04/2024 [id number] / [id number] / Procedures Procedure Name Priority Date/Time Associated Diagnosis Comments HPV HIGH RISK Routine 07/02/2023 10:49 AM CDT from Last 3 Months or Most Recently Relevant to Health Maintenance Results * HPV HIGH RISK (07/02/2023 10:49 AM CDT) TYPE 16 Negative Negative 07/06/2023 11:43 AM CDT [facility] TYPE 18 Negative Negative 07/06/2023 11:43 AM CDT [facility] OTHER HIGH RISK TYPES Negative Negative 07/06/2023 11:43 AM CDT [facility] Other (Cervical/Vagina l) 07/02/2023 10:49 AM CDT 07/04/2023 11:06 AM CDT [facility] - 07/06/2023 11:43 AM CDT HPV types 16, 18, 31, 33, 35, 39, 45, 51, 52, 56, 58, 59, 66 and 68 DNA were undetectable or below the pre-set threshold. Methodology: Bird Len 4800 HPV Test Mercedez Church MD [facility] [address] [place] [address], from Last 3 Months or Most Recently Relevant to Health Maintenance Advance Directives * Full Code (Latest Code Status on File) Date Activated Date Inactivated Comments 06/30/2022 11:20 AM 07/02/2022 6:22 PM Question Answer Comments Code Status Discussion: Unable to Assess Preferences, Provider to review later Care Teams Pest Control Worker Relationship Specialty Start Date End Date Mercedez Church MD [address] [place] [address] PCP - General Family Practice 01/22/22
--- OUTSIDE RECORDS SUMMARY | 2024-10-06 20:43 | XMS_ITS | Continuity of Care Document ---
Author Organization [facility] Address [address] [place] [address] Phone Care Team Providers Care Fire Assistant Name Role Phone Dora Castellano MD Unavailable [...] Visit,Est, Low [facility], [address], [place], [place], [id number], [place] tel:[phone] [facility] Arthrodesis status 3 Mehbod Amir. [facility], [address] [place] [address], [id number] , [place]. tel:[phone] Referring Provider: Orion De Leon, blabfeed [address] [place] [address], [address]. tel:[phone] Office/Outpat ient Visit,Est, Mod [facility], [address], [place], [place], [id number], [place] tel:[phone] [facility] Encounter for other specified surgical aftercare 2 Mehbod Amir. [facility], [address] [place] [address], [id number] , [place]. tel:[phone] Referring Provider: Orion De Leon blabfeed [address] [place] [address], [address]. tel:[phone] [facility], [address], [facility] [place], [id number], [place] tel:[phone] [facility] Encounter for other specified surgical aftercare 2 Mehbod Amir. [facility], [address], [place], [place], [id number] , [place]. tel:[phone] Referring Provider: Orion De Leon, blabfeed [facility], [place], [address]. tel:[phone] [facility], [address], [place], [id number], [place] tel:[phone] [facility] No Information 2 Kavitha Angeles. [address] [place] [address] [address], [place], [place], [id number] , [place]. [phone] Referring Provider: Orion De Leon blabfeed [facility], [place], [address]. tel:[phone] [facility], [address], [place], [place], [id number], [place] tel:[phone] [facility] No Information 2 Mehbod Amir. [facility], [address], [place], [place], [id number] , [place]. tel:[phone] Referring Provider: Orion De Leon blabfeed [address] [place] [address], [place], [address]. tel:[phone] Office/Outpat ient Visit,[facility], [facility], [address], [place], [place], [id number], [place] tel:[phone] [facility] No Information 2 Mehbod Amir. [facility], [address], [place], [place], [id number] , [place]. tel:[phone] Referring Provider: Orion De Leon blabfeed [address] [place] [address], [place], [address]. tel:[phone] [facility], [address], [place], [id number], [place] tel:[phone] [facility] No Information 2 Gray John. [facility], [address] [place] [address] [address], [place], [id number] , [place]. tel:[phone] Family History Family Member Type Diagnosis Age At Onset No Information Payers Payer name Insurance type Covered libertarian ID Marvin sigala(s) [facility] [id number] Out Of State [id number] Social History Type Description Quantity Date Captured [...]
== END 2024-10-03 07:31 | disposition home or self-care (01) ==
LOC: NFLDREF 10-06 20:42
PROVIDERS: PCP Family Medicine; Referring Provider Family Medicine; Visit Provider Family Medicine
DX: E03.9 Hypothyroidism, unspecified (principal)
CPT/HCPCS: 84443

== ENCOUNTER 2024-11-01 14:34 | Outpatient (CLI) | payer BC, SELFPAY ==
--- NOTE | 2024-11-01 15:00 | CRLHL7_ITS ---
For Patients: As a result of the 21st Century Cures Act, medical imaging exams and procedure reports are released immediately into your electronic medical record. You may view this report before your referring provider. If you have questions, please contact your health care provider. INDICATION: Headaches. Right-sided conductive hearing loss. TECHNIQUE: CT of the temporal bones without contrast. Coronal and axial small field of view reconstructions of both temporal bones are included. COMPARISON: None. FINDINGS: Right temporal bone: The external auditory canal is patent. The tympanic membrane is not thickened. The middle ear cleft is clear. No material is present within the sinus tympani. The scutum is not eroded. The ossicles are normal in appearance and location with no erosions or dislocation. The otic capsule is normal in appearance.No evidence of fenestral or retrofenestral otospongiosis. No sclerosis within the labyrinthine canal. The vestibule and semicircular canals are normal in morphology with no evidence of semicircular canal dehiscence. Normal cochlear morphology with appropriate number of turns. Vestibular aqueduct is normal in size. Facial nerve canal is intact and normal in course/caliber. Petrous apex is normal. Mastoid air cells are clear. The carotid canal and jugular foramen are normal. Left temporal bone: The external auditory canal is patent. The tympanic membrane is not thickened. The middle ear cleft is clear. No material is present within the sinus tympani. The scutum is not eroded. The ossicles are normal in appearance and location with no erosions or dislocation. The otic capsule is normal in appearance. No evidence of fenestral or retrofenestral otospongiosis. No sclerosis within the labyrinthine canal. The vestibule and semicircular canals are normal in morphology with no evidence of semicircular canal dehiscence. Normal cochlear morphology with appropriate number of turns. Vestibular aqueduct is normal in size. Facial nerve canal is intact and normal in course/caliber. Petrous apex is normal. Mastoid air cells are clear. The carotid canal and jugular foramen are normal. No fracture or significant degenerative change, lytic or blastic process is demonstrated in the skull base or temporomandibular joints. The imaged intracranial structures are normal in appearance. Orbits are normal. Imaged soft tissue structures are normal in appearance. Moderate right maxillary sinus mucosal thickening and air-fluid level. Occlusion of the right maxillary sinus drainage pathway. Complete opacification of the right frontal sinus. IMPRESSION: 1. No abnormalities involving the temporal bones on either side. 2. High-grade right maxillary sinus mucosal thickening and air-fluid level. Occlusion of the right maxillary sinus drainage pathway. Please note that all CT scans at this facility use dose modulation, iterative reconstruction, and/or weight-based dosing when appropriate to reduce radiation dose to as low as reasonably achievable. Dictated by Jacky Plascencia MD @ 11/03/2024 3:32:16 PM (Electronically Signed)
--- NOTE | 2024-11-01 15:30 | CRLHL7_ITS ---
For Patients: As a result of the Century Cures Act, medical imaging exams and procedure reports are released immediately into your electronic medical record. You may view this report before your referring provider. If you have questions, please contact your health care provider. Indication: Headache, sinus pressure Technique: Performed without IV contrast Comparison: None available Findings: Frontal sinuses: Near complete opacification of the right frontal sinus. Left frontal sinus is clear. Ethmoid sinuses: Partial opacification of 1 of the right anterior ethmoid air cells. Left ethmoid sinus clear. Maxillary sinuses: Near complete opacification of the right maxillary sinus with obstruction of the sinus drainage pathway. Mucous is present within the inferior left maxillary sinus. The left-sided sinus drainage pathway is patent. Sphenoid sinuses: Clear, including both sphenoethmoidal recesses. Nasal Cavity: Minimal curvature of the posterior nasal septum noted. No evidence of nasal polyps. No TMJ abnormalities identified. The visualized portions of the orbits, intracranial contents and upper soft tissue neck are grossly negative. Impression: 1. Severe right frontal and right maxillary sinus disease. 2. Minimal posterior curvature of the nasal septum. Please note that all CT scans at this facility use dose modulation, iterative reconstruction, and/or weight-based dosing when appropriate to reduce radiation dose to as low as reasonably achievable. Dictated by Emmanuel Castle MD @ 11/03/2024 1:32:13 PM (Electronically Signed)
== END 2024-11-01 14:35 | disposition home or self-care (01) ==
LOC: CT 14:34
PROVIDERS: PCP Family Medicine; Visit Provider Otolaryngology
DX: R51.9 Headache, unspecified (principal); J32.0 Chronic maxillary sinusitis; J34.2 Deviated nasal septum; H90.11 Conductive hearing loss, unilateral, right ear, with unrestricted hearing on the contralateral side
CPT/HCPCS: 70480; 70486

== ENCOUNTER 2025-01-02 07:30 | Outpatient (CLI) | payer BC, SELFPAY | END 2025-01-02 07:31 | disposition home or self-care (01) | LOC: NFLDREF 01-06 01:11 | PROVIDERS: PCP Family Medicine; Referring Provider Family Medicine; Visit Provider Family Medicine | DX: E78.5 Hyperlipidemia, unspecified (principal); E03.9 Hypothyroidism, unspecified | CPT/HCPCS: 80061; 84439; 84443; 84480 ==

== ENCOUNTER 2025-01-12 12:27 | Day surgery (SDC) | payer BC, SELFPAY ==
[2025-01-12] VITALS (11 sets, daily range): BP systolic 108–155; BP diastolic 57–105; PULSE 56–82; RESP 14–20; TEMP 36.3–36.4; O2SAT 93–99; BMI 29.5
--- OUTSIDE RECORDS SUMMARY | 2025-01-12 12:30 | XMS_ITS | Continuity of Care Document ---
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 [facility] [place], [address] [place] [address], [id number] , [place]. tel:[phone] Referring Provider: Orion De Leon, Cashier Live [address] [place] [address], [address]. tel:[phone] Office/Outpat ient Visit,Est, Mod [facility], [address], [place], [place], [id number], [place] tel:[phone] [facility] Encounter for other specified surgical aftercare 2 Mehbod Amir. [facility] [place], [address] [place] [address], [id number] , [place]. tel:[phone] Referring Provider: Orion De Leon Cashier Live [address] [place] [address], [address]. tel:[phone] [facility], [address], [facility], [id number], [place] tel:[phone] [facility] Encounter for other specified surgical aftercare 2 Mehbod Amir. [facility] [place], [address], [place], [place], [id number] , [place]. tel:[phone] Referring Provider: Orion De Leon, Cashier Live Cong [facility], [place], [address]. tel:[phone] [facility], [address], [place], [place], [id number], [place] tel:[phone] [facility] No Information 2 Kavitha Angeles. [address] [place] [address] [address], [place], [place], [id number] , [place]. [phone] Referring Provider: Orion De Leon Cashier Live [address] [facility], [place], [address]. tel:[phone] [facility], [address], [place], [place], [id number], [place] tel:[phone] [facility] No Information 2 Mehbod Amir. [facility] [place], [address], [place], [place], [id number] , [place]. tel:[phone] Referring Provider: Orion De Leon Cashier Live [address] [place] [address], [place], [address]. tel:[phone] Office/Outpat ient Visit,[facility], [facility], [address], [place], [place], [id number], [place] tel:[phone] [facility] No Information 2 Mehbod Amir. [facility] [place], [address], [place], [place], [id number] , [place]. tel:[phone] Referring Provider: Oroin De Leon Cashier Live [address] [place] [address], [place], [address]. tel:[phone] [facility], [address], [place], [id number], [place] tel:[phone] [facility] No Information 2 Gray John. [facility], [address] [place] [address] [address], [place], [id number] , [place]. tel:[phone] Family History Family Member Type Diagnosis Age At Onset No Information Payers Payer name Insurance type Covered constitution party ID Marvin sigala(s) [facility] [id number] [place] [id number] Social History Type Description Quantity Date Captured [...]
--- OUTSIDE RECORDS SUMMARY | 2025-01-12 12:30 | XMS_ITS | Clinical Summary ---
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 Role Phone Print, Print Unavailable Conditions or Problems Problem Name Problem Code Onset Date Status Entry Date Provider Comment Standard Description Annotate Tension headache 950383852 (SNOMED CT) Active Ernesto Vázquez MD Tension-type headache Migraine headaches 44302005 (SNOMED CT) Active Ernesto Vázquez MD Migraine Neck pain 43857451 (SNOMED CT) Active Ernesto Vázquez MD Neck pain Medications Medication Instructions Start Date Stop Date Generic Name NDC Provider NADOLOL 80 MG TABS nadolol [id number] Ernesto Vázquez MD PROPRANOLOL HCL 80 MG TABS Take 1 tablet by mouth twice a day TAKE 1 TABLET BY MOUTH TWICE DAILY propranolol 98582311078 Ernesto Vázquez MD PREGABALIN 100 MG CAPS pregabalin 95733417024 Ernesto Vázquez MD ESCITALOPRAM OXALATE 20 MG TABS escitalopram oxalate 30493680714 Ernesto Vázquez MD EPINEPHRINE 0.3 MG/0.3ML SOAJ epinephrine 26553176816 Ernesto Vázquez MD METHOTREXATE SODIUM 2.5 MG TABS methotrexate sodium 51197393092 Ernesto Vázquez MD ARMOUR THYROID 30 MG TABS thyroid (pork) 35831599464 Ernesto Vázquez MD NADOLOL 80 MG TABS nadolol 89347653779 Ernesto Vázquez MD LEVOTHYROXINE SODIUM 112 MCG TABS levothyroxine 66244797417 Ernesto Vázquez MD RIZATRIPTAN BENZOATE 10 MG TABS rizatriptan 36751101039 Ernesto Vázquez MD FOLIC ACID 1 MG TABS folic acid 74802567469 Ernesto Vázquez MD Medications Administered No information available. 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 MEDS REVIEW Done Documenta tion of current medications (procedure) Plan of Care Type Date Detail Appointment 08:30 AM Mandi Peters PA-C, [address], [address], [place], [address], Pending order Follow up TOSHA Pending order Follow up TOSHA Pending order Patient Instruct ions Procedures Code Procedure Name Date Entry Date [id number] Documentation of current medicatio ns [id number] Occipital nerve bloc k (Greater ONB) bilateral CPT-3730749 Lesser ONB/3rd ONB/Auricular/Preauricular,bilateral CPT-89446 Trigger point inj (3+ musc) ORDERS Patient Instructions Vital Signs No information available. Immunizations No information available. Advance Directives No information available.
--- OUTSIDE RECORDS SUMMARY | 2025-01-12 12:30 | XMS_ITS | Continuity of Care Document ---
Author Organization [facility] Address [address] [place] [address] Phone Care Team Providers Care Marketing Researcher Name Role Phone Bea Ames MD Unavailable Unavailable Allergies, Adverse Reactions, Alerts Substance Reaction Status Criticality HYDROXYCHLOROQUINE SULFATE Pruritic rash Active No Information Medications Medication Instructions Dosage Effective Dates (start - stop) Status Comments methotrexate sodium 2.5 mg tablet TAKE 5 TABLETS BY MOUTH EVERY WEEK - Active folic acid 1 mg tablet take 2 tablet by oral route every day 2 MG - Active propranolol 80 mg tablet take 1 tablet by oral route every day 80 MG - Active Synthroid 112 mcg tablet take 1 tablet by oral route every day 112 MCG - Active Lexapro 10 mg tablet take 1.5 tablet by oral route every day - Active Lyrica 75 mg capsule take 1 capsule by oral route 2 times every day 75 MG - Active VITAMIN D3 (unknown strength) [...] MOUTH EVERY WEEK - No Longer Active FOLIC ACID 1 MG TABLET TAKE 2 TABLETS BY MOUTH EVERY DAY 2 MG - No Longer Active [place] Thyroid 30 mg tablet 1/2 tablet daily - No Longer Active nadolol 80 mg tablet take 1 tablet by oral route every day 80 MG - No Longer Active Procedures Procedure Date Office/Outpatient Visit, Est Complex e/m visit add on Routine Venipuncture Rbc Sed Rate, Automated Assay [...] XRay Exam Of Hand 2v Surgical Trays Results Test Name Date and Time Measure Units Reference Range Abnormal Flag Status Comments Panel Description: ESR Final ESR 15:18:00 7 mm/hr 0-25 Final Panel Description: CBC 5 part diff Final Neutrophils# 15:18:00 3.31 K/uL 2.00-7.50 Final Neutrophil % 15:18:00 47.50 % 0.00-99.00 Final Eosinophil # 15:18:00 0.36 K/uL 0.00-0.50 Final Eosinophil % 15:18:00 5.10 % 0.00-7.00 Final Basophil # 15:18:00 0.06 K/uL 0.00-0.20 Final Basophil % 15:18:00 0.80 % 0.00-99.00 Final WBC 15:18:00 7.0 K/uL 4.0-10.0 Final RBC 15:18:00 4.28 M/uL 3.80-5.80 Final Hemoglobin 15:18:00 13.8 g/dL 11.5-16.0 Final Hematocrit 15:18:00 41.2 % 37.0-47.0 Final MCV 15:18:00 96 fL 80-100 Final MCH 15:18:00 32.3 pg 27.0-32.0 H Final MCHC 15:18:00 33.5 g/dL 32.0-36.0 Final RDW 15:18:00 13.3 % 11.0-16.0 Final Platelet Count 15:18:00 291 K/uL 150-500 Final MPV 15:18:00 7.0 fL 6.0-11.0 Final Lymphocyte% 15:18:00 36.90 % 25.00-50.00 Final Lymphocyte # 15:18:00 2.6 K/uL 1.0-4.0 Final Monocytes # 15:18:00 0.68 K/uL 0.20-1.00 Final Monocytes % 15:18:00 9.70 % 2.00-10.00 Final Panel Description: DMARD Final AST 15:46:00 38 U/L 10-35 H Final ALT 15:46:00 39 IU/L 6-32 H Final Creatinine 15:46:00 0.900 mg/dL 0.500-1.050 Final ALB 15:46:00 4.2 g/dL 3.6-5.1 Final GFR 15:46:00 73.6 mL/min/1. 73 m2 Final Reported eGFR is based the CKD-EPI 2020 equation that does not use a race coefficient. Panel Description: CRP Final CRP 15:46:00 0.23 MG/DL 0.00-0.80 Final Advance Directives Directive Yes / No Effective Date File Name No Information Encounters Encounter Description Practice Location Reason(s) For Visit Diagnoses Date Provider Providers Copied on Encounter Office/Outpa tient Visit, Est [facility] , [address], [place], [address], [place] tel:[phone] [facility] , Follow Up of Rheumatoid arthritis (chief complaint) Dry eye syndrome of bilateral lacrimal glandsRA w/ rheumatoid factor of multiple sites w/o organ involvementF ibromyalgiaO ther senior living (current) drug therapyZoste r Oct- 4 Kwaku Figueredo. [facility] [address], [place], [address], [place]. tel:[phone] Referring Provider: Bea Ayala, [facility] [address], [place], [address]. tel:[phone] [facility] , [address], [place], [address], [place] tel:[phone] [facility] , No Information 4 Kwaku Figueredo. [facility] [address], [place], [address], [place]. tel:[phone] Office/Outpa tient Visit, Est [facility] , [address], [place], [address], [place] tel:[phone] [facility] , Follow Up of Rheumatoid arthritis (chief complaint) Dry eye syndrome of bilateral lacrimal glandsRA w/ rheumatoid factor of multiple sites w/o organ involvementF ibromyalgiaO ther exterminator termite (current) drug therapy Apr- 4 Kwaku Figueredo. [facility] [address], [place], [address], [place]. tel:[phone] Referring Provider: Bea Ayala, [facility] [address], [place], [address]. tel:[phone] Office/Outpa tient Visit, Est [facility] , [address], [place], [address], [place] tel:[phone] [facility] , Follow Up of Rheumatoid arthritis (chief complaint) Dry eye syndrome of bilateral lacrimal glandsRA w/ rheumatoid factor of multiple sites w/o organ involvementF ibromyalgiaO ther exterminator termite (current) drug therapy 3 Kwaku Figueredo. [facility] [address], [place], [address], [place]. tel:[phone] Referring Provider: Bea Ayala, [facility] [address], [place], [address]. tel:[phone] [facility] , [address], [place], [address], [place] tel:[phone] [facility] No Information 3 Kwaku Figueredo. [facility] [address], [place], [address], [place]. tel:[phone] Office/Outpa tient Visit, Est [facility] , [address], [place], [address], [place] tel:[phone] [facility] , Follow Up of Rheumatoid arthritis (chief complaint) Dry eye syndrome of bilateral lacrimal glandsRA w/ rheumatoid factor of multiple sites w/o organ involvementF ibromyalgiaO ther exterminator termite (current) drug therapy 3 Kwaku Figueredo. [facility] [address], [place], [address], [place]. tel:[phone] Referring Provider: Bea Ayala, [facility] [address], [place], [address]. tel:[phone] Office/Outpa tient Visit, Est [facility] , [address], [place], [address], [place] tel:[phone] [facility] , Follow Up of Rheumatoid arthritis (chief complaint) Dry eye syndrome of bilateral lacrimal glandsRA w/ rheumatoid factor of multiple sites w/o organ involvementF ibromyalgiaN onspecific elevation of levels of transaminase and lactic acid dehydrogenas e [LDH]Other senior living (current) drug therapyLow back pain, unspecifiedP ain in left knee 2 Kwaku Figueredo. [facility] [address], [place], [address], [place]. tel:[phone] Referring Provider: Bea Ayala, [facility] [address], [place], [address]. tel:[phone] Office/Outpa tient Visit, Est [facility] , [address], [place], [address], [place] tel:[phone] [facility] , Follow Up of Rheumatoid arthritis (chief complaint) Dry eye syndrome of bilateral lacrimal glandsRA w/ rheumatoid factor of multiple sites w/o organ involvementF ibromyalgiaN onspecific elevation of levels of transaminase and lactic acid dehydrogenas e [LDH]Other exterminator termite (current) drug therapyLow back pain, unspecified 2 Kwaku Figueredo. [facility] [address], [place], [address], [place]. tel:[phone] Referring Provider: Bea Ayala, [facility] [address], [place], [address]. tel:[phone] Office/Outpa tient Visit, Est [facility] , [address], [place], [address], [place] tel:[phone] [facility] , Follow Up of Rheumatoid arthritis (chief complaint) Dry eye syndrome of bilateral lacrimal glandsRA w/ rheumatoid factor of multiple sites w/o organ involvementF ibromyalgiaN onspecific elevation of levels of transaminase and lactic acid dehydrogenas e [LDH]Other senior living (current) drug therapyLow back pain, unspecified 2 Kwaku Figueredo. [facility] [address], [place], [address], [place]. tel:[phone] Referring Provider: Bea Ayala, [facility] [address], [place], [address]. tel:[phone] Office/Outpa tient Visit, Est [facility] , [address], [place], [address], [place] tel:[phone] [facility] , Follow [...] [facility]., [address], [place], [address], [place]. tel:[phone] Referring Provider: Bea Ayala, [facility] [address], [place], [address]. tel:[phone] Office/Outpa tient Visit, Est [facility] , [address], [place], [address], [place] tel:[phone] [facility] , Follow Up of Rheumatoid arthritis (chief complaint) RA w/ rheumatoid factor of multiple sites w/o organ involvementF ibromyalgiaN onspecific elevation of levels of transaminase and lactic acid dehydrogenas e [LDH]Other senior living (current) drug therapy 1 Kwaku Figueredo. [facility] [address], [place], [address], [place]. tel:[phone] Referring Provider: Bea Ayala, [facility] [address], [place], [address]. tel:[phone] Office/Outpa tient Visit, Est [facility] , [address], [place], [address], [place] tel:[phone] [facility] , Follow Up of Rheumatoid arthritis (chief complaint) RA w/ rheumatoid factor of multiple sites w/o organ involvementF ibromyalgiaN onspecific elevation of levels of transaminase and lactic acid dehydrogenas e [LDH]Other exterminator termite (current) drug therapy 1 Kwaku Figueredo. [facility] [address], [place], [address], [place]. tel:[phone] Referring Provider: Bea Ayala, [facility] [address], [place], [address]. tel:[phone] Office/Outpa tient Visit, Est [facility] , [address], [place], [address], [place] tel:[phone] [facility] , Follow Up of Rheumatoid arthritis (chief complaint) RA w/ rheumatoid factor of multiple sites w/o organ involvementF ibromyalgiaN onspecific elevation of levels of transaminase and lactic acid dehydrogenas e [LDH]Other exterminator termite (current) drug therapyPain in right knee 0 Kwaku Figueredo. [facility] [address], [place], [address], [place]. tel:[phone] Referring Provider: Bea Ayala, [facility] [address], [place], [address]. tel:[phone] Office/Outpa tient Visit, Est [facility] , [address], [place], [address], [place] tel:[phone] [facility] , Follow Up of Rheumatoid arthritis (chief complaint) RA w/ rheumatoid factor of multiple sites w/o organ involvementF ibromyalgiaN onspecific elevation of levels of transaminase and lactic acid dehydrogenas e [LDH]Other exterminator termite (current) drug therapy Todd- 0-202 0 Kwaku Figueredo. [facility] [address], [place], [address], [place]. tel:[phone] Referring Provider: Bea Ayala, [facility] [address], [place], [address]. tel:[phone] Office/Outpa tient Visit, Est [facility] , [address], [place], [address], [place] tel:[phone] [facility] , Follow Up of Rheumatoid arthritis (chief complaint) RA w/ rheumatoid factor of multiple sites w/o organ involvementF ibromyalgiaN onspecific elevation of levels of transaminase and lactic acid dehydrogenas e [LDH]Other senior living (current) drug therapyTenni s elbow of right elbow Jan-0 4202 0 Kwaku Figueredo. [facility] [address], [place], [address], [place]. tel:[phone] Referring Provider: Bea Ayala, [facility] [address], [place], [address]. tel:[phone] Office/Outpa tient Visit, Est [facility] , [address], [place], [address], [place] tel:[phone] [facility] , Follow Up of Rheumatoid arthritis (chief complaint) RA w/ rheumatoid factor of multiple sites w/o organ involvementF ibromyalgiaN onspecific elevation of levels of transaminase and lactic acid dehydrogenas e [LDH]Other senior living (current) drug therapyTenni s elbow of right elbow Oct- 9 Kwaku Figueredo. [facility] [address], [place], [address], [place]. tel:[phone] Referring Provider: Bea Ayala, [facility] [address], [place], [address]. tel:[phone] Office/Outpa tient Visit, Est [facility] , [address], [place], [address], [place] tel:[phone] [facility] , Follow Up of Rheumatoid arthritis (chief complaint) RA w/ rheumatoid factor of multiple sites w/o organ involvementF ibromyalgiaN onspecific elevation of levels of transaminase and lactic acid dehydrogenas e [LDH]Other senior living (current) drug therapy 9 Kwaku Figueredo. [facility] [address], [place], [address], [place]. tel:[phone] Referring Provider: Bea Ayala, [facility] [address], [place], [address]. tel:[phone] Office/Outpa tient Visit, Est [facility] , [address], [place], [address], [place] tel:[phone] [facility] , Follow Up of Rheumatoid arthritis (chief complaint) RA w/ rheumatoid factor of multiple sites w/o organ involvementF ibromyalgiaN onspecific elevation of levels of transaminase and lactic acid dehydrogenas e [LDH]Other exterminator termite (current) drug therapy Kwaku Figueredo. [facility] [address], [place], [address], [place]. tel:[phone] Referring Provider: Bea Ayala, [facility] [address], [place], [address]. tel:[phone] Office/Outpa tient Visit, Est [facility] , [address], [place], [address], [place] tel:[phone] [facility] , Follow Up of Rheumatoid arthritis (chief complaint) RA w/ rheumatoid factor of multiple sites w/o organ involvementM edial epicondyliti s, right elbowFibromy algiaNonspec ific elevation of levels of transaminase and lactic acid dehydrogenas e [LDH]Other senior living (current) drug therapy Kwaku Figueredo. [facility] [address], [place], [address], [place]. tel:[phone] Referring Provider: Bea Ayala, [facility] [address], [place], [address]. tel:[phone] Office/Outpa tient Visit, Est [facility] , [address], [place], [address], [place] tel:[phone] [facility] , Follow Up of Rheumatoid arthritis (chief complaint) RA w/ rheumatoid factor of multiple sites w/o organ involvementF ibromyalgiaN onspecific elevation of levels of transaminase and lactic acid dehydrogenas e [LDH]Other exterminator termite (current) drug therapyMedia l epicondyliti s, right elbow 8 Kwaku Figueredo. [facility] [address], [place], [address], [place]. tel:[phone] Referring Provider: Bea Ayala, [facility] [address], [place], [address]. tel:[phone] Office/Outpa tient Visit, Est [facility] , [address], [place], [address], [place] tel:[phone] [facility] , Follow Up of Rheumatoid arthritis (chief complaint) RA w/ rheumatoid factor of multiple sites w/o organ involvementF ibromyalgiaN onspecific elevation of levels of transaminase and lactic acid dehydrogenas e [LDH]Other exterminator termite (current) drug therapy 8 Kwaku Figueredo. [facility] [address], [place], [address], [place]. tel:[phone] Referring Provider: Bea Ayala, [facility] [address], [place], [address]. tel:[phone] Office/Outpa tient Visit, Est [facility] , [address], [place], [address], [place] tel:[phone] [facility] , Follow Up of Rheumatoid arthritis (chief complaint) RA w/ rheumatoid factor of multiple sites w/o organ involvementN onspecific elevation of levels of transaminase and lactic acid dehydrogenas e [LDH]Other exterminator termite (current) drug therapyFibro myalgia 8 Kwaku Figueredo. [facility] [address], [place], [address], [place]. tel:[phone] Referring Provider: Bea Ayala, [facility] [address], [place], [address]. tel:[phone] Office/Outpa tient Visit, Est [facility] , [address], [place], [address], [place] tel:[phone] [facility] , Follow Up of Rheumatoid arthritis (chief complaint) RA w/ rheumatoid factor of multiple sites w/o organ involvementN onspecific elevation of levels of transaminase and lactic acid dehydrogenas e [LDH]Other [facility] (current) [facility]Well[facility] 8 Kwaku Figueredo. [facility] [address], [place], [address], [place]. tel:[phone] Referring Provider: Bea Ayala, [facility] [address], [place], [address]. tel:[phone] Office/Outpa tient Visit, Est [facility] , [address], [place], [address], [place] tel:[phone] [facility] , Follow Up of Rheumatoid arthritis (chief complaint) RA w/ rheumatoid factor of multiple sites w/o organ involvementN onspecific elevation of levels of transaminase and lactic acid dehydrogenas e [LDH]Other exterminator termite (current) drug therapy 7 Kwaku Fariaen. [facility] [address], [place], [address], [place]. tel:[phone] Referring Provider: Bea Ayala, [facility] [address], [place], [address]. tel:[phone] [facility] , [address], [place], [address], [place] tel:[phone] [facility] , No Information 7 Kawku Figueredo. [facility] [address], [place], [address], [place]. tel:[phone] Office/Outpa tient Visit, Est [facility] , [address], [place], [address], [place] tel:[phone] [facility] , Follow Up of Rheumatoid arthritis (chief complaint) RA w/ rheumatoid factor of multiple sites w/o organ involvementN onspecific elevation of levels of transaminase and lactic acid dehydrogenas e [LDH]Other senior living (current) drug therapy Kwaku Figueredo. [facility] [address], [place], [address], [place]. tel:[phone] Referring Provider: Bea Ayala, [facility] [address], [place], [address]. tel:[phone] Office/Outpa tient Visit, Est [facility] , [address], [place], [address], [place] tel:[phone] [facility] , Follow Up of Rheumatoid arthritis (chief complaint) RA w/ rheumatoid factor of multiple sites w/o organ involvementN onspecific elevation of levels of transaminase and lactic acid dehydrogenas e [LDH]Other senior living (current) drug therapy 7 Kwaku Figueredo. [facility] [address], [place], [address], [place]. tel:[phone] Referring Provider: Bea Ayala, [facility] [address], [place], [address]. tel:[phone] Office/Outpa tient Visit, Est [facility] , [address], [place], [address], [place] tel:[phone] [facility] , Follow Up of Rheumatoid arthritis (chief complaint) RA w/ rheumatoid factor of multiple sites w/o organ involvementO ther senior living (current) drug therapyNonsp ecific elevation of levels of transaminase and lactic acid dehydrogenas e [LDH] Kwaku Figueredo. [facility] [address], [place], [address], [place]. tel:[phone] Referring Provider: Bea Ayala, [facility] [address], [place], [address]. tel:[phone] Office/Outpa tient Visit, Est [facility] , [address], [place], [address], [place] tel:[phone] [facility] , Follow Up of Rheumatoid arthritis (chief complaint) RA w/ rheumatoid factor of multiple sites w/o organ involvementO ther specified RA of wristOther exterminator termite (current) drug therapyRash and other nonspecific skin eruption Ames Bea. [facility] [address], [place], [address], [place]. tel:[phone] Referring Provider: Bea Ayala, [facility] [address], [place], [address]. tel:[phone] Office/Outpa tient Visit, New [facility] , [address], [place], [address], [place] tel:[phone] [facility] , Joint Pain (chief complaint) RA w/ rheumatoid factor of multiple sites w/o organ involvementO ther exterminator termite (current) drug therapyOther specified RA of wrist Kwaku Figueredo. [facility] [address], [place], [address], [place]. tel:[phone] Referring Provider: Bea Ayala, [facility] [address], [place], [address]. tel:[phone] [facility] , [address], [place], [address], [place] tel:[phone] [facility] , No Information 201 6 Kwaku Figueredo. [facility] [address], [place], [address], [place]. tel:[phone] Family History Family Member Type Diagnosis Age At Onset Mother Problem (finding) Thyroid disorder Paternal grandmother Problem (finding) rheumatoid arth ritis Immunizations Vaccine Date Status Comments COVID-19 Pfizer administered Source: [facility] Unspecified COVID-19 Pfizer administered Source: [facility] Unspecified COVID-19 Pfizer administered Source: Sour ce Unspecified Payers Payer name Insurance type Covered constitution party ID Marvin sigala(s) [facility] [id number] Social History Type Description Quantity Date Captured Comments Alcohol Use Details Unknown Caffeine Use Details Unknown Tobacco Use Status No Information Smoking Status No Information Steven pruett is and has 3 grown children. 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 Sex Female Vital Signs Date / Time: Height Weight BMI Pulse Rate Blood Pressure Temperature Respiratory Rate Body Surface Area Head Circumference Head Circ. Percentile Wt./Justo. Percentile BMI percentile Pulse Ox Inhaled Ox 2:20 PM 66.00 in 82.735 kg (182.40 lbs) 29.4 4 kg/m eter (2) 120/76 mm[Hg] 97.50 F Chief Complaint And Reason For Visit From encounter dated 10/23/2024 14:15'. Follow Up of Rheumatoid arthritis (chief complaint) Reason For Referral Reason For Referral No [...] Pain Functional Status Date Functional Assessmen t Pain Score 3/10 Instructions Date Instruction Additional Infor mation No Information Assessments Type Assessment Date assessment Dry eye syndrome of bilateral la crimal glands assessment RA w/ rheumatoid fac tor of multiple sites w/o organ involvement assessment Fibromyalgia assessment Other exterminator termite (current) drug t herapy assessment Zoster Patient Care Teams Name Effective Dates (start - stop) Status Members No Information
--- OUTSIDE RECORDS SUMMARY | 2025-01-12 12:30 | XMS_ITS | Clinical Summary ---
Author Organization [employer] [facility] Address [address] [place] [address] Care Team Providers Care Silviculture Forester Name Role Phone Mercedez Church MD Primary Care Provider + Allergies Active Allergy Reactions Criticality Noted Date Comments Hydroxychloroquine Rash Low 12/18/2021 Venom-Honey Bee Hives High 12/18/2021 Medications calcium carbonate-zachariah min D3, 600 mg-125 unit, tablet Take 1 Tablet by mouth once daily. Active zinc gluconate 50 mg tablet Take 50 mg by mouth once daily. Active cholecalcifero l (VITAMIN D3) 1,000 unit tablet Take 3,000 units by mouth once daily. Active thyroid (ARMOUR THYROID) 30 mg tablet Take 30 mg by mouth once daily. 1 Active folic acid 1 mg tablet Take 1 mg by mouth once daily. Active EPINEPHrine (AUVI-Q) 0.15 mg/0.15 mL atIn auto-injector Inject 0.15 mg intramuscular each time if needed for Anaphylaxis or Allergic Reaction. 0 Active escitalopram oxalate (LEXAPRO) 10 mg tablet Take 10 mg by mouth once daily. 2 Active methotrexate (RHEUMATREX) 2.5 mg tablet Take 12.5 mg by mouth every Wednesday. Active nadoloL (CORGARD) 80 mg tablet Take 80-120 mg by mouth once daily. 2 Active pregabalin (LYRICA) 75 mg capsule Take 75 mg by mouth once daily. 1 Active rizatriptan (MAXALT) 10 mg tablet Take 10 mg by mouth 2 times daily if needed for Migraine. 1 Active cycloSPORINE 0.05 % drop Place 1 Drop into the eye(s) twice daily 12 hours apart. Active magnesium citrate 100 mg tab Take 100 mg by mouth once daily. Active acetaminophen (TYLENOL EXTRA STRGTH) 500 mg tabletIndicati ons:Acute post-operative pain Take 2 Tablets (1,000 mg) by mouth every 6 hours if needed for Pain. Max acetaminophen dose: 4000mg in 24 hrs. 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[employer] Gender Identity Not on file Sexual Orientation Not on file Obstetrics History Last Filed Vital Signs Vital Sign Reading Time Taken Comments Blood Pressure 111/77 09/24/2022 2:27 PM CDT Pulse 49 09/24/2022 2:27 PM CDT Temperature 36.7 C (98.1 F) 09/24/2022 2:27 PM CDT Respiratory Rate 16 07/02/2022 7:33 AM [...] age 18+ 1983 Hepatitis C screening for ag e 18-79 1983 Zoster (shingles) series for age 50+ (1 of 2) 1984 Tetanus booster 1985 Colonoscopy through age 75 2010 Lipids for age 45-75 2010 Mammogram for age 45-75 2010 Pneumococcal series for age 50+ (1 of 1 - PCV) 2015 COVID-19 vaccine series () 07/23/2024 09/10/2022, 05/12/2022, 07/16/2021 Influenza for age 50-64 07/23/2024 Pap test for age 21-65 07/02/2026 , 07/02/2023, 08/20/2017, Additional history exists Medical Devices Implanted Type Area Sensitizer Device Identifier Shelf Expiration Date Model / Serial / Lot [id number] 1-4mm 60cc Medtronic Fine Canclls Freeze Dried Implanted:Qty: 1 on 06/30/2022 by Dora Castellano MD at [facility] Explanted:at [facility] (Quantity not on file) N/A: Spine Medtronic Spine/Ortho 04/17/2026 [id number] / [id number] / Spacer Lmbr [id number] [place] Convex Stra Tlif - [id number] Implanted:Qty: 1 on 06/30/2022 by Dora Castellano MD at [facility] N/A: Spine [employer] [id number] / / [id number] Spacer Lmbr [id number] [place] Convex Stra Tlif - [id number] Implanted:Qty: 1 on 06/30/2022 by Dora Castellano MD at [facility] N/A: Spine [employer] 02/01/2030 [id number] / / [id number] Set Screw Lmbr 5.5-6mm Vitality Torque - [id number] Implanted:Qty: 6 on 06/30/2022 by Dora Castellano MD at [facility] N/A: Spine [employer] Spine [id number] 01 / / Cisco Lmbr 70x5.5mm Vitality Cvd Titnm - [id number] Implanted:Qty: 2 on 06/30/2022 by Dora Castellano MD at [facility] N/A: Spine [employer] Spine [id number] 11 / / Screw 6.5x45mm Implanted:Qty: 5 on 06/30/2022 by Dora Castellano MD at [facility] N/A: Spine [id number] / / Description:SCREW 6.5X45MM Screw 5.5x45mm Implanted:Qty: 1 on 06/30/2022 by Dora Castellano MD at [facility] N/A: Spine [id number] / / Description:SCREW 5.5X45MM [id number] e Matrix 6cc Elba Dbf Putty Dbm Implanted:Qty: 1 on 06/30/2022 by Dora Castellano MD at [facility] Explanted:at [facility] (Quantity not on file) N/A: Spine Medtronic Spine/Ortho 06/04/2024 [id number] / [id number] / Procedures Procedure Name Priority Date/Time Associated Diagnosis Comments HPV HIGH RISK Routine 07/02/2023 10:49 AM CDT from Last 3 Months or Most Recently Relevant to Health Maintenance Results * HPV HIGH RISK (07/02/2023 10:49 AM CDT) TYPE 16 Negative Negative 07/06/2023 11:43 AM CDT [facility] TYPE 18 Negative Negative 07/06/2023 11:43 AM CDT [facility] OTHER HIGH RISK TYPES Negative Negative 07/06/2023 11:43 AM CDT [facility] Other (Cervical/Vagina l) 07/02/2023 10:49 AM CDT 07/04/2023 11:06 AM CDT Narrative [facility] - 07/06/2023 11:43 AM CDT HPV types 16, 18, 31, 33, 35, 39, 45, 51, 52, 56, 58, 59, 66 and 68 DNA were undetectable or below the pre-set threshold. Methodology: Bird Len 4800 HPV Test Mercedez Church MD MICROBIOLOGY Final Re sult [facility] [address] [place] [address], from Last 3 Months or Most Recently Relevant to Health Maintenance Insurance [facility] Advance Directives * Full Code (Latest Code Status on File) Date Activated Date Inactivated Comments 06/30/2022 11:20 AM 07/02/2022 6:22 PM Question Answer Comments Code Status Discussion: Unable to Assess Preferences, Provider to review later Care Teams Silviculture Forester Relationship Specialty Start Date End Date Mercedez Church MD [address] [place] [address] PCP - General Family Practice 01/22/22
[2025-01-12] MEDS: LACTATED RINGERS 1000 ML 1,000 ML 100 ML IV (13:16)
[2025-01-12] MEDS: SODIUM CHLORIDE 0.9 % (FLUSH) 10 ML SYRINGE IVF (13:16)
[2025-01-12] MEDS: MUPIROCIN 1 GM PACKET 1 APPLIC TOPICAL (14:09)
[2025-01-12] MEDS: COCAINE HCL 4 % 4 ML SOLUTION NOSTRIL-L (14:09)
[2025-01-12] MEDS: BUPIVACAINE 0.5%/EPINEPHRINE 0.9 MG (30.9 ML) INJECTION (14:09)
[2025-01-12] MEDS: AYR SALINE NASAL GEL 1 APPLIC NOSTRIL-B (14:09)
--- NOTE | 2025-01-12 14:32 | W.PM.ENTPROC ---
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 The nose was decongested and injected. A stab incision was made in the anterior of the right inferior turbinate a tunnel created with a Door dissector. The mckinley bone was outfractured and a conservative anterior submucous resection performed. The Coblation was used to cauterize intramurally along the inferior 10% The inferior quarter the uncinate process was taken down. The natural ostium maxillary sinus was occluded by polypoid mucosa which was removed and a 9 mm antrostomy created. A large amount of purulent fluid was aspirated from the sinus this was cultured through the suction tubing. A large amount of polypoid tissue was removed from the area surrounding the opening of the sinus as well. The ethmoid bulla was taken down and dissection carried out an anterior to posterior direction performing complete ethmoidectomy and removing a moderate amount of polypoid tissue. The frontal balloon was easily threaded into the frontal sinus in 2 dilations were performed 1 at the os and 1 just above that. Merocel packing coated in Bactroban and dissolvable packing were placed in the middle meatus on the right side. The patient procedure well was taken recovery in satisfactory condition. Blood loss was less than 25 mL. Surgeon: Gucci Rao MD
--- NOTE | 2025-01-12 14:43 | W.ANESCHARGE ---
Anesthesia Charges Start Date/Time Anesthesia Start Date: 01/12/25 Anesthesia Start Time: 13:47 Stop Date/Time Anesthesia Stop Date: 01/12/25 Anesthesia Stop Time: 14:40 Coding CPT Codes CPT Codes: ANESTH NOSE/SINUS SURGERY - 95928 ([id number]) P2 - PATIENT W/MILD SYST DISEASE, QK - DAIRY FEED WORKER 2-4 CNCRNT ANES PROC, QX - ENTRY LEVEL RECRUITER SVC W/ MD MED DIRECTION
--- NOTE | 2025-01-12 14:43 | W.ANESCHARGE ---
Anesthesia Charges Start Date/Time Anesthesia Start Date: 01/12/25 Anesthesia Start Time: 13:47 Stop Date/Time Anesthesia Stop Date: 01/12/25 Anesthesia Stop Time: 14:40 Coding CPT Codes CPT Codes: ANESTH NOSE/SINUS SURGERY - 84682 ([id number]) P2 - PATIENT W/MILD SYST DISEASE, QK - DRESSMAKER OR TAILOR 2-4 CNCRNT ANES PROC, QX - CARDIOPULMONARY SUPERVISOR SVC W/ MD MED DIRECTION
--- NOTE | 2025-01-12 14:47 | SUR.PHASEI ---
Patient came into PACU awake and no complaints of pain or nausea when asked. Minimal drainage from the nose.
--- NOTE | 2025-01-12 15:02 | SUR.PHASEI ---
Patient meets discharge criteria from PACU.
--- NOTE | 2025-01-12 15:34 | SUR.PHASEII ---
pt denies pain, offered food and drink. declines food. sipping on water. tolerated without difficulty. no drainage noted on her nasal dressing. reviewed d/c instructions with pt and . all questions answered.
--- NOTE | 2025-01-12 15:57 | SUR.PHASEII ---
Patient verbalizes readiness to be discharged and understanding of discharge instructions. Pt tolerated water and did not care for anything else.
== END 2025-01-12 15:56 | disposition home or self-care (01) ==
PROVIDERS: PCP Family Medicine; Visit Provider Otolaryngology
PROC: (CPT 31231; principal; 2025-01-12 13:45)
DX: J32.0 Chronic maxillary sinusitis (principal); J32.1 Chronic frontal sinusitis; J32.2 Chronic ethmoidal sinusitis; J34.3 Hypertrophy of nasal turbinates; J34.89 Other specified disorders of nose and nasal sinuses
CPT/HCPCS: 30140; 31253; 31267; 00160; 87070; 87075; 87186; 87205; 88305; A9270; C1726; J0330; J0461; J1100; J2250; J2405; J2704; J3010; J7120

== ENCOUNTER 2025-01-22 08:48 | Outpatient (CLI) | payer BC, SELFPAY ==
[2025-01-22 11:32] LABS: Basophils Absolute Auto 0.08 K/uL (0.00-0.30); Eosinophils Absolute Auto 0.22 K/uL (0.00-0.50); Eosinophils Percent Auto 2.7 % (0.0-7.0); Hematocrit 45.2 % (33.0-51.0); Hemoglobin* 14.5 gm/dL (12.0-16.0); Immature Granulocytes Abs Auto 0.01 K/uL (0.00-0.30); Immature Granulocytes Pct Auto 0.1 %; Lymphocytes Absolute Auto 1.89 K/uL (0.90-2.90); Mean Corpuscular HGB Conc 32 gm/dL (32-36); Mean Corpuscular Hemoglobin 32 pg (26-34); Mean Corpuscular Volume 99 fL (80-100); Monocytes Percent Auto 8.9 % (0.0-11.0); Neutrophils Percent Auto 64.3 % (42.0-72.0); Platelet Count* 305 K/uL (140-440); RDW Coefficient of Variation % 13.1 % (11.5-15.5); Red Blood Count 4.58 m/uL (4.00-5.20); White Blood Count* 8.23 K/uL (4.50-11.00)
[2025-01-22 11:43] LABS: Slide Review Reflex No
[2025-01-22 11:45] LABS: Albumin* 4.2 g/dL (3.3-5.0)
[2025-01-22 11:48] LABS: Alanine Aminotransferase* 32 U/L (4-35); Aspartate Amino Transferase* 25 U/L (12-35); Estimated Glomerular Filt Rate 65 ml/min
== END 2025-01-22 08:49 | disposition home or self-care (01) ==
LOC: NPINS 08:50
PROVIDERS: PCP Family Medicine; Visit Provider Internal Medicine Rheumatology
DX: M05.79 Rheumatoid arthritis with rheumatoid factor of multiple sites without organ or systems involvement (principal); Z79.899 Other long term (current) drug therapy
CPT/HCPCS: 82040; 82565; 84450; 84460; 85025

== ENCOUNTER 2025-02-26 08:37 | Outpatient (CLI) | payer BC, SELFPAY ==
--- NOTE | 2025-03-06 12:14 | W.PM.SLEEP ---
Sleep Study Details Details Interpreting Provider: Maira Date of Sleep Study: 02/26/25 Sleep Study Details: STUDY TYPE:? Home unattended ? BMI:? 29.9 ORDERING PROVIDER:? Maira INDICATION:? Concern about sleep apnea ? SLEEP SUMMARY:? 511 minutes monitor RESPIRATORY SUMMARY:? AHI 10.5 Low oxygen 85 1.1% of study oxygen less than 90% Snoring 97.5% PERIODIC LIMB MOVEMENTS OF SLEEP:? Not recorded CARDIAC:? Range 49-84, mean 57 point beats per minute IMPRESSION:? Mild obstructive sleep apnea RECOMMENDATION: Treatment options include CPAP, dental appliance and/or airway expansion surgery.
== END 2025-02-26 08:38 | disposition home or self-care (01) ==
LOC: SLEEP 08:38
PROVIDERS: PCP Family Medicine; Visit Provider Otolaryngology
DX: G47.33 Obstructive sleep apnea (adult) (pediatric) (principal)
CPT/HCPCS: 95806

== ENCOUNTER 2025-07-05 07:30 | Outpatient (CLI) | payer BC, SELFPAY | END 2025-07-05 07:31 | disposition home or self-care (01) | LOC: NFLDREF 07-09 15:51 | PROVIDERS: PCP Family Medicine; Referring Provider Family Medicine; Visit Provider Family Medicine | DX: E03.9 Hypothyroidism, unspecified (principal); E78.5 Hyperlipidemia, unspecified; M79.7 Fibromyalgia | CPT/HCPCS: 80053; 80061; 84443 ==

== ENCOUNTER 2025-07-10 15:43 | Outpatient (CLI) | payer BC, SELFPAY ==
--- NOTE | 2025-07-10 16:00 | CRLHL7_ITS ---
For Patients: As a result of the Century Cures Act, medical imaging exams and procedure reports are released immediately into your electronic medical record. You may view this report before your referring provider. If you have questions, please contact your health care provider. BILATERAL DIGITAL SCREENING MAMMOGRAM WITH COMPUTER-AIDED DETECTION AND TOMOSYNTHESIS CLINICAL HISTORY: : Routine screening exam. COMPARISON: June 07, 2024, June 02, 2023, February 12, 2022, November 08, 2017, September 11, 2014 TECHNIQUE: Digital mammogram in CC and MLO projections including computer-aided detection (CAD) and tomosynthesis. BREAST COMPOSITION: The breasts are heterogeneously dense, which may obscure small masses. FINDINGS: RIGHT Breast: Asymmetry/possible architectural distortion right breast 6 cm from the nipple on the MLO view LEFT Breast: No suspicious findings. IMPRESSION: RIGHT breast asymmetry/mass. RECOMMENDATIONS: Additional mammographic views of the RIGHT breast including 90 degree lateral view, spot MLO view. RIGHT breast ultrasound may also be required. A member of the health care team will contact the patient to schedule the required additional imaging appointment. BI-RADS Category 0: Incomplete: Need Additional Imaging Evaluation Dictated by Lana Lopez MD @ 07/11/2025 10:20:30 AM (Electronically Signed)
== END 2025-07-10 15:44 | disposition home or self-care (01) ==
LOC: MAMMO 15:44
PROVIDERS: PCP Family Medicine; Visit Provider Family Medicine
DX: Z12.31 Encounter for screening mammogram for malignant neoplasm of breast (principal); N63.10 Unspecified lump in the right breast, unspecified quadrant; R92.333 Mammographic heterogeneous density, bilateral breasts
CPT/HCPCS: 77063; 77067

== ENCOUNTER 2025-07-24 10:51 | Outpatient (CLI) | payer BC, SELFPAY ==
[2025-07-24 14:22] LABS: Hematocrit* 43.6 % (33.0-51.0); Hemoglobin* 14.2 gm/dL (12.0-16.0); Immature Granulocytes Abs Auto 0.01 K/uL (0.00-0.30); Immature Granulocytes Pct Auto 0.1 %; Lymphocytes Absolute Auto 2.27 K/uL (0.90-2.90); Mean Corpuscular HGB Conc 33 gm/dL (32-36); Mean Corpuscular Hemoglobin 31 pg (26-34); Mean Corpuscular Volume 97 fL (80-100); RDW Coefficient of Variation % 13.6 % (11.5-15.5); Red Blood Count* 4.52 m/uL (4.00-5.20); White Blood Count* 8.33 K/uL (4.50-11.00)
[2025-07-24 14:34] LABS: Albumin* 4.0 g/dL (3.3-5.0)
[2025-07-24 14:37] LABS: Alanine Aminotransferase* 27 U/L (4-35); Aspartate Amino Transferase* 39 U/L (12-35); Creatinine* 1.0 mg/dL (0.5-1.5); Estimated Glomerular Filt Rate 64 ml/min
[2025-07-24 14:45] LABS: Slide Review Reflex No
== END 2025-07-24 10:52 | disposition home or self-care (01) ==
LOC: NPINS 10:52
PROVIDERS: PCP Family Medicine; Visit Provider Internal Medicine Rheumatology
DX: M05.79 Rheumatoid arthritis with rheumatoid factor of multiple sites without organ or systems involvement (principal); Z79.899 Other long term (current) drug therapy
CPT/HCPCS: 82040; 82565; 84450; 84460; 85025

== ENCOUNTER 2025-07-25 07:29 | Outpatient (CLI) | payer BC, SELFPAY ==
--- NOTE | 2025-07-25 07:45 | CRLHL7_ITS ---
For Patients: As a result of the Cures Act, medical imaging exams and procedure reports are released immediately into your electronic medical record. You may view this report before your referring provider. If you have questions, please contact your health care provider. DIGITAL DIAGNOSTIC RIGHT MAMMOGRAM USING TOMOSYNTHESIS RIGHT BREAST ULTRASOUND CLINICAL HISTORY: RIGHT breast mass/asymmetry. COMPARISON: 07/10/2025, 06/07/2024, 06/02/2023. TECHNIQUE: Digital RIGHT mammogram in two projections. Tomosynthesis was used in this interpretation. Real-time ultrasound imaging of RIGHT breast with imaging documentation. BREAST COMPOSITION: There are scattered areas of fibroglandular density. FINDINGS: Additional images RIGHT breast submitted. Decreased conspicuity of previously noted asymmetric density. No architectural distortion or suspicious calcifications. Targeted RIGHT breast ultrasound performed. At 8-10 o`clock 5 cm from the nipple, there are small benign cysts and intramammary lymph nodes. For example, one lymph node is measured at mid depth measuring 3 x 2 x 4 millimeters. No shadowing lesion. IMPRESSION: No suspicious findings. RECOMMENDATIONS: Routine screening mammography. A lay language report of this examination will be provided to the patient. BI-RADS Category 2: Benign Dictated by Emmanuel Castle MD @ 07/25/2025 10:28:39 AM jj/Dictated by: Emmanuel Castle MD @ 07/25/2025 10:29:00 AM (Electronically Signed)
--- NOTE | 2025-07-25 08:15 | CRLHL7_ITS ---
For Patients: As a result of the Cures Act, medical imaging exams and procedure reports are released immediately into your electronic medical record. You may view this report before your referring provider. If you have questions, please contact your health care provider. SEE DIGITAL DIAGNOSTIC RIGHT MAMMOGRAM PERFORMED SAME DAY CRL:nuria quiñones/Dictated by: Emmanuel Castle MD @ 07/25/2025 10:29:00 AM (Electronically Signed)
== END 2025-07-25 07:30 | disposition home or self-care (01) ==
PROVIDERS: PCP Family Medicine; Visit Provider Family Medicine
DX: N63.10 Unspecified lump in the right breast, unspecified quadrant (principal); R92.8 Other abnormal and inconclusive findings on diagnostic imaging of breast
CPT/HCPCS: 76642; 77065; G0279

== ENCOUNTER 2025-09-25 07:25 | Outpatient (CLI) | payer BC, SELFPAY | END 2025-09-25 07:26 | disposition home or self-care (01) | LOC: INJ CL 07:26 | PROVIDERS: PCP Family Medicine; Visit Provider Family Medicine | DX: M51.26 Other intervertebral disc displacement, lumbar region (principal); M48.062 Spinal stenosis, lumbar region with neurogenic claudication; M54.16 Radiculopathy, lumbar region | CPT/HCPCS: 64483; J1100; Q9966 ==